=== PATIENT | female | born 1965 | race Caucasian/White ===

== ENCOUNTER → 2016-06-02 | Outpatient (CLI) | payer BC ==
--- NOTE | 2016-06-02 19:40 | DIAGNOSTIC IMAGING REPORT ---
CHEST 2 VIEWS ROUTINE CLINICAL HISTORY: COUGH, WHEEZING, OTHER SPECIFIED SYMPTOMS AND SIGNS INVOLVING COMPARISON STUDY: No previous studies for comparison. FINDINGS: The bones soft tissues and hemidiaphragms are normal. The cardiomediastinal silhouette is normal. The lungs are clear. The pulmonary vasculature is normal. IMPRESSION: Negative chest. Electronically signed by: Mukund Sousa M.D. 06/02/2016 7:38 PM
== END | disposition home or self-care (01) ==
LOC: C.RAD 19:18
PROVIDERS: ATTEND Family Medicine
DX: R05 Cough (principal); R09.89 Other specified symptoms and signs involving the circulatory and respiratory systems; R06.2 Wheezing

== ENCOUNTER 2019-04-18 23:09 | Inpatient (IN) ==
[2019-04-18] MEDS ORDERED: SODIUM CHLORIDE 0.9% 1000ML 1,000 ML IV SCH (23:45)
[2019-04-18 23:59] LABS: Basophils # (auto) 0.07 K/uL (0-0.2); Basophils % (auto) 0.3 %; Eosinophils # (auto) 0.01 K/uL (0-0.5); Hematocrit (blood only) 54.3 % (37-47); Hemoglobin 18.9 g/dL (12.0-16.0); Immature Granulocytes # (auto) 0.69 K/uL (0.00-0.02); Immature Granulocytes % (auto) 3.1 %; Lymphocytes # (auto) 1.32 K/uL (1.2-3.4); Mean Corpuscular Hemoglobin 37.1 pg (25-34); Mean Corpuscular Hgb Conc 34.8 g/dL (32-36); Mean Corpuscular Volume 106.5 fL (80-100); Mean Platelet Volume 11.5 fL (7.4-10.4); Monocytes # (auto) 1.53 K/uL (0.11-0.59); Neutrophils # (auto) 18.33 K/uL (1.4-6.5); Neutrophils % (auto) 83.6 %; Platelet Count 246 K/uL (130-400); RDW Standard Deviation 55.3 fL (36.4-46.3); White Blood Count 21.95 K/uL (4.8-10.8)
[2019-04-19 00:05] LABS: Partial Thromboplastin Ratio 0.9; Partial Thromboplastin Time 23.7 Seconds (21.0-31.0); Prothrombin Time 10.1 Seconds (9.0-12.0)
[2019-04-19 00:28] LABS: Albumin Globulin Ratio 0.7 (0.9-2); Albumin Level 3.4 gm/dl (3.4-5.0); BUN Creatinine Ratio 12.8 (10-20); Bilirubin,Total 0.7 mg/dl (0.2-1); Calcium 10.1 mg/dl (8.5-10.1); Creatinine Clr Calc Pharmacy 44.5 ml/min; Est GFR (African American) 37.1; Globulin 5.2 gm/dl (2.5-4.0); Total Protein 8.6 gm/dl (6.4-8.2)
[2019-04-19] MEDS ORDERED: SODIUM CHLORIDE 0.9% 1000ML 1,000 ML IV ONE (00:47)
[2019-04-19 00:48] LABS: Allen Test Pos (Pos); HCO3 ABG 6 mmol/L (19-24); Oxygen Saturation ABG 93.5 % (90-95); PCO2 ABG 16 mmHg (35-46); PO2 ABG 71 mm/Hg (80-95); pH ABG 7.21 (7.35-7.45)
[2019-04-19] MEDS ORDERED: OPTIRAY 320 125ml IV PRN (01:09)
[2019-04-19] MEDS ORDERED: PIPERACILLIN/TAZOBACTAM 4.5 GM/120 ML BAG IV ONE (01:31)
[2019-04-19] MEDS ORDERED: LEVOFLOXACIN/D5W 750 MG/150 ML BAG IV STA (01:31)
[2019-04-19] MEDS ORDERED: PIPERACILL/TAZOBAC CONSULT ACTIVE PRN (01:31)
[2019-04-19] MEDS ORDERED: ED DKA INSULIN DRIP ONE ×2 (01:41→01:52)
[2019-04-19 01:49] LABS: Appearance Urine Slightly Cloudy (Clear); Blood Urine 1+ (Negative); Color Urine Yellow; Glucose Urine UA 2+ (Negative); Leukocyte Esterase Urine Negative (Negative); Nitrite Urine Negative (Negative); Protein Urine 1+ (Negative); Urobilinogen Urine Negative (Negative); pH Urine 5.5 (4.5-7.5)
[2019-04-19] MEDS ORDERED: GLUCAGON FOR INJ 1 MG VIAL SQ PRN (01:52)
[2019-04-19] MEDS ORDERED: DKA GOAL RANGE 150-250 mg/dl ONE ×2 (01:52→03:53)
[2019-04-19] MEDS ORDERED: GLUCOSE 40% GEL 15 GM TUBE PO PRN ×2 (01:52→04:45)
[2019-04-19] MEDS ORDERED: CARBOHYDRATES FOR HYPOGLYCEMIA PO PRN ×2 (01:52→04:45)
[2019-04-19] MEDS ORDERED: GLUCOSE 10 TABS/TUBE PO PRN ×2 (01:52→04:45)
[2019-04-19] MEDS ORDERED: DEXTROSE 50% 50 ML SYRINGE IV PRN ×2 (01:52→04:45)
[2019-04-19 01:58] LABS: Bilirubin Urine Negative (Negative); Ictotest Urine Negative (Negative); Ketones Urine 3+ (Negative)
[2019-04-19] MEDS ORDERED: SODIUM CHLORIDE 0.9% 1000ML 1,000 ML IV SCH (02:00)
[2019-04-19] MEDS ORDERED: NovoLIN-R BOLUS FROM BAG IV ONE ×2 (02:00→04:45)
[2019-04-19] MEDS ORDERED: INSULIN REGULAR 250 UNITS in SODIUM CHLORIDE 0.9% 247.5 ML IV SCH (02:00)
[2019-04-19 02:10] LABS: Epithelial Cell Urine 0-5 /lpf (0-5); Hyaline Casts Urine 0-5 /lpf (0-5); RBC Urine 0-4 /hpf (0-4)
[2019-04-19 02:11] LABS: Bacteria Urine 1+ (Negative); WBC Urine 0-5 /hpf (0-5)
[2019-04-19] MEDS ORDERED: LACTATED RINGER'S 1,000 ML IV ONE (02:41)
[2019-04-19 02:43] LABS: Magnesium 2.2 mg/dl (1.8-2.4); Phosphorus 2.2 mg/dl (2.5-4.9)
--- NOTE | 2019-04-19 03:09 | History & Physical Report ---
Date of Service April 19, 2019 Assessment & Plan (1) Bilateral pneumonia: (2) DKA (diabetic ketoacidoses): 54-year-old female with history of adrenal insufficiency, DM 2, hyperlipidemia, trigeminal neuralgia, anxiety presents with altered mental status and shortness of breath x3 days. Found to have DKA and concern for bilateral pneumonia Altered mental status Likely in the setting of DKA, dehydration and infection as below CT head: Negative Alert and oriented x4 on exam Monitor clinically DKA BSG 383 initially, beta hydroxybutyrate 74.6 Bicarb 11 anion gap 20, potassium 5 ABG: pH 7.2, CO2 16, O2 71 HCO3 6 UA: 2+ glucose and 3+ ketones Received 8.8 units of regular insulin Received 3 L of IV fluid bolus Started on on insulin drip and DKA protocol, a glycemic-consult placed Fluids at 200 cc/h Patient is on metformin and Januvia at homehold Sliding scale insulin when ready to be transitioned to subcu clinical informatics educator consulted Follow BMP Concern for bilateral pneumonia Possibly in the setting of aspiration given altered mental status WBC 21.9, afebrile CTA chest: No PE bilateral ground glass opacities concerning for possible pneumonia versus edema Lactate normal Pro-Kalin 0.4 Received Zosyn and Levaquin in the ED Started on azithromycin and Rocephin PAMELLA likely in the setting of DKA and dehydration BUN/creatinine 23/1.7 -known baseline creatinine On IV fluids Hold home spironolactone Continue to monitor BMP Adrenal insufficiency Patient on hydrocortisone 40 mg daily -can increase it to 50 mg daily starting Thursday, 3 days ago as she noted she was feeling ill Started on hydrocortisone 80 mg daily - stress dose Hypertension? Hold home's prolactin setting of PAMELLA Hypothyroidism TSH ordered Continue home levothyroxine Trigeminal neuralgia Continue home oxycodone as needed, gabapentin and amitriptyline Anxiety Continue BuSpar FEN/GI: IVF fluids, n.p.o. Code: Full DVT prophylaxis: SCDs, encourage ambulation Disposition: PCU telemetry (3) Adrenal insufficiency: (4) Trigeminal neuralgia: History of Present Illness Chief Complaint: Shortness of breath and altered mental status Primary Care Provider: Elissa Davis PA-C 54-year-old female with history of adrenal insufficiency, DM 2, hyperlipidemia, trigeminal neuralgia, anxiety presents with altered mental status and shortness of breath x3 days. Per her children she was unable to make dinner on Thursday as she was not feeling well. She was complaining of having heartburn and nausea at the time in addition to being short of breath. Thursday she slept most of the day and today as well. She was noted to be tripping and uncoordinated. Her daughter says she slipped over pillow but did not hit her head. She reports being cold, having a headache and dry cough. She is not sure she has had a fever. Denies any lightheadedness, chest pain, abdominal pain, vomiting, diarrhea, constipation, hematochezia, melena, hematuria, dysuria. Patient reports taking her diabetic medications and all other medications. She also reports increasing her hydrocortisone dose from 40 mg to 50 mg on Thursday as she relates she was not feeling well. However she did not have much to eat or drink on Thursday and today. Allergies Allergy/AdvReac Type Severity Reaction Status Date / Time No Known Allergies Allergy Unverified 04/19/19 00:22 Home Medications Home Medications Medication Instructions Recorded Confirmed Type alprazolam 0.5 mg PO DIRECTED PRN 04/19/19 04/19/19 History amitriptyline 25 mg PO HS 04/19/19 04/19/19 History amitriptyline 100 mg PO HS 04/19/19 04/19/19 History buspirone 15 mg PO BID 04/19/19 04/19/19 History empagliflozin [Jardiance] 10 mg PO DAILY 04/19/19 04/19/19 History escitalopram oxalate 10 mg PO DAILY 04/19/19 04/19/19 History gabapentin 800 mg PO QID 04/19/19 04/19/19 History hydrocortisone 10 mg PO DIRECTED 04/19/19 04/19/19 History levothyroxine [Synthroid] 100 mcg PO DAILY 04/19/19 04/19/19 History metformin 500 mg PO BID 04/19/19 04/19/19 History oxycodone 10 mg PO DIRECTED PRN 04/19/19 04/19/19 History spironolactone 100 mg PO DAILY 04/19/19 04/19/19 History zolpidem [Ambien] 10 mg PO HS PRN 04/19/19 04/19/19 History Past Med/Surg History Medical History Adrenal insufficiency Diabetes Trigeminal neuralgia Family History Other No significant family history Social History Current Living Situation: Family current occupational status: employed Feels Safe at Home: Yes Smoking Status: Never smoker Review of Systems Review of Systems: As per HPI Physical Exam Physical Exam: General: In mild distress Neuro: A&O x 4 HEENT: dry oral mucosa Pulm: CTAB equal breath sounds bilaterally, tachypneic to 30s, ketotic breath CV: mildly tachycardic, regular rhythm no m/r/g Abdomen:+BS, no TTP in all quadrants, non-distended LE: no LE edema, no calf TTP Results & Data Vital Signs (Past 12 Hours) Vital Signs Temp Pulse Pulse Resp BP BP Pulse Ox 04/19/19 02:37 105 H 34 H 134/84 94 04/19/19 01:20 104 H 35 H 95 04/19/19 01:11 36.7 C 108 H 42 H 95 04/19/19 01:10 107 H 40 H 96 04/19/19 01:09 108 H 36 H 153/105 H 95 04/19/19 01:08 107 H 37 H 95 04/19/19 01:07 108 H 38 H 153/105 H 95 04/19/19 00:51 98 H 36 H 146/100 H 96 04/19/19 00:42 110 H 30 H 149/89 H 94 04/19/19 00:40 111 H 34 H 94 04/19/19 00:34 111 H 32 H 93 04/19/19 00:28 105/68 04/19/19 00:20 108 H 25 H 04/19/19 00:10 106 H 35 H 04/19/19 00:00 107 H 34 H 04/18/19 23:50 109 H 40 H 94 04/18/19 23:47 109 H 43 H 144/109 H 95 04/18/19 23:40 111 H 36 H 95 04/18/19 23:35 113 H 43 H 127/100 95 04/18/19 23:30 117 H 40 H 04/18/19 23:24 119 H 34 H 04/18/19 23:23 118 H 90/80 L 04/18/19 23:12 79 32 H 90/80 L 99 Laboratory Results Abnormal lab results 04/18/19 04/18/19 04/19/19 Range/Units 23:35 23:35 00:34 WBC 21.95 H (4.8-10.8) K/uL Hgb 18.9 H (12.0-16.0) g/dL Hct 54.3 H (37-47) % MCV 106.5 H (80-100) fL MCH 37.1 H (25-34) pg RDW Std Deviation 55.3 H (36.4-46.3) fL MPV 11.5 H (7.4-10.4) fL Immature Gran # (Auto) 0.69 H (0.00-0.02) K/uL Neut # (Auto) 18.33 H (1.4-6.5) K/uL Mckean # (Auto) 1.53 H (0.11-0.59) K/uL ABG pH 7.21 L (7.35-7.45) ABG pCO2 16 L (35-46) mmHg ABG pO2 71 L (80-95) mm/Hg ABG HCO3 6 L (19-24) mmol/L ABG Base Excess -19.0 L (-9-1.8) mEq/L Sodium 132 L (136-145) mmol/L Carbon Dioxide 11 L (21-32) mmol/L Anion Gap 20.0 H (3-11) BUN 23 H (7-18) mg/dl Creatinine 1.77 H (0.6-1.2) mg/dl Glucose 383 H* (70-99) mg/dl Phosphorus (2.5-4.9) mg/dl AST 40 H (15-37) U/L Alkaline Phosphatase 153 H (45-117) U/L Total Protein 8.6 H (6.4-8.2) gm/dl Globulin 5.2 H (2.5-4.0) gm/dl Albumin/Globulin Ratio 0.7 L (0.9-2) Beta-Hydroxybutyric Acd (0.2-2.81) mg/dl Urine Protein (Negative) Urine Glucose (UA) (Negative) Urine Ketones (Negative) Urine Blood (Negative) Urine Bacteria (Negative) Granular Casts (0) /lpf 04/19/19 04/19/19 04/19/19 Range/Units 00:34 01:40 02:02 WBC (4.8-10.8) K/uL Hgb (12.0-16.0) g/dL Hct (37-47) % MCV (80-100) fL MCH (25-34) pg RDW Std Deviation (36.4-46.3) fL MPV (7.4-10.4) fL Immature Gran # (Auto) (0.00-0.02) K/uL Neut # (Auto) (1.4-6.5) K/uL Mckean # (Auto) (0.11-0.59) K/uL ABG pH (7.35-7.45) ABG pCO2 (35-46) mmHg ABG pO2 (80-95) mm/Hg ABG HCO3 (19-24) mmol/L ABG Base Excess (-9-1.8) mEq/L Sodium (136-145) mmol/L Carbon Dioxide (21-32) mmol/L Anion Gap (3-11) BUN (7-18) mg/dl Creatinine (0.6-1.2) mg/dl Glucose (70-99) mg/dl Phosphorus 2.2 L (2.5-4.9) mg/dl AST (15-37) U/L Alkaline Phosphatase (45-117) U/L Total Protein (6.4-8.2) gm/dl Globulin (2.5-4.0) gm/dl Albumin/Globulin Ratio (0.9-2) Beta-Hydroxybutyric Acd 74.66 H 70.39 H (0.2-2.81) mg/dl Urine Protein 1+ H (Negative) Urine Glucose (UA) 2+ H (Negative) Urine Ketones 3+ H (Negative) Urine Blood 1+ H (Negative) Urine Bacteria 1+ H (Negative) Granular Casts 5-10 H (0) /lpf Code Status & VTE Plan Code Status Full code VTE Prophylaxis Plan VTE Prophylaxis will be ordered: Yes Supervising Physician Co-Signing Physician Notes Patient seen and examined, chart reviewed, case discussed with Dr. Whitfield and I agree with her assessment and plan as documented above. Briefly patient is a 54-year-old female presenting what appears to be DKA. Elevated blood sugar, anion gap metabolic acidosis with pH equal 7.21. On exam she is afebrile, tachycardic, tachypneic with Kussmaul respirations, ketotic odor Dry mucous membranes S1-S2 present, tachycardic Lungs CTA Abdomen bowel sounds present soft, nontender, nondistended Extremities without edema Labs and images reviewed Assessment/plan Continue aggressive IV fluids, insulin drip per DKA protocol Will double home steroid dosage and watch closely for evidence of adrenal insufficiency -Ceftriaxone and azithromycin for possible pneumonia -Remainder of plan as above Resident Activity Tracking Resident Involvement: Resident Care Provided Care Provided: Adult Hospital Medicine (1) DKA (diabetic ketoacidoses) Diabetes mellitus complication detail: without coma Diabetes mellitus type: other specified (including VICKY) Qualified Code(s): E13.10 - Other specified diabetes mellitus with ketoacidosis without coma (2) Bilateral pneumonia Lung location: unspecified part of lung Pneumonia type: due to unspecified organism Qualified Code(s): J18.9 - Pneumonia, unspecified organism
[2019-04-19 03:10] LABS: Beta-Hydroxybutyrate 70.39 mg/dl (0.2-2.81)
[2019-04-19] MEDS ORDERED: ALPRAZolam 0.5 MG TABLET PO PRN ×2 (03:53)
[2019-04-19] MEDS ORDERED: ONDANSETRON INJ 2 MG/ML 2 ML VIAL IV PRN (03:53)
[2019-04-19] MEDS ORDERED: ZOLPIDEM TARTRATE 10 MG TAB PO PRN (03:53)
[2019-04-19] MEDS ORDERED: OXYCODONE HCL IR 5 MG TAB (IMMEDIATE RELEASE) PO PRN (03:53)
[2019-04-19] MEDS ORDERED: LACTATED RINGER'S 1,000 ML IV SCH (03:53)
--- NOTE | 2019-04-19 04:18 | Billing Data ---
Coding Level of Care Code 33114 Initial Inpt Care Lvl 3
[2019-04-19] MEDS ORDERED: PHARMACY GLYCEMIC MGMT CONSULT PRN (04:30)
--- NOTE | 2019-04-19 04:33 | Emergency Department Note ---
Entered by Daryl Storey acting as a scribe for Lo Snell DO History of Present Illness General Chief complaint: Shortness of Breath/Dyspnea Stated complaint: NAUSEA, EXHAUSTION, OUT OF BREATH Time Seen by Provider: 04/18/19 23:18 Source: patient History of Present Illness Onset (ago): day(s) (yesterday) Location: chest Pain Consistency: + constant Quality: + other (SOB) Associated symptoms: + other (Positive for issues with coordination, a cough, vomiting, sleeping more than usual, and not eating a lot.) The patient is a 54 year old female who presents to the emergency department with complaints of constant SOB beginning yesterday. The patient states that she developed issues with coordination a few days ago. She notes that she keeps running into things. She reports that she developed SOB and a cough yesterday. She also complains of vomiting and she states that she has been sleeping more over the last few days because she has been so tired. She notes that she has not been eating a lot over the last few days. She reports that she has a history of trigeminal neuralgia, adrenal insufficiency, and diabetes, but she denies any history of breathing problems and hypotension. The patient states that her last sugar was 171. She notes that she drank an entire bottle of owen beer this morning because she thought that her blood sugar was low. She reports that she takes 6-7 oxycodone pills a day, but she believes that she has never withdrawn from her oxycodone before. Home Medications Home Medications Medication Instructions Recorded Confirmed Type alprazolam 0.5 mg PO DIRECTED PRN 04/19/19 04/19/19 History amitriptyline 25 mg PO HS 04/19/19 04/19/19 History amitriptyline 100 mg PO HS 04/19/19 04/19/19 History buspirone 15 mg PO BID 04/19/19 04/19/19 History empagliflozin [Jardiance] 10 mg PO DAILY 04/19/19 04/19/19 History escitalopram oxalate 10 mg PO DAILY 04/19/19 04/19/19 History gabapentin 800 mg PO QID 04/19/19 04/19/19 History hydrocortisone 10 mg PO DIRECTED 04/19/19 04/19/19 History levothyroxine [Synthroid] 100 mcg PO DAILY 04/19/19 04/19/19 History metformin 500 mg PO BID 04/19/19 04/19/19 History oxycodone 10 mg PO DIRECTED PRN 04/19/19 04/19/19 History spironolactone 100 mg PO DAILY 04/19/19 04/19/19 History zolpidem [Ambien] 10 mg PO HS PRN 04/19/19 04/19/19 History Allergies Allergy/AdvReac Type Severity Reaction Status Date / Time No Known Allergies Allergy Unverified 04/19/19 00:22 Past Med/Surg History Medical History Adrenal insufficiency Diabetes Trigeminal neuralgia Family History Other No significant family history Social History Current Living Situation: Family current occupational status: employed Feels Safe at Home: Yes Smoking Status: Never smoker Review of Systems See HPI for pertinent positives & negatives. and A total of 10 systems reviewed and were otherwise negative Physical Exam Vital Signs Vital Signs - 24 hr 04/18/19 23:12 04/18/19 23:23 04/18/19 23:24 Temperature Temperature Source Pulse Rate 79 118 H 119 H Pulse Rate [Right Finger] Pulse Rate from SpO2 Sensor Pulse Rhythm Regular Pulse Rhythm [Right Finger] Pulse Strength Normal Pulse Strength [Right Finger] Respiratory Rate 32 H 34 H Respiratory Effort / Characteristics Non-Labored Respiratory Depth Normal Respiratory Pattern Regular Blood Pressure 90/80 L 90/80 L Blood Pressure [Right Arm] Blood Pressure Mean 83 82 Blood Pressure Mean [Right Arm] Blood Pressure Position Sitting Blood Pressure Position [Right Arm] Pulse Oximetry 99 Oxygen Delivery Method Room Air Sepsis Recent Fever Within 48 Hours No Sepsis Action Taken by Nursing No Action Required 04/18/19 23:30 04/18/19 23:35 04/18/19 23:40 Temperature Temperature Source Pulse Rate 117 H 113 H 111 H Pulse Rate [Right Finger] Pulse Rate from SpO2 Sensor 114 H 111 H Pulse Rhythm Pulse Rhythm [Right Finger] Pulse Strength Pulse Strength [Right Finger] Respiratory Rate 40 H 43 H 36 H Respiratory Effort / Characteristics Respiratory Depth Respiratory Pattern Blood Pressure 127/100 Blood Pressure [Right Arm] Blood Pressure Mean 116 Blood Pressure Mean [Right Arm] Blood Pressure Position Blood Pressure Position [Right Arm] Pulse Oximetry 95 95 Oxygen Delivery Method Sepsis Recent Fever Within 48 Hours Sepsis Action Taken by Nursing 04/18/19 23:47 04/18/19 23:50 04/19/19 00:00 Temperature Temperature Source Pulse Rate 109 H 109 H 107 H Pulse Rate [Right Finger] Pulse Rate from SpO2 Sensor 109 H 110 H Pulse Rhythm Pulse Rhythm [Right Finger] Pulse Strength Pulse Strength [Right Finger] Respiratory Rate 43 H 40 H 34 H Respiratory Effort / Characteristics Respiratory Depth Respiratory Pattern Blood Pressure 144/109 H Blood Pressure [Right Arm] Blood Pressure Mean 130 Blood Pressure Mean [Right Arm] Blood Pressure Position Blood Pressure Position [Right Arm] Pulse Oximetry 95 94 Oxygen Delivery Method Sepsis Recent Fever Within 48 Hours Sepsis Action Taken by Nursing 04/19/19 00:10 04/19/19 00:20 04/19/19 00:28 Temperature Temperature Source Pulse Rate 106 H 108 H Pulse Rate [Right Finger] Pulse Rate from SpO2 Sensor Pulse Rhythm Pulse Rhythm [Right Finger] Pulse Strength Pulse Strength [Right Finger] Respiratory Rate 35 H 25 H Respiratory Effort / Characteristics Respiratory Depth Respiratory Pattern Blood Pressure 105/68 Blood Pressure [Right Arm] Blood Pressure Mean 72 Blood Pressure Mean [Right Arm] Blood Pressure Position Blood Pressure Position [Right Arm] Pulse Oximetry Oxygen Delivery Method Sepsis Recent Fever Within 48 Hours Sepsis Action Taken by Nursing 04/19/19 00:34 04/19/19 00:40 04/19/19 00:42 Temperature Temperature Source Pulse Rate 111 H 111 H 110 H Pulse Rate [Right Finger] Pulse Rate from SpO2 Sensor 111 H 111 H 111 H Pulse Rhythm Pulse Rhythm [Right Finger] Pulse Strength Pulse Strength [Right Finger] Respiratory Rate 32 H 34 H 30 H Respiratory Effort / Characteristics Respiratory Depth Respiratory Pattern Blood Pressure 149/89 H Blood Pressure [Right Arm] Blood Pressure Mean 125 Blood Pressure Mean [Right Arm] Blood Pressure Position Blood Pressure Position [Right Arm] Pulse Oximetry 93 94 94 Oxygen Delivery Method Sepsis Recent Fever Within 48 Hours Sepsis Action Taken by Nursing 04/19/19 00:51 04/19/19 01:07 04/19/19 01:08 Temperature Temperature Source Pulse Rate 108 H 107 H Pulse Rate [Right Finger] 98 H Pulse Rate from SpO2 Sensor 156 H 108 H Pulse Rhythm Pulse Rhythm [Right Finger] Regular Pulse Strength Pulse Strength [Right Finger] Respiratory Rate 36 H 38 H 37 H Respiratory Effort / Characteristics Respiratory Depth Respiratory Pattern Blood Pressure 153/105 H Blood Pressure [Right Arm] 146/100 H Blood Pressure Mean 120 Blood Pressure Mean [Right Arm] 115 Blood Pressure Position Blood Pressure Position [Right Arm] Pulse Oximetry 96 95 95 Oxygen Delivery Method Room Air Sepsis Recent Fever Within 48 Hours Sepsis Action Taken by Nursing 04/19/19 01:09 04/19/19 01:10 04/19/19 01:11 Temperature 36.7 C Temperature Source Oral Pulse Rate 107 H Pulse Rate [Right Finger] 108 H 108 H Pulse Rate from SpO2 Sensor 108 H Pulse Rhythm Pulse Rhythm [Right Finger] Regular Pulse Strength Pulse Strength [Right Finger] Normal Respiratory Rate 36 H 40 H 42 H Respiratory Effort / Characteristics Non-Labored Respiratory Depth Normal Respiratory Pattern Blood Pressure Blood Pressure [Right Arm] 153/105 H Blood Pressure Mean Blood Pressure Mean [Right Arm] 121 Blood Pressure Position Blood Pressure Position [Right Arm] Lying Pulse Oximetry 95 96 95 Oxygen Delivery Method Room Air Room Air Sepsis Recent Fever Within 48 Hours Sepsis Action Taken by Nursing 04/19/19 01:20 04/19/19 02:37 Temperature Temperature Source Pulse Rate 104 H Pulse Rate [Right Finger] 105 H Pulse Rate from SpO2 Sensor 103 H Pulse Rhythm Pulse Rhythm [Right Finger] Regular Pulse Strength Pulse Strength [Right Finger] Normal Respiratory Rate 35 H 34 H Respiratory Effort / Characteristics Respiratory Depth Normal Respiratory Pattern Regular Blood Pressure Blood Pressure [Right Arm] 134/84 Blood Pressure Mean Blood Pressure Mean [Right Arm] 100 Blood Pressure Position Blood Pressure Position [Right Arm] Lying Pulse Oximetry 95 94 Oxygen Delivery Method Room Air Sepsis Recent Fever Within 48 Hours Sepsis Action Taken by Nursing General: Appears very SOB with a respiratory rate greater than 60. HEENT: Head - normocephalic and atraumatic. Pupils are equal, round, and reactive to light. Extraocular eye muscles are intact and sclera are anicteric. Ears - bilaterally patent canals with noninjected tympanic membranes and no evidence of hemotympanum. Nose - moist nasal mucosa without discharge. Mouth - extremely dry buccal mucosa. Oropharynx is nonerythematous and there is no tonsillar exudate or edema noted. Neck: Supple; no cervical lymphadenopathy. Heart: Regular rhythm and tachycardic. There is a normal S1 and S2 with no murmurs, clicks, or gallops appreciated. Lungs: Clear to auscultation bilaterally with no wheezes, rales, or rhonchi. Abdomen: Soft, completely nontender, nondistended, with good bowel sounds. There are no palpable pulsatile masses or hepatosplenomegaly. There is no guarding, rigidity, or rebound noted. Extremities: No evidence of cyanosis, clubbing, or edema. There are easily palpable peripheral pulses. Skin: Extremely dry with poor turgor, no rashes. Neuro:The patient is awake and alert, oriented to day, time, and place. Muscle strength is 5/5 in all 4 extremities. The patient has equal bottom turning lathe turner strength and equal pedal push and pull. There are no cerebellar signs. Course Course 2323: The patient was evaluated in room B5. A complete history and physical examination were performed. Nursing notes and previous electronic medical records were reviewed. IV lock was established and labs were drawn as above. 0000: I rechecked the patient. Her blood pressure is improved and her heart rate is down slightly. Her blood sugar is almost 500. 0031: I reevaluated and updated the patient. She is already on a high dose of hydrocortisone at 50mg. Over the past week she has been trying to decrease her dose. She notes that when her illness started, she upped it back to 50mg. She reports that her normal blood sugar is in the 300s, so she thought that her blood sugar of 171 earlier was low, which prompted her to drink a bottle of soda. I performed a neurologic exam on the patient which was normal. She states that her symptoms started around 1700 on Thursday. She is going to CT and her blood pressure remains stable. She will get additional fluids. Her pH is 7.2. 0044: Sodium Chloride 1000 mls @ 999 mls/hr IV 0114: Sodium Chloride 1000 mls @ 999 mls/hr IV 0133: Upon reevaluation, the patient is stable. I discussed the findings and the treatment plan with the patient. She expresses agreement and understanding. I spoke with Dr. Owusu of the [facility] Hospitalist Service. The patient will be evaluated for further management. 0201: I rechecked the patient. I answered questions of the patient and her daughters. Consultations Consultation #1: I reviewed the patient's case with Dr. Owusu - [facility]. She will evaluate the patient for further management. Time: 01:33 Administered Medications Discontinued Medications Sodium Chloride (Nss 1000ml) 1,000 mls @ 999 mls/hr IV .Q1H1M MIGUEL ANGEL Stop: 04/19/19 00:45 Last Infusion: 04/19/19 01:14 Dose: 0 mls/hr Documented by: [id number] Admin: 04/19/19 00:44 Dose: 999 mls/hr Documented by: [id number] Sodium Chloride (Nss 1000ml) 1,000 mls @ 999 mls/hr IV .Q1H1M ONE Stop: 04/19/19 01:47 Last Infusion: 04/19/19 02:27 Dose: 0 mls/hr Documented by: [id number] Admin: 04/19/19 01:14 Dose: 999 mls/hr Documented by: [id number] Piperacillin Sod/Tazobactam Sod (Zosyn) 4.5 gm in 120 mls @ 240 mls/hr IV NOW ONE Stop: 04/19/19 02:00 Last Infusion: 04/19/19 03:21 Dose: 0 mls/hr Documented by: [id number] Admin: 04/19/19 02:27 Dose: 240 mls/hr Documented by: [id number] Levofloxacin/Dextrose (Levaquin/D5w) 750 mg in 150 mls @ 100 mls/hr IV NOW STA Stop: 04/19/19 03:00 Last Admin: 04/19/19 02:46 Dose: 100 mls/hr Documented by: [id number] Sodium Chloride (Nss 1000ml) 1,000 mls @ 200 mls/hr IV .Q5H MIGUEL ANGEL Stop: 05/19/19 01:59 Last Admin: 04/19/19 03:20 Dose: 200 mls/hr Documented by: [id number] Lactated Ringer's (Lr) 1,000 mls @ 999 mls/hr IV .Q1H1M ONE Stop: 04/19/19 03:41 Last Admin: 04/19/19 03:20 Dose: 999 mls/hr Documented by: [id number] Insulin Human Regular (Novolin R Bolus From Bag) 8.8 units IV ONE ONE Stop: 04/19/19 02:01 Last Admin: 04/19/19 02:46 Dose: Not Given Documented by: [id number] Ioversol (Optiray 320 125ml) 125 ml IV ONCE PRN PRN Reason: Interaction Checking Stop: 04/23/19 01:08 Last Admin: 04/19/19 01:10 Dose: 84 ml Documented by: [id number] Critical Care Time Critical Care Time: Yes Total Critical Care Time: 65 I have personally spent 65 minutes of critical care time in the direct management of this patient. This includes bedside care, interpretation of diagnostic studies, and testing, discussion with consultants, patient, and family members, and other required patient management activities. This 65 minutes is in excess of all separately billable procedures. Medical Decision Making Differential Diagnosis Differential diagnoses include: PE, DKA, opioid withdrawal, acute renal failure, and pneumonia. Medical Records Attestation: I reviewed the patient's medical records. Home Medications Current Medication List: was personally reviewed by me Laboratory Data Attestation: I reviewed the patient's lab results. Result diagrams: 04/18/19 23:35 04/18/19 23:35 Lab Results 04/18/19 04/18/19 04/18/19 Range/Units 23:35 23:35 23:35 WBC 21.95 H (4.8-10.8) K/uL RBC 5.10 (4.2-5.4) M/uL Hgb 18.9 H (12.0-16.0) g/dL Hct 54.3 H (37-47) % MCV 106.5 H (80-100) fL MCH 37.1 H (25-34) pg MCHC 34.8 (32-36) g/dL RDW Std Deviation 55.3 H (36.4-46.3) fL RDW Coeff of Juan 14.0 (11.5-14.5) % Plt Count 246 (130-400) K/uL MPV 11.5 H (7.4-10.4) fL Immature Gran % (Auto) 3.1 % Neut % (Auto) 83.6 % Lymph % (Auto) 6.0 % Campbell % (Auto) 7.0 % Eos % (Auto) 0.0 % Baso % (Auto) 0.3 % Immature Gran # (Auto) 0.69 H (0.00-0.02) K/uL Neut # (Auto) 18.33 H (1.4-6.5) K/uL Lymph # (Auto) 1.32 (1.2-3.4) K/uL Campbell # (Auto) 1.53 H (0.11-0.59) K/uL Eos # (Auto) 0.01 (0-0.5) K/uL Baso # (Auto) 0.07 (0-0.2) K/uL PT 10.1 (9.0-12.0) Seconds INR 1.0 (0.9-1.1) APTT 23.7 (21.0-31.0) Seconds PTT Ratio 0.9 ABG pH (7.35-7.45) ABG pCO2 (35-46) mmHg ABG pO2 (80-95) mm/Hg ABG HCO3 (19-24) mmol/L ABG O2 Saturation (90-95) % ABG Base Excess (-9-1.8) mEq/L Mil Test (Pos) Oxygen Given Sodium 132 L (136-145) mmol/L Potassium 5.0 (3.5-5.1) mmol/L Chloride 101 (98-107) mmol/L Carbon Dioxide 11 L (21-32) mmol/L Anion Gap 20.0 H (3-11) BUN 23 H (7-18) mg/dl Creatinine 1.77 H (0.6-1.2) mg/dl Est Cr Clr Drug Dosing 44.5 ml/min Est GFR ( Amer) 37.1 Est GFR (Non-Af Amer) 32.0 BUN/Creatinine Ratio 12.8 (10-20) Glucose 383 H* (70-99) mg/dl Lactate (0.4-2.0) mmol/L Calcium 10.1 (8.5-10.1) mg/dl Phosphorus (2.5-4.9) mg/dl Magnesium (1.8-2.4) mg/dl Total Bilirubin 0.7 (0.2-1) mg/dl AST 40 H (15-37) U/L ALT 73 (12-78) U/L Alkaline Phosphatase 153 H (45-117) U/L Total Protein 8.6 H (6.4-8.2) gm/dl Albumin 3.4 (3.4-5.0) gm/dl Globulin 5.2 H (2.5-4.0) gm/dl Albumin/Globulin Ratio 0.7 L (0.9-2) Beta-Hydroxybutyric Acd (0.2-2.81) mg/dl Procalcitonin (0-0.5) ng/ml Urine Color Urine Appearance (Clear) Urine pH (4.5-7.5) Ur Specific [place] (1.000-1.030) Urine Protein (Negative) Urine Glucose (UA) (Negative) Urine Ketones (Negative) Urine Blood (Negative) Urine Nitrite (Negative) Urine Bilirubin (Negative) Urine Urobilinogen (Negative) Ur Leukocyte Esterase (Negative) Urine RBC (0-4) /hpf Urine WBC (0-5) /hpf Ur Epithelial Cells (0-5) /lpf Urine Bacteria (Negative) Hyaline Casts (0-5) /lpf Granular Casts (0) /lpf 04/18/19 04/19/19 04/19/19 Range/Units 23:35 00:34 00:34 WBC (4.8-10.8) K/uL RBC (4.2-5.4) M/uL Hgb (12.0-16.0) g/dL Hct (37-47) % MCV (80-100) fL MCH (25-34) pg MCHC (32-36) g/dL RDW Std Deviation (36.4-46.3) fL RDW Coeff of Juan (11.5-14.5) % Plt Count (130-400) K/uL MPV (7.4-10.4) fL Immature Gran % (Auto) % Neut % (Auto) % Lymph % (Auto) % Campbell % (Auto) % Eos % (Auto) % Baso % (Auto) % Immature Gran # (Auto) (0.00-0.02) K/uL Neut # (Auto) (1.4-6.5) K/uL Lymph # (Auto) (1.2-3.4) K/uL Campbell # (Auto) (0.11-0.59) K/uL Eos # (Auto) (0-0.5) K/uL Baso # (Auto) (0-0.2) K/uL PT (9.0-12.0) Seconds INR (0.9-1.1) APTT (21.0-31.0) Seconds PTT Ratio ABG pH 7.21 L (7.35-7.45) ABG pCO2 16 L (35-46) mmHg ABG pO2 71 L (80-95) mm/Hg ABG HCO3 6 L (19-24) mmol/L ABG O2 Saturation 93.5 (90-95) % ABG Base Excess -19.0 L (-9-1.8) mEq/L Mil Test Pos (Pos) Oxygen Given RA Sodium (136-145) mmol/L Potassium (3.5-5.1) mmol/L Chloride (98-107) mmol/L Carbon Dioxide (21-32) mmol/L Anion Gap (3-11) BUN (7-18) mg/dl Creatinine (0.6-1.2) mg/dl Est Cr Clr Drug Dosing ml/min Est GFR ( Amer) Est GFR (Non-Af Amer) BUN/Creatinine Ratio (10-20) Glucose (70-99) mg/dl Lactate 1.6 (0.4-2.0) mmol/L Calcium (8.5-10.1) mg/dl Phosphorus (2.5-4.9) mg/dl Magnesium (1.8-2.4) mg/dl Total Bilirubin (0.2-1) mg/dl AST (15-37) U/L ALT (12-78) U/L Alkaline Phosphatase (45-117) U/L Total Protein (6.4-8.2) gm/dl Albumin (3.4-5.0) gm/dl Globulin (2.5-4.0) gm/dl Albumin/Globulin Ratio (0.9-2) Beta-Hydroxybutyric Acd (0.2-2.81) mg/dl Procalcitonin 0.40 (0-0.5) ng/ml Urine Color Urine Appearance (Clear) Urine pH (4.5-7.5) Ur Specific [place] (1.000-1.030) Urine Protein (Negative) Urine Glucose (UA) (Negative) Urine Ketones (Negative) Urine Blood (Negative) Urine Nitrite (Negative) Urine Bilirubin (Negative) Urine Urobilinogen (Negative) Ur Leukocyte Esterase (Negative) Urine RBC (0-4) /hpf Urine WBC (0-5) /hpf Ur Epithelial Cells (0-5) /lpf Urine Bacteria (Negative) Hyaline Casts (0-5) /lpf Granular Casts (0) /lpf 04/19/19 04/19/19 04/19/19 Range/Units 00:34 01:40 02:02 WBC (4.8-10.8) K/uL RBC (4.2-5.4) M/uL Hgb (12.0-16.0) g/dL Hct (37-47) % MCV (80-100) fL MCH (25-34) pg MCHC (32-36) g/dL RDW Std Deviation (36.4-46.3) fL RDW Coeff of Juan (11.5-14.5) % Plt Count (130-400) K/uL MPV (7.4-10.4) fL Immature Gran % (Auto) % Neut % (Auto) % Lymph % (Auto) % Campbell % (Auto) % Eos % (Auto) % Baso % (Auto) % Immature Gran # (Auto) (0.00-0.02) K/uL Neut # (Auto) (1.4-6.5) K/uL Lymph # (Auto) (1.2-3.4) K/uL Campbell # (Auto) (0.11-0.59) K/uL Eos # (Auto) (0-0.5) K/uL Baso # (Auto) (0-0.2) K/uL PT (9.0-12.0) Seconds INR (0.9-1.1) APTT (21.0-31.0) Seconds PTT Ratio ABG pH (7.35-7.45) ABG pCO2 (35-46) mmHg ABG pO2 (80-95) mm/Hg ABG HCO3 (19-24) mmol/L ABG O2 Saturation (90-95) % ABG Base Excess (-9-1.8) mEq/L Mil Test (Pos) Oxygen Given Sodium (136-145) mmol/L Potassium (3.5-5.1) mmol/L Chloride (98-107) mmol/L Carbon Dioxide (21-32) mmol/L Anion Gap (3-11) BUN (7-18) mg/dl Creatinine (0.6-1.2) mg/dl Est Cr Clr Drug Dosing ml/min Est GFR ( Amer) Est GFR (Non-Af Amer) BUN/Creatinine Ratio (10-20) Glucose (70-99) mg/dl Lactate (0.4-2.0) mmol/L Calcium (8.5-10.1) mg/dl Phosphorus 2.2 L (2.5-4.9) mg/dl Magnesium 2.2 (1.8-2.4) mg/dl Total Bilirubin (0.2-1) mg/dl AST (15-37) U/L ALT (12-78) U/L Alkaline Phosphatase (45-117) U/L Total Protein (6.4-8.2) gm/dl Albumin (3.4-5.0) gm/dl Globulin (2.5-4.0) gm/dl Albumin/Globulin Ratio (0.9-2) Beta-Hydroxybutyric Acd 74.66 H 70.39 H (0.2-2.81) mg/dl Procalcitonin (0-0.5) ng/ml Urine Color Yellow Urine Appearance Slightly Cloudy (Clear) Urine pH 5.5 (4.5-7.5) Ur Specific [place] 1.020 (1.000-1.030) Urine Protein 1+ H (Negative) Urine Glucose (UA) 2+ H (Negative) Urine Ketones 3+ H (Negative) Urine Blood 1+ H (Negative) Urine Nitrite Negative (Negative) Urine Bilirubin Negative (Negative) Urine Urobilinogen Negative (Negative) Ur Leukocyte Esterase Negative (Negative) Urine RBC 0-4 (0-4) /hpf Urine WBC 0-5 (0-5) /hpf Ur Epithelial Cells 0-5 (0-5) /lpf Urine Bacteria 1+ H (Negative) Hyaline Casts 0-5 (0-5) /lpf Granular Casts 5-10 H (0) /lpf Imaging Data Attestation: I personally reviewed and interpreted this imaging study as follows: My Impression: CHEST X-RAY: Bilateral infiltrates vs. interstitial edema. No cardiomegaly. Radiologist's Impression: Radiology results as stated below per my review and the radiologist's interpretation: CTA CHEST: Limited by motion. No obvious large central pulmonary embolus. Bilateral groundglass opacities coul d be from edema, pneumonia, allergic response, or hemorrhage. There is a broader differential. No effusion. Fatty liver. Small hiatal hernia. Radiologist: Luis Lima MD. CT HEAD: No acute intracranial process. Radiologist: Lusi Lima MD. ECG Data Attestation: I personally reviewed and interpreted this ECG as follows: Indication: + SOB/dyspnea Rate (beats per minute): 112 Rhythm: + sinus tachycardia ECG ST segments: no ST depression and no ST elevation ECG Findings: no PACs and no PVCs Blood Pressure Blood Pressure Findings: Elevated blood pressure Blood Pressure Disposition: further management by hospitalist AVNI Wood The patient is a 54 year old female who presents to the emergency department with complaints of constant SOB beginning yesterday. The patient has been somewhat confused and off balance for the past couple days as well. The patient has a history of adrenal insufficiency and increased her dose of hydrocortisone over the past couple days since she has been sick. The patient has a history of diabetes for which she takes oral meds. Her sugars have been running high. The patient states that she slept for approximately 20 hours in the past 24 hours and has not been getting up to drink fluids. Laboratory studies reveal evidence of DKA. ABG revealed a pH of 7.2 with an elevated PCO2 and a low PO2. The patient is clearly acidotic. The patient was hypotensive on presentation. She was bolused with IV crystalloid. Her blood pressure did seem to respond to this. I am concerned about her shortness of breath, hypotension, and low PO2. She went for CT scan of the chest to rule out PE. This was negative. However, there were groundglass opacities in both lungs concerning for pneumonia. Given the sudden onset of the patient's symptoms and significant leukocytosis, I think this is infectious. A septic protocol was performed. the patient was started on antibiotics and requires admission to the hospital. CT scan of the brain was negative. She was treated with IV fluids and an insulin drip was ordered. I discussed the case with the [facility] Hospitalist and they will evaluate for further management. Impression & Plan Bilateral pneumonia, Hypotension, DKA (diabetic ketoacidoses), Adrenal insufficiency Discharge Plan Visit Data *Final* Discharge Date/Time: 04/19/19 03:30 Chief Complaint: Shortness of Breath/Dyspnea Stated Complaint: NAUSEA, EXHAUSTION, OUT OF BREATH ED Provider: Lo Snell Discharge Problem: Bilateral pneumonia, Hypotension, DKA (diabetic ketoacidoses), Adrenal insufficiency Patient Disposition: Admitted As Inpatient Discharge Instructions Interventions: ED Discharge Assessment Last Done: 04/19/19 03:30 Discharge Problem: Bilateral pneumonia Qualifiers: Pneumonia type: due to unspecified organism Lung location: unspecified part of lung Qualified Code(s): J18.9 - Pneumonia, unspecified organism Hypotension Qualifiers: Hypotension type: unspecified hypotension type Qualified Code(s): I95.9 - Hypotension, unspecified DKA (diabetic ketoacidoses) Qualifiers: Diabetes mellitus type: other specified (including VICKY) Diabetes mellitus complication detail: without coma Qualified Code(s): E13.10 - Other specified diabetes mellitus with ketoacidosis without coma The scribe's documentation has been prepared under my direction and personally reviewed by me in its entirety. I confirm that the note above accurately reflects all work, treatment, procedures, and medical decision making performed by me.
[2019-04-19] MEDS ORDERED: GLUCAGON FOR INJ 1 MG VIAL IM PRN (04:45)
[2019-04-19] MEDS: INSULIN REGULAR 250 UNITS in SODIUM CHLORIDE 0.9% 247.5 ML IV SCH (04:55)
[2019-04-19] MEDS: HYDROCORTISONE 10 MG TAB PO SCH (04:56)
[2019-04-19] MEDS: cefTRIAXone SODIUM 1,000 MG in DEXTROSE 5% 50 ML IV SCH (04:56)
[2019-04-19 05:28] LABS: Base Excess ABG -20.1 mEq/L (-9-1.8); HCO3 ABG 5 mmol/L (19-24); Oxygen Saturation ABG 91.2 % (90-95); PCO2 ABG 12 mmHg (35-46); PO2 ABG 61 mm/Hg (80-95)
[2019-04-19 05:30] LABS: Allen Test Pos (Pos)
[2019-04-19] MEDS: AZITHROMYCIN 500 MG in DEXTROSE 5% 250 ML IV SCH (05:51)
[2019-04-19 05:59] LABS: Estimated Average Glucose 263 mg/dl; Hemoglobin A1C 10.8 % (4.5-5.6)
[2019-04-19] MEDS ORDERED: PENDING 1/2NSS+20mEq KCL IVF SCH (06:00)
[2019-04-19] MEDS ORDERED: PENDING D5 1/2NS+20mEq KCL IVF SCH (06:00)
[2019-04-19] MEDS: D5W AND 1/2NSS + 20MEQ KCL 20 MEQ/1,000 ML BAG IV SCH ×4 (06:25→22:25)
--- NOTE | 2019-04-19 06:30 | XRay Report ---
XR chest 1V portable HISTORY: 54 years-old Female Dyspnea acute shortness of breath COMPARISON: Chest radiographs 06/02/2016, CTA chest 04/19/2019 TECHNIQUE: Portable AP view of the chest FINDINGS: Cardiac silhouette is normal in size. There are patchy ill-defined bilateral opacities which are bett er appreciated on CTA chest of same day. No pneumothorax, pleural effusion or overt pulmonary edema. Mild degenerative changes of the shoulders and spine. IMPRESSION: Ill-defined patchy bilateral opacities, better appreciated on CTA chest of same day are s uggestive of a nonspecific infectious or inflammatory pneumonitis The above report was generated using voice recognition software. It may contain grammatical, syntax o r spelling errors. Electronically signed by: Oleksandr Pinon M.D. 04/19/2019 6:28 AM
--- NOTE | 2019-04-19 06:30 | CT Scan Report ---
CT angio chest PE protocol CT DOSE: HISTORY: Dyspnea. Cardiac arrhythmia. PE TECHNIQUE: Multiaxial CT images of the chest were performed following the intravenous administration of contrast to evaluate the pulmonary arteries. Maximal intensity projection images were also obtaine d. A dose lowering technique was utilized adhering to the principles of ALARA. COMPARISON STUDY: None. FINDINGS: This examination is negative for pulmonary embolus. Compromise evaluation of the tertiary l evel pulmonary vasculature due to patient body habitus and respiratory motion. Findings of a lateral parenchymal infiltrative change versus pulmonary edema. Hepatomegaly with diffuse fatty infiltration. Findings of nondisplaced fracture of the sternal manubr ium versus motion artifact. IMPRESSION: 1. Study is negative for pulmonary emboli. 2. Pulmonary edema versus diffuse bilateral parenchymal infiltrative change. 3. Hepatomegaly with components of fatty infiltration. 4. Motion artifact versus sternal manubrial fracture. The above report was generated using voice recognition software. It may contain grammatical, syntax or spelling errors. Electronically signed by: Mukund Sousa M.D. 04/19/2019 6:28 AM
--- NOTE | 2019-04-19 06:39 | CT Scan Report ---
CT head/brain wo con CLINICAL HISTORY: 54 years-old Female with altered ms. Acutely altered mental status TECHNIQUE: Multiple axial CT images of the head were obtained without contrast. A dose lowering tech nique was utilized adhering to the principles of ALARA. CT DOSE: 1417.39 mGy.cm COMPARISON: Head CT 05/26/2011. FINDINGS: Streak artifact from the patient's left-sided ear ring limits the exam. No acute intracranial hemorrh age, midline shift, intracranial mass, hydrocephalus, territorial ischemia or abnormal extra-axial co llection. The calvarium is intact. The paranasal sinuses, mastoid air cells, and middle ear cavities are clear . IMPRESSION: No acute intracranial abnormality. The above report was generated using voice recognition software. It may contain grammatical, syntax o r spelling errors. Electronically signed by: Oleksandr Pinon M.D. 04/19/2019 6:38 AM
[2019-04-19 07:01] LABS: Base Excess ABG -18.6 mEq/L (-9-1.8); HCO3 ABG 6 mmol/L (19-24); Oxygen Saturation ABG 99.5 % (90-95); PCO2 ABG 16 mmHg (35-46); PO2 ABG 212 mm/Hg (80-95); pH ABG 7.22 (7.35-7.45)
[2019-04-19 07:03] LABS: Allen Test Pos (Pos)
[2019-04-19] MEDS: LEVOTHYROXINE SODIUM 100 MCG TABLET PO SCH (07:03)
[2019-04-19 07:16] LABS: BUN Creatinine Ratio 16.4 (10-20); Calcium 8.8 mg/dl (8.5-10.1); Creatinine Clr Calc Pharmacy 79.1 ml/min; Est GFR (African American) 73.1; Est GFR (Non-African American) 63.1; Thyroid Stimulating Hormone 0.273 uIu/ml (0.300-4.500)
[2019-04-19 07:22] LABS: Potassium 4.3 mmol/L (3.5-5.1)
[2019-04-19] MEDS ORDERED: INSULIN ASPART 100 UNITS/ML 3 ML PEN SC SCH (07:30)
[2019-04-19 08:49] LABS: BUN Creatinine Ratio 15.2 (10-20); Calcium 8.8 mg/dl (8.5-10.1); Creatinine Clr Calc Pharmacy 79.8 ml/min; Est GFR (Non-African American) 63.8; Potassium 4.3 mmol/L (3.5-5.1)
[2019-04-19] MEDS ORDERED: ESCITALOPRAM OXALATE 10 MG TAB PO SCH ×2 (09:00)
[2019-04-19] MEDS: INSULIN ASPART 100 UNITS/ML 3 ML PEN SC SCH ×4 (09:04→21:03)
[2019-04-19] MEDS: BusPIRone 15 MG TAB PO SCH (09:04)
[2019-04-19] MEDS: GABAPENTIN 800 MG TAB PO SCH (09:04)
[2019-04-19 09:18] LABS: Appearance Urine Clear (Clear); Blood Urine 2+ (Negative); Color Urine Yellow; Glucose Urine UA 2+ (Negative); Leukocyte Esterase Urine Negative (Negative); Nitrite Urine Negative (Negative); Protein Urine 1+ (Negative); Specific Gravity Urine >= 1.030 (1.000-1.030); Urobilinogen Urine Negative (Negative); pH Urine 5.5 (4.5-7.5)
[2019-04-19 09:21] LABS: Bilirubin Urine Negative (Negative); Ictotest Urine Negative (Negative)
[2019-04-19 09:23] LABS: Ketones Urine 3+ (Negative)
--- NOTE | 2019-04-19 09:37 | Hospitalist Progress Note ---
Date of Service April 19, 2019 Results & Data Vital Signs (Past 12 Hours) Vital Signs Temp Pulse Pulse Resp BP BP Pulse Ox 04/19/19 07:30 112 H 38 H 100 04/19/19 07:01 113 H 39 H 100 04/19/19 07:00 113 H 40 H 159/93 H 100 04/19/19 06:16 111 H 43 H 100 04/19/19 06:00 109 H 29 H 144/88 H 90 04/19/19 05:31 115 H 38 H 131/86 04/19/19 05:00 108 H 45 H 04/19/19 04:54 36.5 C 111 H 28 H 135/82 92 04/19/19 04:01 110 H 36 H 04/19/19 04:00 110 H 40 H 132/81 04/19/19 03:30 111 H 30 H 146/86 H 93 04/19/19 03:12 111 H 30 H 147/86 H 93 04/19/19 02:37 105 H 34 H 134/84 94 04/19/19 01:20 104 H 35 H 95 04/19/19 01:11 36.7 C 108 H 42 H 95 04/19/19 01:10 107 H 40 H 96 04/19/19 01:09 108 H 36 H 153/105 H 95 04/19/19 01:08 107 H 37 H 95 04/19/19 01:07 108 H 38 H 153/105 H 95 04/19/19 00:51 98 H 36 H 146/100 H 96 04/19/19 00:42 110 H 30 H 149/89 H 94 04/19/19 00:40 111 H 34 H 94 04/19/19 00:34 111 H 32 H 93 04/19/19 00:28 105/68 04/19/19 00:20 108 H 25 H 04/19/19 00:10 106 H 35 H 04/19/19 00:00 107 H 34 H 04/18/19 23:50 109 H 40 H 94 04/18/19 23:47 109 H 43 H 144/109 H 95 04/18/19 23:40 111 H 36 H 95 04/18/19 23:35 113 H 43 H 127/100 95 04/18/19 23:30 117 H 40 H 04/18/19 23:24 119 H 34 H 04/18/19 23:23 118 H 90/80 L 04/18/19 23:12 79 32 H 90/80 L 99
[2019-04-19 10:01] LABS: Bacteria Urine Negative (Negative); Epithelial Cell Urine 0-5 /lpf (0-5); Mucus Urine Present (None Prsent); RBC Urine 0-4 /hpf (0-4); WBC Urine 0-5 /hpf (0-5)
[2019-04-19] MEDS ORDERED: SODIUM BICARB 8.4% INJ 50 MEQ/50 ML SYR IV STA (10:14)
[2019-04-19 10:16] LABS: Amphetamines+Metham, Urine Neg (Neg); Barbiturates, Urine Neg (Neg); Benzodiazepine, Urine Neg (Neg); Cocaine, Urine Neg (Neg); MDMA (Ecstacy), Urine Neg (Neg); Methadone, Urine Neg (Neg); Opiate, Urine Pos (Neg); Phencyclidine, Urine Neg (Neg)
--- NOTE | 2019-04-19 11:13 | Critical Care Consultation ---
Date of Consultation April 19, 2019 Assessment & Plan (1) DKA (diabetic ketoacidoses): 54-year-old female was admitted on April 19, 2019 for SOB, coordination issues, and elevated glucose. 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 Increased fatigue in past [address] head non-acute. PMH trigeminal neuralgia and anxiety. Holding home (scheduled) amitriptyline, BuSpar, gabapentin and (prn) Xanax, oxycodone (reportedly 15 mg per day), Ambien. For now, ordered dilaudid 0.4 mg q4h prn. UDS pending. Pulm: No known underlying issues. Tachypneic here. CT chest concerning for edema vs bilateral infiltrate (though not convinced this is CAP). See ID below. On minimal NC oxygen. CVS: PMH HTN. Admit EKG sinus tach and LAFB. - Will give single round bicarb in case she actually has prolonged QTc. Recheck EKG. ID: Afebrile (though will check core temp). WBC 22, lactate 1.6, procalcitonin 0.4. BCx and UCx pending. Concern for pneumonia on imaging. 19Nov began ceftriaxone and azithromycin. - Will check expectorated sputum (though s/p abx start) and influenza swab. Endo: - PMH diabetes (admit HbA1c 10.8). At home is on empagliflozin and metformin. On arrival, glucose 383 and AG 20. B-HB 70s. In ED, given NS IVF boluses and started on insulin drip. Unclear cause of this DKA, looking for sources, though empagliflozin can do this (so will list as an allergy). --- Continue insulin drip this AM. Goal glucose 150-250 range. Monitoring anion gap. - PMH adrenal insufficiency (unclear cause). Patient recently increased hydrocortisone to 50 mg (from baseline 40 mg). In hospital, on 80 mg q am initially. - PMH hypothyroid, at home on levothyroxine. Admit TSH 0.27. Checking Free T4. Renal/Lytes: Initial Cr 1.7, quickly resolved to 1.01 after IVF. Held home spironolactone. GI: Presently NPO. No known underlying issues. Admit LFTs mildly elevated. Hepatomegaly seen on CT chest. - Ordered RUQ u/s, Tylenol level, hepatitis panel. Heme: Admit Hb 18.9 (suggests concentrated) and MCV 106. Vit B12 level normal. DVT prophy: Lovenox 40 q day and SCDs. Skin: No acute issues. Lines: PIV. Code status: Full code. PT/OT: Deferred on admit. Disposition: Admitted to ICU. Critically ill. (2) Anxiety: (3) Hypertension: (4) LAFB (left anterior fascicular block): (5) CAP (community acquired pneumonia): (6) Diabetes: (7) Adrenal insufficiency: (8) Trigeminal neuralgia: (9) Hypothyroidism: (10) Elevated LFTs: Supervising Physician Co-Signing Physician Notes Dr. Al was resident physician during care of patient. I separately evaluated patient for franklin portions of the history and the exam. I was present during the critical portion of medical decision making, and I discussed the case with the resident. I generally agree with the findings and plan. Continued ICU infusion, 1 ampoule 50 M EQ's bicarb, encephalopathy likely secondary to metabolic derangements. Patient was also discussed on multidisciplinary rounds. I have personally spent 40 minutes of critical care time in the direct management of this patient. This is a life/limb threatening event. This includes time spent evaluating patient, direct bedside care, chart review, placing orders, interpretation of diagnostic studies, discussion with consultants, patient, and/or family members regarding treatment decisions, as well as other required patient management activities. This time is exclusive of all separately billable procedures, and teaching time and separate from and in addition to any other critical care service time. History of Present Illness Reason for Consultation: DKA, hypoxic RF Attending Physician: Carolyn Barraza MD History of Present Illness 54-year-old female says that for the past two or so days she has had increased shortness of breath as well as some feeling of poor coordination. Multiple concurrent symptoms to include chills, headache, dry cough and dry mouth, and mild nausea (? concurrent vomiting). No known fevers. She was diagnosed with adrenal insufficiency back in the summertime. During this past couple days she increased her hydrocortisone dose from standard 40 mill grams per day up to 50 mg/day. She says she recently started Jardiance due to blood sugars in the 300s. At the time of this consult on Apr 19 in AM, patient denies any focal pains but does feel short of breath. Also says her mouth is very dry. Her primary concern is being able to take her home medications to include oxycodone 15 mg/day. Allergies Allergy/AdvReac Type Severity Reaction Status Date / Time empagliflozin AdvReac Severe DKA Verified 04/20/19 00:01 Home Medications Home Medications Medication Instructions Recorded Confirmed Type alprazolam 0.5 mg PO DAILY PRN 04/19/19 04/19/19 History amitriptyline 25 mg PO HS 04/19/19 04/19/19 History amitriptyline 100 mg PO HS 04/19/19 04/19/19 History buspirone 15 mg PO BID 04/19/19 04/19/19 History empagliflozin [Jardiance] 10 mg PO DAILY 04/19/19 04/19/19 History escitalopram oxalate 10 mg PO DAILY 04/19/19 04/19/19 History gabapentin 800 mg PO QID 04/19/19 04/19/19 History hydrocortisone 10 mg PO DIRECTED 04/19/19 04/19/19 History levothyroxine [Synthroid] 100 mcg PO DAILY 04/19/19 04/19/19 History metformin 500 mg PO BID 04/19/19 04/19/19 History oxycodone See Rx Instructions .ROUTE 04/19/19 04/19/19 History .COMPLEX PRN spironolactone 100 mg PO DAILY 04/19/19 04/19/19 History zolpidem [Ambien] 10 mg PO HS PRN 04/19/19 04/19/19 History Patient History Medical History Adrenal insufficiency Diabetes Trigeminal neuralgia Family History Other No significant family history Social History Preferred Language: Maldivian Communication Ability: Effective Lamination Builder Required: No Beliefs That Will Affect Care: None Current Living Situation: Alone current occupational status: employed Other Information That Helps Us Care for You: No Feels Safe at Home: Yes Safety Concerns: Feels Safe At This Time Smoking Status: Unknown if ever smoked Hx Alcohol Use: No Hx Substance Use: No Review of Systems Review of Systems: Constitutional: Denies fevers. Questionable chills. No focal weakness. Eyes: Denies any visual loss or diplopia ENT: Denies any ear/nose/throat pain or difficulty speaking or swallowing Respiratory: Positive cough and dyspnea. Denies hemoptysis. Cardiovascular: Denies any chest pain or feeling of edema Gastrointestinal: Denies any abdominal pain. Positive nausea, questionable vomiting, denies diarrhea. Musculoskeletal: Denies any acute extremity pains, myalgias, or focal weakness Skin: Denies any known acute rashes or lesions Neuro: Positive for mild headache. Denies focal weakness or numbness or difficulties with speech/swallow. Endocrine: Positive underlying adrenal insufficiency. Hematologic: Denies any easy bleeding or bruising Physical Exam Physical Exam: General Appearance: Awake, alert & oriented, tachypneic but does not appear in physical distress. Mouth: Dry oral mucous membranes. Poor dentition. CV: +S1S2 regular tachycardia, no murmur. Pulm: Tachypnea in 30s. Clear to auscultation throughout. Abdomen: +BS, soft, non-tender, non-distended. Extremities: No pedal edema or calf tenderness. Moving all extremities naturally and easily. Neuro: No gross neuro deficits. No extremity resting or intention tremor. Lines: PIV. Results & Data Vital Signs (Past 12 Hours) Vital Signs Temp Pulse Pulse Resp BP BP Pulse Ox 04/19/19 10:10 113 H 38 H 92 04/19/19 10:01 118 H 21 91 04/19/19 10:00 117 H 39 H 153/76 H 91 04/19/19 09:50 114 H 38 H 93 04/19/19 09:40 112 H 30 H 93 04/19/19 09:30 109 H 18 94 04/19/19 09:20 110 H 43 H 94 04/19/19 09:10 111 H 42 H 93 04/19/19 09:02 111 H 47 H 94 04/19/19 09:00 112 H 49 H 94 04/19/19 08:00 37.0 C 111 H 39 H 154/95 H 98 04/19/19 07:30 112 H 38 H 100 04/19/19 07:01 113 H 39 H 100 04/19/19 07:00 113 H 40 H 159/93 H 100 04/19/19 06:16 111 H 43 H 100 04/19/19 06:00 109 H 29 H 144/88 H 90 04/19/19 05:31 115 H 38 H 131/86 04/19/19 05:00 108 H 45 H 04/19/19 04:54 36.5 C 111 H 28 H 135/82 92 04/19/19 04:01 110 H 36 H 04/19/19 04:00 110 H 40 H 132/81 04/19/19 03:30 111 H 30 H 146/86 H 93 04/19/19 03:12 111 H 30 H 147/86 H 93 04/19/19 02:37 105 H 34 H 134/84 94 04/19/19 01:20 104 H 35 H 95 04/19/19 01:11 36.7 C 108 H 42 H 95 04/19/19 01:10 107 H 40 H 96 04/19/19 01:09 108 H 36 H 153/105 H 95 04/19/19 01:08 107 H 37 H 95 04/19/19 01:07 108 H 38 H 153/105 H 95 04/19/19 00:51 98 H 36 H 146/100 H 96 04/19/19 00:42 110 H 30 H 149/89 H 94 04/19/19 00:40 111 H 34 H 94 04/19/19 00:34 111 H 32 H 93 04/19/19 00:28 105/68 04/19/19 00:20 108 H 25 H 04/19/19 00:10 106 H 35 H 04/19/19 00:00 107 H 34 H 04/18/19 23:50 109 H 40 H 94 04/18/19 23:47 109 H 43 H 144/109 H 95 04/18/19 23:40 111 H 36 H 95 04/18/19 23:35 113 H 43 H 127/100 95 04/18/19 23:30 117 H 40 H 04/18/19 23:24 119 H 34 H 04/18/19 23:23 118 H 90/80 L 04/18/19 23:12 79 32 H 90/80 L 99 Laboratory Results 04/19/19 04/19/19 04/19/19 Range/Units Unknown 10:48 09:34 WBC (4.8-10.8) K/uL RBC (4.2-5.4) M/uL Hgb (12.0-16.0) g/dL Hct (37-47) % MCV (80-100) fL MCH (25-34) pg MCHC (32-36) g/dL RDW Std Deviation (36.4-46.3) fL RDW Coeff of Juan (11.5-14.5) % Plt Count (130-400) K/uL MPV (7.4-10.4) fL Immature Gran % (Auto) % Neut % (Auto) % Lymph % (Auto) % Gray % (Auto) % Eos % (Auto) % Baso % (Auto) % Immature Gran # (Auto) (0.00-0.02) K/uL Neut # (Auto) (1.4-6.5) K/uL Lymph # (Auto) (1.2-3.4) K/uL Gray # (Auto) (0.11-0.59) K/uL Eos # (Auto) (0-0.5) K/uL Baso # (Auto) (0-0.2) K/uL PT (9.0-12.0) Seconds INR (0.9-1.1) APTT (21.0-31.0) Seconds PTT Ratio ABG pH (7.35-7.45) ABG pCO2 (35-46) mmHg ABG pO2 (80-95) mm/Hg ABG HCO3 (19-24) mmol/L ABG O2 Saturation (90-95) % ABG Base Excess (-9-1.8) mEq/L Mil Test (Pos) Barometric Pressure mm/Hg Oxygen Given Sodium (136-145) mmol/L Potassium (3.5-5.1) mmol/L Chloride (98-107) mmol/L Carbon Dioxide (21-32) mmol/L Anion Gap (3-11) BUN (7-18) mg/dl Creatinine (0.6-1.2) mg/dl Est Cr Clr Drug Dosing ml/min Est GFR ( Amer) Est GFR (Non-Af Amer) BUN/Creatinine Ratio (10-20) Glucose (70-99) mg/dl POC Glucose 245 H 217 H (70-99) Estimat Average Glucose mg/dl Hemoglobin A1c (4.5-5.6) % Osmolality (280-300) mOsm/kg Lactate (0.4-2.0) mmol/L Calcium (8.5-10.1) mg/dl Phosphorus (2.5-4.9) mg/dl Magnesium (1.8-2.4) mg/dl Total Bilirubin (0.2-1) mg/dl AST (15-37) U/L ALT (12-78) U/L Alkaline Phosphatase (45-117) U/L Total Protein (6.4-8.2) gm/dl Albumin (3.4-5.0) gm/dl Globulin (2.5-4.0) gm/dl Albumin/Globulin Ratio (0.9-2) Vitamin B12 Beta-Hydroxybutyric Acd (0.2-2.81) mg/dl Procalcitonin (0-0.5) ng/ml TSH Urine Color Urine Appearance (Clear) Urine pH (4.5-7.5) Ur Specific [place] (1.000-1.030) Urine Protein (Negative) Urine Glucose (UA) (Negative) Urine Ketones (Negative) Urine Blood (Negative) Urine Nitrite (Negative) Urine Bilirubin (Negative) Urine Urobilinogen (Negative) Ur Leukocyte Esterase (Negative) Urine RBC (0-4) /hpf Urine WBC (0-5) /hpf Ur Epithelial Cells (0-5) /lpf Urine Bacteria (Negative) Hyaline Casts (0-5) /lpf Granular Casts (0) /lpf Urine Mucus (None Prsent) Urine Osmolality (500-800) mOsm/kg Nasal Screen MRSA (PCR) Negative (Negative) Salicylates (2.8-20) mg/dl Urine Opiates Screen (Neg) U Codeine Confrm GC/MS Ur Morphine (GC/MS) Ur Hydrocodone (GC/MS) Ur Norhydrocodone Ur Noroxycodone Urine Oxycodone (GC/MS) U Oxymorphone GC/MS Ur Methadone, Qual (Neg) Ur Hydromorphone (GC/MS) Urine Barbiturates (Neg) Ur Phencyclidine (PCP) (Neg) U Amphetamin/Meth Scrn (Neg) MDMA (Ecstasy) Screen (Neg) U Benzodiazepines Scrn (Neg) Ur Cocaine Metabolite (Neg) U Marijuana (THC) Screen (Neg) 04/19/19 04/19/19 04/19/19 Range/Units 08:50 08:50 08:50 WBC (4.8-10.8) K/uL RBC (4.2-5.4) M/uL Hgb (12.0-16.0) g/dL Hct (37-47) % MCV (80-100) fL MCH (25-34) pg MCHC (32-36) g/dL RDW Std Deviation (36.4-46.3) fL RDW Coeff of Juan (11.5-14.5) % Plt Count (130-400) K/uL MPV (7.4-10.4) fL Immature Gran % (Auto) % Neut % (Auto) % Lymph % (Auto) % Gray % (Auto) % Eos % (Auto) % Baso % (Auto) % Immature Gran # (Auto) (0.00-0.02) K/uL Neut # (Auto) (1.4-6.5) K/uL Lymph # (Auto) (1.2-3.4) K/uL Gray # (Auto) (0.11-0.59) K/uL Eos # (Auto) (0-0.5) K/uL Baso # (Auto) (0-0.2) K/uL PT (9.0-12.0) Seconds INR (0.9-1.1) APTT (21.0-31.0) Seconds PTT Ratio ABG pH (7.35-7.45) ABG pCO2 (35-46) mmHg ABG pO2 (80-95) mm/Hg ABG HCO3 (19-24) mmol/L ABG O2 Saturation (90-95) % ABG Base Excess (-9-1.8) mEq/L Mil Test (Pos) Barometric Pressure mm/Hg Oxygen Given Sodium (136-145) mmol/L Potassium (3.5-5.1) mmol/L Chloride (98-107) mmol/L Carbon Dioxide (21-32) mmol/L Anion Gap (3-11) BUN (7-18) mg/dl Creatinine (0.6-1.2) mg/dl Est Cr Clr Drug Dosing ml/min Est GFR ( Amer) Est GFR (Non-Af Amer) BUN/Creatinine Ratio (10-20) Glucose (70-99) mg/dl POC Glucose (70-99) Estimat Average Glucose mg/dl Hemoglobin A1c (4.5-5.6) % Osmolality (280-300) mOsm/kg Lactate (0.4-2.0) mmol/L Calcium (8.5-10.1) mg/dl Phosphorus (2.5-4.9) mg/dl Magnesium (1.8-2.4) mg/dl Total Bilirubin (0.2-1) mg/dl AST (15-37) U/L ALT (12-78) U/L Alkaline Phosphatase (45-117) U/L Total Protein (6.4-8.2) gm/dl Albumin (3.4-5.0) gm/dl Globulin (2.5-4.0) gm/dl Albumin/Globulin Ratio (0.9-2) Vitamin B12 Beta-Hydroxybutyric Acd (0.2-2.81) mg/dl Procalcitonin (0-0.5) ng/ml TSH Urine Color Urine Appearance (Clear) Urine pH (4.5-7.5) Ur Specific [place] (1.000-1.030) Urine Protein (Negative) Urine Glucose (UA) (Negative) Urine Ketones (Negative) Urine Blood (Negative) Urine Nitrite (Negative) Urine Bilirubin (Negative) Urine Urobilinogen (Negative) Ur Leukocyte Esterase (Negative) Urine RBC (0-4) /hpf Urine WBC (0-5) /hpf Ur Epithelial Cells (0-5) /lpf Urine Bacteria (Negative) Hyaline Casts (0-5) /lpf Granular Casts (0) /lpf Urine Mucus (None Prsent) Urine Osmolality 718 (500-800) mOsm/kg Nasal Screen MRSA (PCR) (Negative) Salicylates (2.8-20) mg/dl Urine Opiates Screen Pos H (Neg) U Codeine Confrm GC/MS Pending Ur Morphine (GC/MS) Pending Ur Hydrocodone (GC/MS) Pending Ur Norhydrocodone Pending Ur Noroxycodone Pending Urine Oxycodone (GC/MS) Pending U Oxymorphone GC/MS Pending Ur Methadone, Qual Neg (Neg) Ur Hydromorphone (GC/MS) Pending Urine Barbiturates Neg (Neg) Ur Phencyclidine (PCP) Neg (Neg) U Amphetamin/Meth Scrn Neg (Neg) MDMA (Ecstasy) Screen Neg (Neg) U Benzodiazepines Scrn Neg (Neg) Ur Cocaine Metabolite Neg (Neg) U Marijuana (THC) Screen Neg (Neg) 04/19/19 04/19/19 04/19/19 Range/Units 08:50 08:29 07:59 WBC (4.8-10.8) K/uL RBC (4.2-5.4) M/uL Hgb (12.0-16.0) g/dL Hct (37-47) % MCV (80-100) fL MCH (25-34) pg MCHC (32-36) g/dL RDW Std Deviation (36.4-46.3) fL RDW Coeff of Juan (11.5-14.5) % Plt Count (130-400) K/uL MPV (7.4-10.4) fL Immature Gran % (Auto) % Neut % (Auto) % Lymph % (Auto) % Gray % (Auto) % Eos % (Auto) % Baso % (Auto) % Immature Gran # (Auto) (0.00-0.02) K/uL Neut # (Auto) (1.4-6.5) K/uL Lymph # (Auto) (1.2-3.4) K/uL Gray # (Auto) (0.11-0.59) K/uL Eos # (Auto) (0-0.5) K/uL Baso # (Auto) (0-0.2) K/uL PT (9.0-12.0) Seconds INR (0.9-1.1) APTT (21.0-31.0) Seconds PTT Ratio ABG pH (7.35-7.45) ABG pCO2 (35-46) mmHg ABG pO2 (80-95) mm/Hg ABG HCO3 (19-24) mmol/L ABG O2 Saturation (90-95) % ABG Base Excess (-9-1.8) mEq/L Mil Test (Pos) Barometric Pressure mm/Hg Oxygen Given Sodium (136-145) mmol/L Potassium (3.5-5.1) mmol/L Chloride (98-107) mmol/L Carbon Dioxide (21-32) mmol/L Anion Gap (3-11) BUN (7-18) mg/dl Creatinine (0.6-1.2) mg/dl Est Cr Clr Drug Dosing ml/min Est GFR ( Amer) Est GFR (Non-Af Amer) BUN/Creatinine Ratio (10-20) Glucose (70-99) mg/dl POC Glucose 232 H (70-99) Estimat Average Glucose mg/dl Hemoglobin A1c (4.5-5.6) % Osmolality (280-300) mOsm/kg Lactate (0.4-2.0) mmol/L Calcium (8.5-10.1) mg/dl Phosphorus (2.5-4.9) mg/dl Magnesium (1.8-2.4) mg/dl Total Bilirubin (0.2-1) mg/dl AST (15-37) U/L ALT (12-78) U/L Alkaline Phosphatase (45-117) U/L Total Protein (6.4-8.2) gm/dl Albumin (3.4-5.0) gm/dl Globulin (2.5-4.0) gm/dl Albumin/Globulin Ratio (0.9-2) Vitamin B12 > 2000 H Beta-Hydroxybutyric Acd (0.2-2.81) mg/dl Procalcitonin (0-0.5) ng/ml TSH Urine Color Yellow Urine Appearance Clear (Clear) Urine pH 5.5 (4.5-7.5) Ur Specific [place] >= 1.030 (1.000-1.030) Urine Protein 1+ H (Negative) Urine Glucose (UA) 2+ H (Negative) Urine Ketones 3+ H (Negative) Urine Blood 2+ H (Negative) Urine Nitrite Negative (Negative) Urine Bilirubin Negative (Negative) Urine Urobilinogen Negative (Negative) Ur Leukocyte Esterase Negative (Negative) Urine RBC 0-4 (0-4) /hpf Urine WBC 0-5 (0-5) /hpf Ur Epithelial Cells 0-5 (0-5) /lpf Urine Bacteria Negative (Negative) Hyaline Casts (0-5) /lpf Granular Casts 5-10 H (0) /lpf Urine Mucus Present A (None Prsent) Urine Osmolality (500-800) mOsm/kg Nasal Screen MRSA (PCR) (Negative) Salicylates (2.8-20) mg/dl Urine Opiates Screen (Neg) U Codeine Confrm GC/MS Ur Morphine (GC/MS) Ur Hydrocodone (GC/MS) Ur Norhydrocodone Ur Noroxycodone Urine Oxycodone (GC/MS) U Oxymorphone GC/MS Ur Methadone, Qual (Neg) Ur Hydromorphone (GC/MS) Urine Barbiturates (Neg) Ur Phencyclidine (PCP) (Neg) U Amphetamin/Meth Scrn (Neg) MDMA (Ecstasy) Screen (Neg) U Benzodiazepines Scrn (Neg) Ur Cocaine Metabolite (Neg) U Marijuana (THC) Screen (Neg) 04/19/19 04/19/19 04/19/19 Range/Units 07:59 07:23 06:43 WBC (4.8-10.8) K/uL RBC (4.2-5.4) M/uL Hgb (12.0-16.0) g/dL Hct (37-47) % MCV (80-100) fL MCH (25-34) pg MCHC (32-36) g/dL RDW Std Deviation (36.4-46.3) fL RDW Coeff of Juan (11.5-14.5) % Plt Count (130-400) K/uL MPV (7.4-10.4) fL Immature Gran % (Auto) % Neut % (Auto) % Lymph % (Auto) % Gray % (Auto) % Eos % (Auto) % Baso % (Auto) % Immature Gran # (Auto) (0.00-0.02) K/uL Neut # (Auto) (1.4-6.5) K/uL Lymph # (Auto) (1.2-3.4) K/uL Gray # (Auto) (0.11-0.59) K/uL Eos # (Auto) (0-0.5) K/uL Baso # (Auto) (0-0.2) K/uL PT (9.0-12.0) Seconds INR (0.9-1.1) APTT (21.0-31.0) Seconds PTT Ratio ABG pH 7.22 L (7.35-7.45) ABG pCO2 16 L (35-46) mmHg ABG pO2 212 H (80-95) mm/Hg ABG HCO3 6 L (19-24) mmol/L ABG O2 Saturation 99.5 H (90-95) % ABG Base Excess -18.6 L (-9-1.8) mEq/L Mil Test Pos (Pos) Barometric Pressure 725.7 mm/Hg Oxygen Given 50% FIO2 Sodium 134 L (136-145) mmol/L Potassium 4.3 (3.5-5.1) mmol/L Chloride 108 H (98-107) mmol/L Carbon Dioxide 8 L* (21-32) mmol/L Anion Gap 18.0 H (3-11) BUN 15 (7-18) mg/dl Creatinine 1.00 (0.6-1.2) mg/dl Est Cr Clr Drug Dosing 79.8 ml/min Est GFR ( Amer) 74.0 Est GFR (Non-Af Amer) 63.8 BUN/Creatinine Ratio 15.2 (10-20) Glucose 241 H (70-99) mg/dl POC Glucose 270 H (70-99) Estimat Average Glucose mg/dl Hemoglobin A1c (4.5-5.6) % Osmolality (280-300) mOsm/kg Lactate (0.4-2.0) mmol/L Calcium 8.8 (8.5-10.1) mg/dl Phosphorus (2.5-4.9) mg/dl Magnesium (1.8-2.4) mg/dl Total Bilirubin (0.2-1) mg/dl AST (15-37) U/L ALT (12-78) U/L Alkaline Phosphatase (45-117) U/L Total Protein (6.4-8.2) gm/dl Albumin (3.4-5.0) gm/dl Globulin (2.5-4.0) gm/dl Albumin/Globulin Ratio (0.9-2) Vitamin B12 Beta-Hydroxybutyric Acd (0.2-2.81) mg/dl Procalcitonin (0-0.5) ng/ml TSH Urine Color Urine Appearance (Clear) Urine pH (4.5-7.5) Ur Specific [place] (1.000-1.030) Urine Protein (Negative) Urine Glucose (UA) (Negative) Urine Ketones (Negative) Urine Blood (Negative) Urine Nitrite (Negative) Urine Bilirubin (Negative) Urine Urobilinogen (Negative) Ur Leukocyte Esterase (Negative) Urine RBC (0-4) /hpf Urine WBC (0-5) /hpf Ur Epithelial Cells (0-5) /lpf Urine Bacteria (Negative) Hyaline Casts (0-5) /lpf Granular Casts (0) /lpf Urine Mucus (None Prsent) Urine Osmolality (500-800) mOsm/kg Nasal Screen MRSA (PCR) (Negative) Salicylates (2.8-20) mg/dl Urine Opiates Screen (Neg) U Codeine Confrm GC/MS Ur Morphine (GC/MS) Ur Hydrocodone (GC/MS) Ur Norhydrocodone Ur Noroxycodone Urine Oxycodone (GC/MS) U Oxymorphone GC/MS Ur Methadone, Qual (Neg) Ur Hydromorphone (GC/MS) Urine Barbiturates (Neg) Ur Phencyclidine (PCP) (Neg) U Amphetamin/Meth Scrn (Neg) MDMA (Ecstasy) Screen (Neg) U Benzodiazepines Scrn (Neg) Ur Cocaine Metabolite (Neg) U Marijuana (THC) Screen (Neg) 04/19/19 04/19/19 04/19/19 Range/Units 06:29 06:29 06:06 WBC (4.8-10.8) K/uL RBC (4.2-5.4) M/uL Hgb (12.0-16.0) g/dL Hct (37-47) % MCV (80-100) fL MCH (25-34) pg MCHC (32-36) g/dL RDW Std Deviation (36.4-46.3) fL RDW Coeff of Juan (11.5-14.5) % Plt Count (130-400) K/uL MPV (7.4-10.4) fL Immature Gran % (Auto) % Neut % (Auto) % Lymph % (Auto) % Gray % (Auto) % Eos % (Auto) % Baso % (Auto) % Immature Gran # (Auto) (0.00-0.02) K/uL Neut # (Auto) (1.4-6.5) K/uL Lymph # (Auto) (1.2-3.4) K/uL Gray # (Auto) (0.11-0.59) K/uL Eos # (Auto) (0-0.5) K/uL Baso # (Auto) (0-0.2) K/uL PT (9.0-12.0) Seconds INR (0.9-1.1) APTT (21.0-31.0) Seconds PTT Ratio ABG pH (7.35-7.45) ABG pCO2 (35-46) mmHg ABG pO2 (80-95) mm/Hg ABG HCO3 (19-24) mmol/L ABG O2 Saturation (90-95) % ABG Base Excess (-9-1.8) mEq/L Mil Test (Pos) Barometric Pressure mm/Hg Oxygen Given Sodium (136-145) mmol/L Potassium (3.5-5.1) mmol/L Chloride (98-107) mmol/L Carbon Dioxide (21-32) mmol/L Anion Gap (3-11) BUN (7-18) mg/dl Creatinine (0.6-1.2) mg/dl Est Cr Clr Drug Dosing ml/min Est GFR ( Amer) Est GFR (Non-Af Amer) BUN/Creatinine Ratio (10-20) Glucose (70-99) mg/dl POC Glucose (70-99) Estimat Average Glucose mg/dl Hemoglobin A1c (4.5-5.6) % Osmolality 294 (280-300) mOsm/kg Lactate (0.4-2.0) mmol/L Calcium (8.5-10.1) mg/dl Phosphorus (2.5-4.9) mg/dl Magnesium (1.8-2.4) mg/dl Total Bilirubin (0.2-1) mg/dl AST (15-37) U/L ALT (12-78) U/L Alkaline Phosphatase (45-117) U/L Total Protein (6.4-8.2) gm/dl Albumin (3.4-5.0) gm/dl Globulin (2.5-4.0) gm/dl Albumin/Globulin Ratio (0.9-2) Vitamin B12 Cancelled Beta-Hydroxybutyric Acd (0.2-2.81) mg/dl Procalcitonin (0-0.5) ng/ml TSH Urine Color Urine Appearance (Clear) Urine pH (4.5-7.5) Ur Specific [place] (1.000-1.030) Urine Protein (Negative) Urine Glucose (UA) (Negative) Urine Ketones (Negative) Urine Blood (Negative) Urine Nitrite (Negative) Urine Bilirubin (Negative) Urine Urobilinogen (Negative) Ur Leukocyte Esterase (Negative) Urine RBC (0-4) /hpf Urine WBC (0-5) /hpf Ur Epithelial Cells (0-5) /lpf Urine Bacteria (Negative) Hyaline Casts (0-5) /lpf Granular Casts (0) /lpf Urine Mucus (None Prsent) Urine Osmolality (500-800) mOsm/kg Nasal Screen MRSA (PCR) (Negative) Salicylates 8.4 (2.8-20) mg/dl Urine Opiates Screen (Neg) U Codeine Confrm GC/MS Ur Morphine (GC/MS) Ur Hydrocodone (GC/MS) Ur Norhydrocodone Ur Noroxycodone Urine Oxycodone (GC/MS) U Oxymorphone GC/MS Ur Methadone, Qual (Neg) Ur Hydromorphone (GC/MS) Urine Barbiturates (Neg) Ur Phencyclidine (PCP) (Neg) U Amphetamin/Meth Scrn (Neg) MDMA (Ecstasy) Screen (Neg) U Benzodiazepines Scrn (Neg) Ur Cocaine Metabolite (Neg) U Marijuana (THC) Screen (Neg) 04/19/19 04/19/19 04/19/19 Range/Units 06:06 05:52 05:01 WBC (4.8-10.8) K/uL RBC (4.2-5.4) M/uL Hgb (12.0-16.0) g/dL Hct (37-47) % MCV (80-100) fL MCH (25-34) pg MCHC (32-36) g/dL RDW Std Deviation (36.4-46.3) fL RDW Coeff of Juan (11.5-14.5) % Plt Count (130-400) K/uL MPV (7.4-10.4) fL Immature Gran % (Auto) % Neut % (Auto) % Lymph % (Auto) % Gray % (Auto) % Eos % (Auto) % Baso % (Auto) % Immature Gran # (Auto) (0.00-0.02) K/uL Neut # (Auto) (1.4-6.5) K/uL Lymph # (Auto) (1.2-3.4) K/uL Gray # (Auto) (0.11-0.59) K/uL Eos # (Auto) (0-0.5) K/uL Baso # (Auto) (0-0.2) K/uL PT (9.0-12.0) Seconds INR (0.9-1.1) APTT (21.0-31.0) Seconds PTT Ratio ABG pH 7.20 L (7.35-7.45) ABG pCO2 12 L (35-46) mmHg ABG pO2 61 L (80-95) mm/Hg ABG HCO3 5 L (19-24) mmol/L ABG O2 Saturation 91.2 (90-95) % ABG Base Excess -20.1 L (-9-1.8) mEq/L Mil Test Pos (Pos) Barometric Pressure 725.6 mm/Hg Oxygen Given Room Air Sodium 136 (136-145) mmol/L Potassium 4.3 (3.5-5.1) mmol/L Chloride 110 H (98-107) mmol/L Carbon Dioxide 5 L* (21-32) mmol/L Anion Gap 21.0 H (3-11) BUN 17 (7-18) mg/dl Creatinine 1.01 (0.6-1.2) mg/dl Est Cr Clr Drug Dosing 79.1 ml/min Est GFR ( Amer) 73.1 Est GFR (Non-Af Amer) 63.1 BUN/Creatinine Ratio 16.4 (10-20) Glucose 181 H (70-99) mg/dl POC Glucose 198 H (70-99) Estimat Average Glucose mg/dl Hemoglobin A1c (4.5-5.6) % Osmolality (280-300) mOsm/kg Lactate (0.4-2.0) mmol/L Calcium 8.8 (8.5-10.1) mg/dl Phosphorus (2.5-4.9) mg/dl Magnesium (1.8-2.4) mg/dl Total Bilirubin (0.2-1) mg/dl AST (15-37) U/L ALT (12-78) U/L Alkaline Phosphatase (45-117) U/L Total Protein (6.4-8.2) gm/dl Albumin (3.4-5.0) gm/dl Globulin (2.5-4.0) gm/dl Albumin/Globulin Ratio (0.9-2) Vitamin B12 Beta-Hydroxybutyric Acd (0.2-2.81) mg/dl Procalcitonin (0-0.5) ng/ml TSH 0.273 L Urine Color Urine Appearance (Clear) Urine pH (4.5-7.5) Ur Specific [place] (1.000-1.030) Urine Protein (Negative) Urine Glucose (UA) (Negative) Urine Ketones (Negative) Urine Blood (Negative) Urine Nitrite (Negative) Urine Bilirubin (Negative) Urine Urobilinogen (Negative) Ur Leukocyte Esterase (Negative) Urine RBC (0-4) /hpf Urine WBC (0-5) /hpf Ur Epithelial Cells (0-5) /lpf Urine Bacteria (Negative) Hyaline Casts (0-5) /lpf Granular Casts (0) /lpf Urine Mucus (None Prsent) Urine Osmolality (500-800) mOsm/kg Nasal Screen MRSA (PCR) (Negative) Salicylates (2.8-20) mg/dl Urine Opiates Screen (Neg) U Codeine Confrm GC/MS Ur Morphine (GC/MS) Ur Hydrocodone (GC/MS) Ur Norhydrocodone Ur Noroxycodone Urine Oxycodone (GC/MS) U Oxymorphone GC/MS Ur Methadone, Qual (Neg) Ur Hydromorphone (GC/MS) Urine Barbiturates (Neg) Ur Phencyclidine (PCP) (Neg) U Amphetamin/Meth Scrn (Neg) MDMA (Ecstasy) Screen (Neg) U Benzodiazepines Scrn (Neg) Ur Cocaine Metabolite (Neg) U Marijuana (THC) Screen (Neg) 04/19/19 04/19/19 04/19/19 Range/Units 05:01 05:01 04:09 WBC (4.8-10.8) K/uL RBC (4.2-5.4) M/uL Hgb (12.0-16.0) g/dL Hct (37-47) % MCV (80-100) fL MCH (25-34) pg MCHC (32-36) g/dL RDW Std Deviation (36.4-46.3) fL RDW Coeff of Juan (11.5-14.5) % Plt Count (130-400) K/uL MPV (7.4-10.4) fL Immature Gran % (Auto) % Neut % (Auto) % Lymph % (Auto) % Gray % (Auto) % Eos % (Auto) % Baso % (Auto) % Immature Gran # (Auto) (0.00-0.02) K/uL Neut # (Auto) (1.4-6.5) K/uL Lymph # (Auto) (1.2-3.4) K/uL Gray # (Auto) (0.11-0.59) K/uL Eos # (Auto) (0-0.5) K/uL Baso # (Auto) (0-0.2) K/uL PT (9.0-12.0) Seconds INR (0.9-1.1) APTT (21.0-31.0) Seconds PTT Ratio ABG pH (7.35-7.45) ABG pCO2 (35-46) mmHg ABG pO2 (80-95) mm/Hg ABG HCO3 (19-24) mmol/L ABG O2 Saturation (90-95) % ABG Base Excess (-9-1.8) mEq/L Mil Test (Pos) Barometric Pressure mm/Hg Oxygen Given Sodium Cancelled (136-145) mmol/L Potassium Cancelled (3.5-5.1) mmol/L Chloride Cancelled (98-107) mmol/L Carbon Dioxide Cancelled (21-32) mmol/L Anion Gap Cancelled (3-11) BUN Cancelled (7-18) mg/dl Creatinine Cancelled (0.6-1.2) mg/dl Est Cr Clr Drug Dosing Cancelled ml/min Est GFR ( Amer) Cancelled Est GFR (Non-Af Amer) Cancelled BUN/Creatinine Ratio Cancelled (10-20) Glucose Cancelled (70-99) mg/dl POC Glucose 317 H* (70-99) Estimat Average Glucose mg/dl Hemoglobin A1c (4.5-5.6) % Osmolality (280-300) mOsm/kg Lactate (0.4-2.0) mmol/L Calcium Cancelled (8.5-10.1) mg/dl Phosphorus (2.5-4.9) mg/dl Magnesium (1.8-2.4) mg/dl Total Bilirubin (0.2-1) mg/dl AST (15-37) U/L ALT (12-78) U/L Alkaline Phosphatase (45-117) U/L Total Protein (6.4-8.2) gm/dl Albumin (3.4-5.0) gm/dl Globulin (2.5-4.0) gm/dl Albumin/Globulin Ratio (0.9-2) Vitamin B12 Cancelled Beta-Hydroxybutyric Acd (0.2-2.81) mg/dl Procalcitonin (0-0.5) ng/ml TSH Cancelled Urine Color Urine Appearance (Clear) Urine pH (4.5-7.5) Ur Specific [place] (1.000-1.030) Urine Protein (Negative) Urine Glucose (UA) (Negative) Urine Ketones (Negative) Urine Blood (Negative) Urine Nitrite (Negative) Urine Bilirubin (Negative) Urine Urobilinogen (Negative) Ur Leukocyte Esterase (Negative) Urine RBC (0-4) /hpf Urine WBC (0-5) /hpf Ur Epithelial Cells (0-5) /lpf Urine Bacteria (Negative) Hyaline Casts (0-5) /lpf Granular Casts (0) /lpf Urine Mucus (None Prsent) Urine Osmolality (500-800) mOsm/kg Nasal Screen MRSA (PCR) (Negative) Salicylates (2.8-20) mg/dl Urine Opiates Screen (Neg) U Codeine Confrm GC/MS Ur Morphine (GC/MS) Ur Hydrocodone (GC/MS) Ur Norhydrocodone Ur Noroxycodone Urine Oxycodone (GC/MS) U Oxymorphone GC/MS Ur Methadone, Qual (Neg) Ur Hydromorphone (GC/MS) Urine Barbiturates (Neg) Ur Phencyclidine (PCP) (Neg) U Amphetamin/Meth Scrn (Neg) MDMA (Ecstasy) Screen (Neg) U Benzodiazepines Scrn (Neg) Ur Cocaine Metabolite (Neg) U Marijuana (THC) Screen (Neg) 04/19/19 04/19/19 04/19/19 Range/Units 02:10 02:02 01:40 WBC (4.8-10.8) K/uL RBC (4.2-5.4) M/uL Hgb (12.0-16.0) g/dL Hct (37-47) % MCV (80-100) fL MCH (25-34) pg MCHC (32-36) g/dL RDW Std Deviation (36.4-46.3) fL RDW Coeff of Juan (11.5-14.5) % Plt Count (130-400) K/uL MPV (7.4-10.4) fL Immature Gran % (Auto) % Neut % (Auto) % Lymph % (Auto) % Gray % (Auto) % Eos % (Auto) % Baso % (Auto) % Immature Gran # (Auto) (0.00-0.02) K/uL Neut # (Auto) (1.4-6.5) K/uL Lymph # (Auto) (1.2-3.4) K/uL Gray # (Auto) (0.11-0.59) K/uL Eos # (Auto) (0-0.5) K/uL Baso # (Auto) (0-0.2) K/uL PT (9.0-12.0) Seconds INR (0.9-1.1) APTT (21.0-31.0) Seconds PTT Ratio ABG pH (7.35-7.45) ABG pCO2 (35-46) mmHg ABG pO2 (80-95) mm/Hg ABG HCO3 (19-24) mmol/L ABG O2 Saturation (90-95) % ABG Base Excess (-9-1.8) mEq/L Mil Test (Pos) Barometric Pressure mm/Hg Oxygen Given Sodium (136-145) mmol/L Potassium (3.5-5.1) mmol/L Chloride (98-107) mmol/L Carbon Dioxide (21-32) mmol/L Anion Gap (3-11) BUN (7-18) mg/dl Creatinine (0.6-1.2) mg/dl Est Cr Clr Drug Dosing ml/min Est GFR ( Amer) Est GFR (Non-Af Amer) BUN/Creatinine Ratio (10-20) Glucose (70-99) mg/dl POC Glucose 253 H (70-99) Estimat Average Glucose mg/dl Hemoglobin A1c (4.5-5.6) % Osmolality (280-300) mOsm/kg Lactate (0.4-2.0) mmol/L Calcium (8.5-10.1) mg/dl Phosphorus 2.2 L (2.5-4.9) mg/dl Magnesium 2.2 (1.8-2.4) mg/dl Total Bilirubin (0.2-1) mg/dl AST (15-37) U/L ALT (12-78) U/L Alkaline Phosphatase (45-117) U/L Total Protein (6.4-8.2) gm/dl Albumin (3.4-5.0) gm/dl Globulin (2.5-4.0) gm/dl Albumin/Globulin Ratio (0.9-2) Vitamin B12 Beta-Hydroxybutyric Acd 70.39 H (0.2-2.81) mg/dl Procalcitonin (0-0.5) ng/ml TSH Urine Color Yellow Urine Appearance Slightly Cloudy (Clear) Urine pH 5.5 (4.5-7.5) Ur Specific [place] 1.020 (1.000-1.030) Urine Protein 1+ H (Negative) Urine Glucose (UA) 2+ H (Negative) Urine Ketones 3+ H (Negative) Urine Blood 1+ H (Negative) Urine Nitrite Negative (Negative) Urine Bilirubin Negative (Negative) Urine Urobilinogen Negative (Negative) Ur Leukocyte Esterase Negative (Negative) Urine RBC 0-4 (0-4) /hpf Urine WBC 0-5 (0-5) /hpf Ur Epithelial Cells 0-5 (0-5) /lpf Urine Bacteria 1+ H (Negative) Hyaline Casts 0-5 (0-5) /lpf Granular Casts 5-10 H (0) /lpf Urine Mucus (None Prsent) Urine Osmolality (500-800) mOsm/kg Nasal Screen MRSA (PCR) (Negative) Salicylates (2.8-20) mg/dl Urine Opiates Screen (Neg) U Codeine Confrm GC/MS Ur Morphine (GC/MS) Ur Hydrocodone (GC/MS) Ur Norhydrocodone Ur Noroxycodone Urine Oxycodone (GC/MS) U Oxymorphone GC/MS Ur Methadone, Qual (Neg) Ur Hydromorphone (GC/MS) Urine Barbiturates (Neg) Ur Phencyclidine (PCP) (Neg) U Amphetamin/Meth Scrn (Neg) MDMA (Ecstasy) Screen (Neg) U Benzodiazepines Scrn (Neg) Ur Cocaine Metabolite (Neg) U Marijuana (THC) Screen (Neg) 04/19/19 04/19/19 04/19/19 Range/Units 00:34 00:34 00:34 WBC (4.8-10.8) K/uL RBC (4.2-5.4) M/uL Hgb (12.0-16.0) g/dL Hct (37-47) % MCV (80-100) fL MCH (25-34) pg MCHC (32-36) g/dL RDW Std Deviation (36.4-46.3) fL RDW Coeff of Juan (11.5-14.5) % Plt Count (130-400) K/uL MPV (7.4-10.4) fL Immature Gran % (Auto) % Neut % (Auto) % Lymph % (Auto) % Gray % (Auto) % Eos % (Auto) % Baso % (Auto) % Immature Gran # (Auto) (0.00-0.02) K/uL Neut # (Auto) (1.4-6.5) K/uL Lymph # (Auto) (1.2-3.4) K/uL Gray # (Auto) (0.11-0.59) K/uL Eos # (Auto) (0-0.5) K/uL Baso # (Auto) (0-0.2) K/uL PT (9.0-12.0) Seconds INR (0.9-1.1) APTT (21.0-31.0) Seconds PTT Ratio ABG pH 7.21 L (7.35-7.45) ABG pCO2 16 L (35-46) mmHg ABG pO2 71 L (80-95) mm/Hg ABG HCO3 6 L (19-24) mmol/L ABG O2 Saturation 93.5 (90-95) % ABG Base Excess -19.0 L (-9-1.8) mEq/L Mil Test Pos (Pos) Barometric Pressure mm/Hg Oxygen Given RA Sodium (136-145) mmol/L Potassium (3.5-5.1) mmol/L Chloride (98-107) mmol/L Carbon Dioxide (21-32) mmol/L Anion Gap (3-11) BUN (7-18) mg/dl Creatinine (0.6-1.2) mg/dl Est Cr Clr Drug Dosing ml/min Est GFR ( Amer) Est GFR (Non-Af Amer) BUN/Creatinine Ratio (10-20) Glucose (70-99) mg/dl POC Glucose (70-99) Estimat Average Glucose mg/dl Hemoglobin A1c (4.5-5.6) % Osmolality (280-300) mOsm/kg Lactate 1.6 (0.4-2.0) mmol/L Calcium (8.5-10.1) mg/dl Phosphorus (2.5-4.9) mg/dl Magnesium (1.8-2.4) mg/dl Total Bilirubin (0.2-1) mg/dl AST (15-37) U/L ALT (12-78) U/L Alkaline Phosphatase (45-117) U/L Total Protein (6.4-8.2) gm/dl Albumin (3.4-5.0) gm/dl Globulin (2.5-4.0) gm/dl Albumin/Globulin Ratio (0.9-2) Vitamin B12 Beta-Hydroxybutyric Acd 74.66 H (0.2-2.81) mg/dl Procalcitonin (0-0.5) ng/ml TSH Urine Color Urine Appearance (Clear) Urine pH (4.5-7.5) Ur Specific [place] (1.000-1.030) Urine Protein (Negative) Urine Glucose (UA) (Negative) Urine Ketones (Negative) Urine Blood (Negative) Urine Nitrite (Negative) Urine Bilirubin (Negative) Urine Urobilinogen (Negative) Ur Leukocyte Esterase (Negative) Urine RBC (0-4) /hpf Urine WBC (0-5) /hpf Ur Epithelial Cells (0-5) /lpf Urine Bacteria (Negative) Hyaline Casts (0-5) /lpf Granular Casts (0) /lpf Urine Mucus (None Prsent) Urine Osmolality (500-800) mOsm/kg Nasal Screen MRSA (PCR) (Negative) Salicylates (2.8-20) mg/dl Urine Opiates Screen (Neg) U Codeine Confrm GC/MS Ur Morphine (GC/MS) Ur Hydrocodone (GC/MS) Ur Norhydrocodone Ur Noroxycodone Urine Oxycodone (GC/MS) U Oxymorphone GC/MS Ur Methadone, Qual (Neg) Ur Hydromorphone (GC/MS) Urine Barbiturates (Neg) Ur Phencyclidine (PCP) (Neg) U Amphetamin/Meth Scrn (Neg) MDMA (Ecstasy) Screen (Neg) U Benzodiazepines Scrn (Neg) Ur Cocaine Metabolite (Neg) U Marijuana (THC) Screen (Neg) 04/18/19 04/18/19 04/18/19 Range/Units 23:58 23:35 23:35 WBC (4.8-10.8) K/uL RBC (4.2-5.4) M/uL Hgb (12.0-16.0) g/dL Hct (37-47) % MCV (80-100) fL MCH (25-34) pg MCHC (32-36) g/dL RDW Std Deviation (36.4-46.3) fL RDW Coeff of Juan (11.5-14.5) % Plt Count (130-400) K/uL MPV (7.4-10.4) fL Immature Gran % (Auto) % Neut % (Auto) % Lymph % (Auto) % Gray % (Auto) % Eos % (Auto) % Baso % (Auto) % Immature Gran # (Auto) (0.00-0.02) K/uL Neut # (Auto) (1.4-6.5) K/uL Lymph # (Auto) (1.2-3.4) K/uL Gray # (Auto) (0.11-0.59) K/uL Eos # (Auto) (0-0.5) K/uL Baso # (Auto) (0-0.2) K/uL PT (9.0-12.0) Seconds INR (0.9-1.1) APTT (21.0-31.0) Seconds PTT Ratio ABG pH (7.35-7.45) ABG pCO2 (35-46) mmHg ABG pO2 (80-95) mm/Hg ABG HCO3 (19-24) mmol/L ABG O2 Saturation (90-95) % ABG Base Excess (-9-1.8) mEq/L Mil Test (Pos) Barometric Pressure mm/Hg Oxygen Given Sodium (136-145) mmol/L Potassium (3.5-5.1) mmol/L Chloride (98-107) mmol/L Carbon Dioxide (21-32) mmol/L Anion Gap (3-11) BUN (7-18) mg/dl Creatinine (0.6-1.2) mg/dl Est Cr Clr Drug Dosing ml/min Est GFR ( Amer) Est GFR (Non-Af Amer) BUN/Creatinine Ratio (10-20) Glucose (70-99) mg/dl POC Glucose 443 H* (70-99) Estimat Average Glucose 263 mg/dl Hemoglobin A1c 10.8 H (4.5-5.6) % Osmolality (280-300) mOsm/kg Lactate (0.4-2.0) mmol/L Calcium (8.5-10.1) mg/dl Phosphorus (2.5-4.9) mg/dl Magnesium (1.8-2.4) mg/dl Total Bilirubin (0.2-1) mg/dl AST (15-37) U/L ALT (12-78) U/L Alkaline Phosphatase (45-117) U/L Total Protein (6.4-8.2) gm/dl Albumin (3.4-5.0) gm/dl Globulin (2.5-4.0) gm/dl Albumin/Globulin Ratio (0.9-2) Vitamin B12 Beta-Hydroxybutyric Acd (0.2-2.81) mg/dl Procalcitonin 0.40 (0-0.5) ng/ml TSH Urine Color Urine Appearance (Clear) Urine pH (4.5-7.5) Ur Specific [place] (1.000-1.030) Urine Protein (Negative) Urine Glucose (UA) (Negative) Urine Ketones (Negative) Urine Blood (Negative) Urine Nitrite (Negative) Urine Bilirubin (Negative) Urine Urobilinogen (Negative) Ur Leukocyte Esterase (Negative) Urine RBC (0-4) /hpf Urine WBC (0-5) /hpf Ur Epithelial Cells (0-5) /lpf Urine Bacteria (Negative) Hyaline Casts (0-5) /lpf Granular Casts (0) /lpf Urine Mucus (None Prsent) Urine Osmolality (500-800) mOsm/kg Nasal Screen MRSA (PCR) (Negative) Salicylates (2.8-20) mg/dl Urine Opiates Screen (Neg) U Codeine Confrm GC/MS Ur Morphine (GC/MS) Ur Hydrocodone (GC/MS) Ur Norhydrocodone Ur Noroxycodone Urine Oxycodone (GC/MS) U Oxymorphone GC/MS Ur Methadone, Qual (Neg) Ur Hydromorphone (GC/MS) Urine Barbiturates (Neg) Ur Phencyclidine (PCP) (Neg) U Amphetamin/Meth Scrn (Neg) MDMA (Ecstasy) Screen (Neg) U Benzodiazepines Scrn (Neg) Ur Cocaine Metabolite (Neg) U Marijuana (THC) Screen (Neg) 04/18/19 04/18/19 04/18/19 Range/Units 23:35 23:35 23:35 WBC 21.95 H (4.8-10.8) K/uL RBC 5.10 (4.2-5.4) M/uL Hgb 18.9 H (12.0-16.0) g/dL Hct 54.3 H (37-47) % MCV 106.5 H (80-100) fL MCH 37.1 H (25-34) pg MCHC 34.8 (32-36) g/dL RDW Std Deviation 55.3 H (36.4-46.3) fL RDW Coeff of Juan 14.0 (11.5-14.5) % Plt Count 246 (130-400) K/uL MPV 11.5 H (7.4-10.4) fL Immature Gran % (Auto) 3.1 % Neut % (Auto) 83.6 % Lymph % (Auto) 6.0 % Gray % (Auto) 7.0 % Eos % (Auto) 0.0 % Baso % (Auto) 0.3 % Immature Gran # (Auto) 0.69 H (0.00-0.02) K/uL Neut # (Auto) 18.33 H (1.4-6.5) K/uL Lymph # (Auto) 1.32 (1.2-3.4) K/uL Gray # (Auto) 1.53 H (0.11-0.59) K/uL Eos # (Auto) 0.01 (0-0.5) K/uL Baso # (Auto) 0.07 (0-0.2) K/uL PT 10.1 (9.0-12.0) Seconds INR 1.0 (0.9-1.1) APTT 23.7 (21.0-31.0) Seconds PTT Ratio 0.9 ABG pH (7.35-7.45) ABG pCO2 (35-46) mmHg ABG pO2 (80-95) mm/Hg ABG HCO3 (19-24) mmol/L ABG O2 Saturation (90-95) % ABG Base Excess (-9-1.8) mEq/L Mil Test (Pos) Barometric Pressure mm/Hg Oxygen Given Sodium 132 L (136-145) mmol/L Potassium 5.0 (3.5-5.1) mmol/L Chloride 101 (98-107) mmol/L Carbon Dioxide 11 L (21-32) mmol/L Anion Gap 20.0 H (3-11) BUN 23 H (7-18) mg/dl Creatinine 1.77 H (0.6-1.2) mg/dl Est Cr Clr Drug Dosing 44.5 ml/min Est GFR ( Amer) 37.1 Est GFR (Non-Af Amer) 32.0 BUN/Creatinine Ratio 12.8 (10-20) Glucose 383 H* (70-99) mg/dl POC Glucose (70-99) Estimat Average Glucose mg/dl Hemoglobin A1c (4.5-5.6) % Osmolality (280-300) mOsm/kg Lactate (0.4-2.0) mmol/L Calcium 10.1 (8.5-10.1) mg/dl Phosphorus (2.5-4.9) mg/dl Magnesium (1.8-2.4) mg/dl Total Bilirubin 0.7 (0.2-1) mg/dl AST 40 H (15-37) U/L ALT 73 (12-78) U/L Alkaline Phosphatase 153 H (45-117) U/L Total Protein 8.6 H (6.4-8.2) gm/dl Albumin 3.4 (3.4-5.0) gm/dl Globulin 5.2 H (2.5-4.0) gm/dl Albumin/Globulin Ratio 0.7 L (0.9-2) Vitamin B12 Beta-Hydroxybutyric Acd (0.2-2.81) mg/dl Procalcitonin (0-0.5) ng/ml TSH Urine Color Urine Appearance (Clear) Urine pH (4.5-7.5) Ur Specific [place] (1.000-1.030) Urine Protein (Negative) Urine Glucose (UA) (Negative) Urine Ketones (Negative) Urine Blood (Negative) Urine Nitrite (Negative) Urine Bilirubin (Negative) Urine Urobilinogen (Negative) Ur Leukocyte Esterase (Negative) Urine RBC (0-4) /hpf Urine WBC (0-5) /hpf Ur Epithelial Cells (0-5) /lpf Urine Bacteria (Negative) Hyaline Casts (0-5) /lpf Granular Casts (0) /lpf Urine Mucus (None Prsent) Urine Osmolality (500-800) mOsm/kg Nasal Screen MRSA (PCR) (Negative) Salicylates (2.8-20) mg/dl Urine Opiates Screen (Neg) U Codeine Confrm GC/MS Ur Morphine (GC/MS) Ur Hydrocodone (GC/MS) Ur Norhydrocodone Ur Noroxycodone Urine Oxycodone (GC/MS) U Oxymorphone GC/MS Ur Methadone, Qual (Neg) Ur Hydromorphone (GC/MS) Urine Barbiturates (Neg) Ur Phencyclidine (PCP) (Neg) U Amphetamin/Meth Scrn (Neg) MDMA (Ecstasy) Screen (Neg) U Benzodiazepines Scrn (Neg) Ur Cocaine Metabolite (Neg) U Marijuana (THC) Screen (Neg) Medications Administered Current Inpatient Medications Amitriptyline HCl (Elavil) 25 mg PO HS [facility]IGUEL ANGEL Stop: 05/19/19 20:59 Amitriptyline HCl (Elavil) 100 mg PO HS [facility] ANGEL Stop: 05/19/19 20:59 Buspirone HCl (Buspar) 15 mg PO BID [facility]IGU[facility] ANGEL Stop: 05/19/19 08:59 Last Admin: 04/19/19 09:04 Dose: Not Given Documented by: Dextrose (Dextrose 50%) 25 - 50 ml IV UD PRN; Protocol PRN Reason: Hypoglycemia Protocol Stop: 05/19/19 04:44 Enoxaparin Sodium (Lovenox) 40 mg SQ QAM [facility] Stop: 05/19/19 10:59 Gabapentin (Neurontin) 800 mg PO QID [facility] ANGEL Stop: 05/19/19 08:59 Last Admin: 04/19/19 09:04 Dose: Not Given Documented by: Glucagon (Glucagen) 1 mg IM UD PRN; Protocol PRN Reason: Hypoglycemia Protocol Stop: 05/19/19 04:44 Glucose (Glucose 40%) 15 - 30 gm PO UD PRN; Protocol PRN Reason: Hypoglycemia Protocol Stop: 05/19/19 04:44 Glucose (Dex4 Glucose) 4 - 8 tabs PO UD PRN; Protocol PRN Reason: Hypoglycemia Protocol Stop: 05/19/19 04:44 Hydrocortisone (Cortef) 80 mg PO QAM [facility] Stop: 05/19/19 04:59 Last Admin: 04/19/19 04:56 Dose: 80 mg Documented by: Hydromorphone HCl (Dilaudid) 0.4 mg IV Q4H PRN PRN Reason: Pain Stop: 05/03/19 10:49 Ceftriaxone Sodium 1,000 mg/ (Dextrose) 50 mls @ 100 mls/hr IV Q24H [facility]; Protocol Stop: 04/26/19 04:59 Last Infusion: 04/19/19 05:30 Dose: Infused Documented by: Azithromycin 500 mg/ Dextrose 255 mls @ 125 mls/hr IV Q24H [facility] Stop: 04/26/19 05:59 Last Infusion: 04/19/19 09:07 Dose: Infused Documented by: Insulin Human Regular 250 (units/ Sodium Chloride) 250 mls @ 3.6 mls/hr IV .Q24H [facility]; Protocol Stop: 05/19/19 04:44 Last Titration: 04/19/19 07:25 Dose: 3.6 units/hr, 3.6 mls/hr Documented by: Potassium Chloride/Dextrose/Sod Cl (D5w And 1/2nss + 20meq Kcl) 20 meq in 1,000 mls @ 200 mls/hr IV .Q5H [facility] Stop: 05/19/19 06:29 Last Admin: 04/19/19 06:25 Dose: 200 mls/hr Documented by: Insulin Aspart (Novolog Flexpen) 0 units SC ACHS [facility] ANGEL Stop: 05/19/19 07:29 Last Admin: 04/19/19 09:04 Dose: Not Given Documented by: Levothyroxine Sodium (Synthroid) 100 mcg PO DAILYBB [facility] ANGEL Stop: 05/19/19 06:29 Last Admin: 04/19/19 07:03 Dose: Not Given Documented by: Miscellaneous (Carbohydrates For Hypoglycemia) 15 - 30 gm PO UD PRN PRN Reason: Hypoglycemia Treatment Stop: 05/19/19 04:44 Miscellaneous Information (Consult Glycemic Management Pharmacy) 1 ea N/A UD PRN PRN Reason: Consult Stop: 05/19/19 04:29 Ondansetron HCl (Zofran) 4 mg IV Q6H PRN PRN Reason: Nausea Stop: 05/19/19 03:52 Oxycodone HCl (Roxicodone Immediate Rel) 10 mg PO [id number] PRN PRN Reason: Pain Stop: 05/03/19 03:52 Zolpidem Tartrate (Ambien) 10 mg PO HS PRN PRN Reason: Sleep Stop: 05/19/19 03:52 Resident Activity Tracking Resident Involvement: Resident Care Provided Care Provided: Adult Hospital Medicine (ICU) (1) DKA (diabetic ketoacidoses) Diabetes mellitus complication detail: without coma Diabetes mellitus type: other specified (including VICKY) Qualified Code(s): E13.10 - Other specified diabetes mellitus with ketoacidosis without coma
--- NOTE | 2019-04-19 11:16 | Billing Data ---
Coding Level of Care Code Critical Care 1st 30-74 mins
[2019-04-19] MEDS: ENOXAPARIN INJ 40 MG/0.4 ML SYR SQ SCH (11:35)
[2019-04-19] MEDS: HYDROmorphone INJ 0.5 MG/0.5 ML SYR IV PRN ×3 (11:36→21:04)
--- NOTE | 2019-04-19 11:45 | Pharmacy Report ---
Pharmacy Glycemic Short Note 2 - Date of Service April 19, 2019 - Glycemic Short BSG Results (Last 24 hours): 04/18/19 04/18/19 04/19/19 23:35 23:58 02:10 Glucose 383 H* POC Glucose 443 H* 253 H 04/19/19 04/19/19 04/19/19 04:09 05:01 05:52 Glucose Cancelled POC Glucose 317 H* 198 H 04/19/19 04/19/19 04/19/19 06:06 07:23 07:59 Glucose 181 H 241 H POC Glucose 270 H 04/19/19 04/19/19 04/19/19 08:29 09:34 10:48 Glucose POC Glucose 232 H 217 H 245 H OUTPATIENT ANTIDIABETIC REGIMEN: * Jardiance 10mg QD * Metformin 500mg BID * A1c:10.8% ASSESSMENT: * Patient presenting in DKA, continues to be acidotic. Discussed possible association of ketoacidosis with SGLT-2 with provider. IV fluids of D5W1/2NSS +20 kcl continue to run at 200mL/hr. Goal range remains 150-250, with insulin infusion currently stable at 3.6 units/hr. Patient ordered hydrocortisone 80mg QD (home medication at increased dose). Discussed with provider team and will plan to continue dextrose containing fluids and insulin drip at this time pending resolution of acidosis. PLAN FOR INPATIENT GLYCEMIC CONTROL: * Hold outpatient oral diabetes medications * Basal insulin * Continue insulin infusion * Goal Range 150 - 250 mg/dl * In the critical care setting, continuous IV insulin infusion has been shown to be the best method for achieving glycemic targets. * Bolus insulin * NovoLog per scale ACHS per insulin infusion adjustment calculator Thank you. PLAN FOR DISCHARGE: * pending
[2019-04-19 12:04] LABS: Hepatitis B Surface Antigen Neg (Neg)
[2019-04-19 12:04] LABS: Influenza A virus by PCR Neg for Influ A (Neg); Influenza B virus by PCR Neg for Influ B (Neg)
--- NOTE | 2019-04-19 12:15 | Ultrasound Report ---
US abdomen limited HISTORY: RUQ u/s for elevated LFTs. COMPARISON: None. FINDINGS: Pancreas: The pancreas demonstrates a normal echotexture. Liver: Fatty infiltration Gallbladder: No gallbladder wall thickening. No gallstones. CBD: 4 mm Right kidney: No hydronephrosis. IMPRESSION: 1. Fatty infiltration of the liver. 2. Otherwise negative study. The above report was generated using voice recognition software. It may contain grammatical, syntax or spelling errors. Electronically signed by: Mukund Sousa M.D. 04/19/2019 12:13 PM
[2019-04-19 12:32] LABS: Hepatitis C IgG 13Yrs+Old_Rflx Neg (Neg)
--- NOTE | 2019-04-19 14:42 | Medical Student Progress Note ---
Date of Service April 19, 2019 Assessment & Plan (1) DKA (diabetic ketoacidoses): Mai Briceño is a 54 y/o F w/ a PMHx of adrenal insufficiency, type 2 diabetes, hyperlipidemia, trigeminal neuralgia, and anxiety who was admitted due to AMS, coordination issues, SOB, and hyperglycemia. CT head unremarkable. CXR showed bilateral infiltrates. Trigger of DKA currently unknown. Could be a combination of home steroids, poorly controlled diabetes, recent change to Empagliflozin, and potential pneumonia. DKA (diabetic ketoacidoses) likley secondary to the exogenous steroid for ?adrenal insufficiency Most recently, patient BSG 232, AG 18, Na 134, K 4.3, Cl 108, CO2 8. -worsening acidosis - transferred to ICU status. -Continue IV insulin drip until AG reaches normal level and then start SQ insulin -Aggressive hydration w/ potassium chloride/dextrose/NaCl -On discharge - will need to start insulin Tachypneia -No hypoxia noted but possibly compensating hypoxia via increased RR. -?CAP/fluid overload - follow -compensatory for significant metabolic acidosis. -follow. ? Community Acquired Pneumonia In ED, CXR showed bilateral infiltrates concerning for CAP pneumonia. WBC 22. Patient also had 3 day Hx of SOB. Patient continues to be tachypneic. Chest CT concerning for edema vs bilateral infiltrate. Per critical care team, not convinced this is CAP but continuing Abx. On 3 L oxygen NC, sat 95% -Continue IV Ceftriaxone 1,000 mg (how long) -Continue IV Azithromycin 500 mg -CPAP/BPAP tried but not tolerated by patient -BCx and UCx pending -Sputum culture pending -Neg for Influ A & B ? Adrenal Insufficiency -Reviewing patient's record -Unclear whether this diagnosis has been established -was put on dexamethasone for sometime to treat atypical facial pain and then for concern of adrenal insufficiency has been on hydrocortisone. No official evaluation has been done. -Patient home hydrocortisone dose 40 mg. Patient increased to 50 mg three days prior. Patient now receiving 80 mg stress dose. Hypertension -Holding spironolactone 100 mg PO daily LAFB (left anterior fasciular block) PMHx of HTN, EKG on admit showed sinus tachy and LAFB -Monitor for prolonged QTc Diabetes Mellitus Patient treated at home with metformin and recently empagliflozin for blood sugars in the 300s. Empagliflozin can cause DKA so was listed as allergy. Atypical facial pain/?Trigeminal Neuralgia -Holding oxycodone (reportedly 15 mg daily) -Holding amitriptyline 125 mg daily -Holding gabapentin 800 mg PO QID -Given dilaudid .4 mg q4h prn Hypothyroidism On admission, TSH .273. Free T4 1.18 -Continue home Synthroid Elevated LFTs -Hepatitis panel pending - Abdominal ultrasound showed fatty infiltration of the liver, otherwise negative Anxiety -Holding buspirone 15 mg PO daily, prn alprazolam .5 mg, and escitalopram 10 mg daily Code status: Full code. PT/OT: Deferred on admit. DVT Prophylaxis: Lovenox 40 mg daily and SCDs Disposition: Admitted to ICU. Critically ill. Diabetes mellitus complication detail: without coma Diabetes mellitus type: other specified (including VICKY) Qualified Code(s): E13.10 - Other specified diabetes mellitus with ketoacidosis without coma Supervising Attestation Medical Student Supervision Note: I independently interviewed and examined the patient and verified the franklin history and physical, reviewed labs and image studies, discussed the case with the Rachel Ramos and agree with the findings and care plan. Patient restless and tachypneic in bed. heart - rrr, no m/g/r lungs - tachypneic, cta b/l on insulin drip. had bipap placed last night but couldn't tolerate. due to worsening acidosis - transferred to ICU status follow. Subjective Mai Briceño is a 54 y/o F with a PMHx of adrenal insufficiency, type 2 diabetes, hyperlipidemia, trigeminal neuralgia, and anxiety. She presented to the ED on 04/18 night with SOB and AMS x3 days. She was admitted to the ICU. Her labs on admission were significant for hyperglycemia (BSG 383) and elevated beta hydroxybutyrate (74.6). AG was 21.0 and pH was 7.22. This morning, patient is still acutely ill. She is diaphoretic, uncomfortable lying in bed, with Kussmaul respirations. Patient reports concern of dry mouth. History and physical limited due to patient discomfort. Results & Data Vital Signs (Past 12 Hours) Vital Signs Temp Pulse Pulse Resp BP BP Pulse Ox 04/19/19 14:30 108 H 43 H 95 04/19/19 14:20 107 H 27 H 94 04/19/19 14:10 109 H 26 H 93 11/19/19 14:01 109 H 49 H 94 04/19/19 14:00 109 H 44 H 136/88 93 04/19/19 13:50 112 H 37 H 93 04/19/19 13:40 111 H 22 92 04/19/19 13:30 110 H 44 H 93 04/19/19 13:20 116 H 41 H 94 04/19/19 13:10 111 H 31 H 93 04/19/19 13:01 111 H 41 H 94 04/19/19 13:00 111 H 39 H 153/86 H 94 04/19/19 12:50 112 H 37 H 95 04/19/19 12:40 109 H 42 H 94 04/19/19 12:30 110 H 23 93 04/19/19 12:20 111 H 44 H 94 04/19/19 12:14 109 H 42 H 93 04/19/19 12:13 106 H 29 H 128/82 92 04/19/19 10:10 113 H 38 H 92 04/19/19 10:01 118 H 21 91 04/19/19 10:00 117 H 39 H 153/76 H 91 04/19/19 09:50 114 H 38 H 93 04/19/19 09:40 112 H 30 H 93 04/19/19 09:30 109 H 18 94 04/19/19 09:20 110 H 43 H 94 04/19/19 09:10 111 H 42 H 93 04/19/19 09:02 111 H 47 H 94 04/19/19 09:00 112 H 49 H 94 04/19/19 08:00 37.0 C 111 H 39 H 154/95 H 98 04/19/19 07:30 112 H 38 H 100 04/19/19 07:01 113 H 39 H 100 04/19/19 07:00 113 H 40 H 159/93 H 100 04/19/19 06:16 111 H 43 H 100 04/19/19 06:00 109 H 29 H 144/88 H 90 04/19/19 05:31 115 H 38 H 131/86 04/19/19 05:00 108 H 45 H 04/19/19 04:54 36.5 C 111 H 28 H 135/82 92 04/19/19 04:01 110 H 36 H 04/19/19 04:00 110 H 40 H 132/81 04/19/19 03:30 111 H 30 H 146/86 H 93 04/19/19 03:12 111 H 30 H 147/86 H 93
[2019-04-19 16:47] LABS: Creatinine Clr Calc Pharmacy 90.7 ml/min; Est GFR (African American) 86.3; Est GFR (Non-African American) 74.5; Potassium 3.9 mmol/L (3.5-5.1)
[2019-04-20 00:53] LABS: BUN Creatinine Ratio 14.4 (10-20); Calcium 9.1 mg/dl (8.5-10.1); Creatinine Clr Calc Pharmacy 102.4 ml/min; Est GFR (African American) 99.9; Est GFR (Non-African American) 86.2; Potassium 3.4 mmol/L (3.5-5.1)
[2019-04-20] MEDS: HYDROmorphone INJ 0.5 MG/0.5 ML SYR IV PRN ×2 (01:04→05:08)
[2019-04-20] MEDS: POTASSIUM CHLORIDE / WTR 10 MEQ/100 ML PLCT IV SCH ×4 (01:53→04:57)
[2019-04-20] MEDS: INSULIN REGULAR 250 UNITS in SODIUM CHLORIDE 0.9% 247.5 ML IV SCH (02:40)
[2019-04-20] MEDS: D5W AND 1/2NSS + 20MEQ KCL 20 MEQ/1,000 ML BAG IV SCH ×2 (03:41→08:48)
[2019-04-20 04:59] LABS: pH VBG 7.31 (7.36-7.41)
[2019-04-20] MEDS: cefTRIAXone SODIUM 1,000 MG in DEXTROSE 5% 50 ML IV SCH (05:05)
[2019-04-20 05:15] LABS: Basophils # (auto) 0.02 K/uL (0-0.2); Basophils % (auto) 0.2 %; Eosinophils # (auto) 0.04 K/uL (0-0.5); Eosinophils % (auto) 0.3 %; Hematocrit (blood only) 44.4 % (37-47); Hemoglobin 15.7 g/dL (12.0-16.0); Immature Granulocytes # (auto) 0.25 K/uL (0.00-0.02); Immature Granulocytes % (auto) 1.9 %; Lymphocytes # (auto) 1.19 K/uL (1.2-3.4); Lymphocytes % (auto) 9.1 %; Mean Corpuscular Hemoglobin 36.9 pg (25-34); Mean Corpuscular Hgb Conc 35.4 g/dL (32-36); Mean Corpuscular Volume 104.5 fL (80-100); Mean Platelet Volume 10.8 fL (7.4-10.4); Monocytes # (auto) 0.97 K/uL (0.11-0.59); Monocytes % (auto) 7.4 %; Neutrophils # (auto) 10.64 K/uL (1.4-6.5); Neutrophils % (auto) 81.1 %; Platelet Count 169 K/uL (130-400); RDW Coefficient of Variation 14.5 % (11.5-14.5); Red Blood Count 4.25 M/uL (4.2-5.4); White Blood Count 13.11 K/uL (4.8-10.8)
[2019-04-20 05:23] LABS: Magnesium 2.2 mg/dl (1.8-2.4); Phosphorus 0.7 mg/dl (2.5-4.9)
[2019-04-20 05:48] LABS: BUN Creatinine Ratio 14.7 (10-20); Calcium 9.1 mg/dl (8.5-10.1); Creatinine Clr Calc Pharmacy 102.4 ml/min; Est GFR (African American) 99.9; Est GFR (Non-African American) 86.2; Potassium 4.1 mmol/L (3.5-5.1)
[2019-04-20 06:03] LABS: Hepatitis A Antibody IgM NON-REACTIVE (NON-REACTIVE); Hepatitis B Core Antibody IgM NON-REACTIVE (NON-REACTIVE)
[2019-04-20] MEDS: LEVOTHYROXINE SODIUM 100 MCG TABLET PO SCH (06:09)
[2019-04-20] MEDS: AZITHROMYCIN 500 MG in DEXTROSE 5% 250 ML IV SCH (06:09)
[2019-04-20] MEDS ORDERED: POTASSIUM PHOS 3 MMOL/1 ML INFUSION IV STA (06:31)
--- NOTE | 2019-04-20 06:55 | XRay Report ---
XR chest 1V portable HISTORY: 54 years-old Female serial eval for infiltrate acute shortness of breath COMPARISON: Chest radiograph 04/18/2019, CTA chest 04/19/2019 TECHNIQUE: Portable AP view of the chest FINDINGS: Cardiac silhouette is mildly enlarged. Mild right hemidiaphragmatic elevation. No pneumothorax. There are patchy progressively worsened ill-defined bilateral opacities, right greater than left. Degenera tive changes of the shoulders and spine. IMPRESSION: Progressively worsened right greater than left bilateral patchy ill-defined opacities. Di fferential considerations would again include a nonspecific infectious or inflammatory pneumonitis, p ulmonary edema or drug reaction among other etiologies. The above report was generated using voice recognition software. It may contain grammatical, syntax o r spelling errors. Electronically signed by: Oleksandr Pinon M.D. 04/20/2019 6:54 AM
[2019-04-20] MEDS ORDERED: POTASSIUM PHOSPHATE 21 MMOL in SODIUM CHLORIDE 0.9% 500 ML IV ONE (07:00)
[2019-04-20] MEDS: ENOXAPARIN INJ 40 MG/0.4 ML SYR SQ SCH (07:31)
[2019-04-20] MEDS: HYDROCORTISONE 10 MG TAB PO SCH (07:31)
[2019-04-20] MEDS: INSULIN ASPART 100 UNITS/ML 3 ML PEN SC SCH ×5 (07:33→20:28)
[2019-04-20] MEDS ORDERED: DC IV INSULIN INFUSION 1 EA DEVI SCH ×2 (10:30→16:30)
[2019-04-20] MEDS ORDERED: INSULIN GLARGINE SOLOSTAR 100 UNITS/ML 3 ML PEN SC SCH ×2 (10:30→21:00)
[2019-04-20] MEDS: SODIUM BICARB 8.4% INJ 50 MEQ/50 ML SYR IV SCH ×2 (10:33→10:34)
[2019-04-20] MEDS ORDERED: ALPRAZolam 0.5 MG TABLET PO PRN (11:00)
--- NOTE | 2019-04-20 11:01 | Critical Care Progress Note ---
Date of Service April 20, 2019 Assessment & Plan (1) DKA (diabetic ketoacidoses): 54-year-old female was admitted on April 19, 2019 for SOB, coordination issues, and elevated glucose. 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 Pre-admit concerns with coordination and fatigue. CT head non-acute. PMH trigeminal neuralgia and anxiety. UDS positive for opiates. Subjectively continues to be impulsive and has issues with communication. - Tried to order MRI brain but patient has multiple ear rings. Patient says only her textile artist can remove them. Thus will cancel and clinically monitor with CIWA scales q4h. - Will restart her home medications with some modifications of her oxycodone prn and Xanax prn. - After reviewing PDMP, concerns about high doses of Ambien + Xanax + oxycodone. Would benefit from direct indication for these medications and review of outpatient dosing. Pulm: No known underlying issues. Tachypnea improving. CT chest concerning for edema vs bilateral infiltrate. Serial pCXR concerning for worse R>L patchy opacities. See ID below. On minimal NC oxygen. CVS: No known acute issues. PMH HTN. Admit EKG sinus tach and LAFB. QTc 427. ID: [id number]. WBC down to 13. Lactate and procalcitonin okay. BCx NGTD. UCx pending. Influenza negative. Concern for pneumonia on imaging. 19Nov began ceftriaxone and azithromycin. Ordered expectorated sputum (though s/p abx start). - 20Nov stopping ceftriaxone, keep azithromycin. Endo: - PMH diabetes (admit HbA1c 10.8). At home was on empagliflozin and metformin. On arrival, in DKA with unclear cause, though empagliflozin can do this (so listed as an allergy). Presently AG has closed. Transitioning off D5 IVF and insulin drip to injection insulin. Will give additional dose of bicarb. - PMH adrenal insufficiency (unclear cause). Patient recently increased hydrocortisone to 50 mg (from baseline 40 mg). In hospital, briefly on 80 mg stress dose. Will decrease back to home 40 mg. - PMH hypothyroid, at home on levothyroxine. Admit TSH 0.27, T4 normal. Renal/Lytes: Initial Cr 1.7, quickly resolved to 1.01 after IVF. Held home spironolactone. - Hypophosphatemia: Phos as low as 0.7. Replaced, monitoring. GI: No known underlying issues. Admit LFTs mildly elevated. Tylenol and hepatitis panel negative. Hepatomegaly seen on CT chest. RUQ u/s noted fatty liver. Will start on an ADA diet. Heme: Admit Hb 18.9 (suggests concentrated) and MCV 106. Vit B12 level normal. Repeat Hb 15. DVT prophy: Lovenox 40 q day and SCDs. Skin: No acute issues. Lines: PIV. Code status: Full code. PT/OT: Deferred on admit. Disposition: Admitted to ICU. Critically ill. (2) Anxiety: (3) Hypertension: (4) LAFB (left anterior fascicular block): (5) CAP (community acquired pneumonia): (6) Diabetes: (7) Adrenal insufficiency: (8) Trigeminal neuralgia: (9) Hypothyroidism: (10) Elevated LFTs: Supervising Physician Co-Signing Physician Notes Dr. Al was resident physician during care of patient. I separately evaluated patient for franklin portions of the history and the exam. I was present during the critical portion of medical decision making, and I discussed the case with the resident. I generally agree with the findings and plan. Patient was discussed in multidisciplinary rounds. Patient has abnormal EKG, left anterior fascicular block, I doubt this represents overdose due to amitriptyline and Lexapro, continued encephalopathy or impulsive but nature may be related to gabapentin dosing 800 mg 4 times daily and recent PAMELLA however this is improved. I presume continued metabolic improvement will continue to improve her mental status. Considerations were given to obtaining an MRI however she has numerous earrings for which she states she requires her tattoo professional to remove otherwise declines MRI, at this point I think it is reasonable to continue to observe for improvement in her metabolic to conditions as well as mental status. I am concerned that this ketoacidosis could be related to empagliflozin (Jardiance) utilization as there is no obvious infectious source at this time nor reported noncompliance with medication regimens. I also reviewed the patient's PDMP and I am concerned for significant polypharmacy with rather high dose narcotics greater than 90 daily morphine equivalents which would buy most sources classified the patient as opiate prescriptions have been continued for over 1 year in duration as well as benzodiazepines, additional sleep aids. At this time the patient states she was only recently diagnosed as diabetic and reports that her medication regimen has only been in place for approximately 1 to 2 months. I am also concerned as the patient is on QT prolonging medications, at this time we will de-escalate antibiotics to just a macrolide in treating a presumptive community-acquired pneumonia since the patient still maintains a very small oxygen requirement. Of note I believe this oxygen requirement is most likely attributable to volume resuscitation as opposed to a multifocal pneumonia which would usually blossom after profound volume depletion and aggressive fluid resuscitation and in fact the patient's oxygen requirements have been decreasing. Patient reported she unilaterally increased her hydrocortisone dose that she was feeling ill, we are returning her hydrocortisone dose to its routine dosage as she has received higher doses for the added physiological stress. Ultimately I feel the patient is stable for downgrade out of the ICU would advocate for telemetry in some fashion for at least an additional 24 hours given the abnormal EKG and QT prolonging medication use. Subjective Spoke with patient earlier this morning. Overall she did not complain of any new pain. Says she is not breathing as fast. She wonders what is the status of her medications. When asked about her history of diabetes and adrenal issues, she says she was diagnosed with diabetes a month ago and adrenal issues in the summertime. Unclear what the cause of either of these issues was. She also says that she was recently on antifungal medication for thrush related to steroids. However, she says she started steroids in December. On multiple occasions she would start a sentence but would be unable to finish it as if she lost her train of thought. Nursing reports overnight that the patient would not answer basic orientation questions like name and location well. However, she would also ask where her "publications" were and will get frustrated when people did not understand her request. This morning, patient states that she is presently in the hospital due to pneumonia but does not make mention of her hyperglycemia. Nursing further notes that she is impulsive at times. Review of Systems Review of Systems: Per HPI as above. Physical Exam Physical Exam: General Appearance: Awake, alert & oriented, tachypneic but does not appear in physical distress. Mouth: Dry oral mucous membranes. Poor dentition. CV: +S1S2 regular tachycardia, no murmur. Pulm: Tachypnea in 20s. Diminished breath sounds throughout. Abdomen: +BS, soft, non-tender, mildly distended. Extremities: No pedal edema or calf tenderness. Moving all extremities naturally and easily. Neuro: No gross neuro deficits. No extremity resting or intention tremor. Lines: PIV. Results & Data Vital Signs (Past 12 Hours) Vital Signs Temp Pulse Resp BP Pulse Ox 04/20/19 08:01 106 H 48 H 95 04/20/19 08:00 36.4 C L 105 H 44 H 133/89 95 04/20/19 07:01 107 H 23 93 04/20/19 07:00 108 H 34 H 131/84 91 04/20/19 04:01 37.1 C 114 H 24 137/82 90 04/20/19 03:00 109 H 48 H 155/98 H 90 04/20/19 02:00 111 H 22 140/81 90 04/20/19 01:00 110 H 18 135/92 92 04/20/19 00:00 36.5 C 112 H 37 H 152/91 H 93 04/19/19 23:00 110 H 22 135/87 94 Laboratory Results 04/20/19 04/20/19 04/20/19 Range/Units 10:17 08:25 06:12 WBC (4.8-10.8) K/uL RBC (4.2-5.4) M/uL Hgb (12.0-16.0) g/dL Hct (37-47) % MCV (80-100) fL MCH (25-34) pg MCHC (32-36) g/dL RDW Std Deviation (36.4-46.3) fL RDW Coeff of Juan (11.5-14.5) % Plt Count (130-400) K/uL MPV (7.4-10.4) fL Immature Gran % (Auto) % Neut % (Auto) % Lymph % (Auto) % [place] % (Auto) % Eos % (Auto) % Baso % (Auto) % Immature Gran # (Auto) (0.00-0.02) K/uL Neut # (Auto) (1.4-6.5) K/uL Lymph # (Auto) (1.2-3.4) K/uL [place] # (Auto) (0.11-0.59) K/uL Eos # (Auto) (0-0.5) K/uL Baso # (Auto) (0-0.2) K/uL VBG pH (7.36-7.41) VBG pCO2 (38-50) mmHg VBG pO2 mmHg VBG HCO3 mmol/L VBG O2 Saturation % VBG Base Excess mEq/L Barometric Pressure mm/Hg Sodium (136-145) mmol/L Potassium (3.5-5.1) mmol/L Chloride (98-107) mmol/L Carbon Dioxide (21-32) mmol/L Anion Gap (3-11) BUN (7-18) mg/dl Creatinine (0.6-1.2) mg/dl Est Cr Clr Drug Dosing ml/min Est GFR ( Amer) Est GFR (Non-Af Amer) BUN/Creatinine Ratio (10-20) Glucose (70-99) mg/dl POC Glucose 241 H 225 H 235 H (70-99) Calcium (8.5-10.1) mg/dl Phosphorus (2.5-4.9) mg/dl Magnesium (1.8-2.4) mg/dl Free T4 (0.8-1.6) ng/dl Acetaminophen (10-30) ug/ml Hepatitis A IgM Ab (NON-REACTIVE) Hep Bs Antigen (Neg) Hep B Core IgM Ab (NON-REACTIVE) Hepatitis C Antibody (Neg) Influenza Type A (PCR) (Neg) Influenza Type B (PCR) (Neg) 04/20/19 04/20/19 04/20/19 Range/Units 04:40 04:40 04:40 WBC 13.11 H (4.8-10.8) K/uL RBC 4.25 (4.2-5.4) M/uL Hgb 15.7 D (12.0-16.0) g/dL Hct 44.4 (37-47) % MCV 104.5 H (80-100) fL MCH 36.9 H (25-34) pg MCHC 35.4 (32-36) g/dL RDW Std Deviation 55.0 H (36.4-46.3) fL RDW Coeff of Juan 14.5 (11.5-14.5) % Plt Count 169 (130-400) K/uL MPV 10.8 H (7.4-10.4) fL Immature Gran % (Auto) 1.9 % Neut % (Auto) 81.1 % Lymph % (Auto) 9.1 % [place] % (Auto) 7.4 % Eos % (Auto) 0.3 % Baso % (Auto) 0.2 % Immature Gran # (Auto) 0.25 H (0.00-0.02) K/uL Neut # (Auto) 10.64 H (1.4-6.5) K/uL Lymph # (Auto) 1.19 L (1.2-3.4) K/uL [place] # (Auto) 0.97 H (0.11-0.59) K/uL Eos # (Auto) 0.04 (0-0.5) K/uL Baso # (Auto) 0.02 (0-0.2) K/uL VBG pH 7.31 L (7.36-7.41) VBG pCO2 27 L (38-50) mmHg VBG pO2 28 mmHg VBG HCO3 13 mmol/L VBG O2 Saturation 62.0 % VBG Base Excess -11.0 mEq/L Barometric Pressure 730.5 mm/Hg Sodium 135 L (136-145) mmol/L Potassium 4.1 D (3.5-5.1) mmol/L Chloride 111 H (98-107) mmol/L Carbon Dioxide 13 L (21-32) mmol/L Anion Gap 11.0 (3-11) BUN 11 (7-18) mg/dl Creatinine 0.78 (0.6-1.2) mg/dl Est Cr Clr Drug Dosing 102.4 ml/min Est GFR ( Amer) 99.9 Est GFR (Non-Af Amer) 86.2 BUN/Creatinine Ratio 14.7 (10-20) Glucose 192 H (70-99) mg/dl POC Glucose (70-99) Calcium 9.1 (8.5-10.1) mg/dl Phosphorus 0.7 L* D (2.5-4.9) mg/dl Magnesium 2.2 (1.8-2.4) mg/dl Free T4 (0.8-1.6) ng/dl Acetaminophen (10-30) ug/ml Hepatitis A IgM Ab (NON-REACTIVE) Hep Bs Antigen (Neg) Hep B Core IgM Ab (NON-REACTIVE) Hepatitis C Antibody (Neg) Influenza Type A (PCR) (Neg) Influenza Type B (PCR) (Neg) 04/20/19 04/20/19 04/20/19 Range/Units 04:28 03:35 02:34 WBC (4.8-10.8) K/uL RBC (4.2-5.4) M/uL Hgb (12.0-16.0) g/dL Hct (37-47) % MCV (80-100) fL MCH (25-34) pg MCHC (32-36) g/dL RDW Std Deviation (36.4-46.3) fL RDW Coeff of Juan (11.5-14.5) % Plt Count (130-400) K/uL MPV (7.4-10.4) fL Immature Gran % (Auto) % Neut % (Auto) % Lymph % (Auto) % [place] % (Auto) % Eos % (Auto) % Baso % (Auto) % Immature Gran # (Auto) (0.00-0.02) K/uL Neut # (Auto) (1.4-6.5) K/uL Lymph # (Auto) (1.2-3.4) K/uL [place] # (Auto) (0.11-0.59) K/uL Eos # (Auto) (0-0.5) K/uL Baso # (Auto) (0-0.2) K/uL VBG pH (7.36-7.41) VBG pCO2 (38-50) mmHg VBG pO2 mmHg VBG HCO3 mmol/L VBG O2 Saturation % VBG Base Excess mEq/L Barometric Pressure mm/Hg Sodium (136-145) mmol/L Potassium (3.5-5.1) mmol/L Chloride (98-107) mmol/L Carbon Dioxide (21-32) mmol/L Anion Gap (3-11) BUN (7-18) mg/dl Creatinine (0.6-1.2) mg/dl Est Cr Clr Drug Dosing ml/min Est GFR ( Amer) Est GFR (Non-Af Amer) BUN/Creatinine Ratio (10-20) Glucose (70-99) mg/dl POC Glucose 198 H 190 H 191 H (70-99) Calcium (8.5-10.1) mg/dl Phosphorus (2.5-4.9) mg/dl Magnesium (1.8-2.4) mg/dl Free T4 (0.8-1.6) ng/dl Acetaminophen (10-30) ug/ml Hepatitis A IgM Ab (NON-REACTIVE) Hep Bs Antigen (Neg) Hep B Core IgM Ab (NON-REACTIVE) Hepatitis C Antibody (Neg) Influenza Type A (PCR) (Neg) Influenza Type B (PCR) (Neg) 04/20/19 04/20/19 04/20/19 Range/Units 01:40 00:16 00:11 WBC (4.8-10.8) K/uL RBC (4.2-5.4) M/uL Hgb (12.0-16.0) g/dL Hct (37-47) % MCV (80-100) fL MCH (25-34) pg MCHC (32-36) g/dL RDW Std Deviation (36.4-46.3) fL RDW Coeff of Juan (11.5-14.5) % Plt Count (130-400) K/uL MPV (7.4-10.4) fL Immature Gran % (Auto) % Neut % (Auto) % Lymph % (Auto) % [place] % (Auto) % Eos % (Auto) % Baso % (Auto) % Immature Gran # (Auto) (0.00-0.02) K/uL Neut # (Auto) (1.4-6.5) K/uL Lymph # (Auto) (1.2-3.4) K/uL [place] # (Auto) (0.11-0.59) K/uL Eos # (Auto) (0-0.5) K/uL Baso # (Auto) (0-0.2) K/uL VBG pH (7.36-7.41) VBG pCO2 (38-50) mmHg VBG pO2 mmHg VBG HCO3 mmol/L VBG O2 Saturation % VBG Base Excess mEq/L Barometric Pressure mm/Hg Sodium 138 (136-145) mmol/L Potassium 3.4 L (3.5-5.1) mmol/L Chloride 112 H (98-107) mmol/L Carbon Dioxide 13 L (21-32) mmol/L Anion Gap 13.0 H (3-11) BUN 11 (7-18) mg/dl Creatinine 0.78 (0.6-1.2) mg/dl Est Cr Clr Drug Dosing 102.4 ml/min Est GFR ( Amer) 99.9 Est GFR (Non-Af Amer) 86.2 BUN/Creatinine Ratio 14.4 (10-20) Glucose 162 H (70-99) mg/dl POC Glucose 182 H 156 H (70-99) Calcium 9.1 (8.5-10.1) mg/dl Phosphorus (2.5-4.9) mg/dl Magnesium (1.8-2.4) mg/dl Free T4 (0.8-1.6) ng/dl Acetaminophen (10-30) ug/ml Hepatitis A IgM Ab (NON-REACTIVE) Hep Bs Antigen (Neg) Hep B Core IgM Ab (NON-REACTIVE) Hepatitis C Antibody (Neg) Influenza Type A (PCR) (Neg) Influenza Type B (PCR) (Neg) 04/19/19 04/19/19 04/19/19 Range/Units 20:33 16:37 15:58 WBC (4.8-10.8) K/uL RBC (4.2-5.4) M/uL Hgb (12.0-16.0) g/dL Hct (37-47) % MCV (80-100) fL MCH (25-34) pg MCHC (32-36) g/dL RDW Std Deviation (36.4-46.3) fL RDW Coeff of Juan (11.5-14.5) % Plt Count (130-400) K/uL MPV (7.4-10.4) fL Immature Gran % (Auto) % Neut % (Auto) % Lymph % (Auto) % [place] % (Auto) % Eos % (Auto) % Baso % (Auto) % Immature Gran # (Auto) (0.00-0.02) K/uL Neut # (Auto) (1.4-6.5) K/uL Lymph # (Auto) (1.2-3.4) K/uL [place] # (Auto) (0.11-0.59) K/uL Eos # (Auto) (0-0.5) K/uL Baso # (Auto) (0-0.2) K/uL VBG pH (7.36-7.41) VBG pCO2 (38-50) mmHg VBG pO2 mmHg VBG HCO3 mmol/L VBG O2 Saturation % VBG Base Excess mEq/L Barometric Pressure mm/Hg Sodium 137 (136-145) mmol/L Potassium 3.9 (3.5-5.1) mmol/L Chloride 111 H (98-107) mmol/L Carbon Dioxide 12 L (21-32) mmol/L Anion Gap 14.0 H (3-11) BUN 11 (7-18) mg/dl Creatinine 0.88 (0.6-1.2) mg/dl Est Cr Clr Drug Dosing 90.7 ml/min Est GFR ( Amer) 86.3 Est GFR (Non-Af Amer) 74.5 BUN/Creatinine Ratio 13.0 (10-20) Glucose 199 H (70-99) mg/dl POC Glucose 247 H 204 H (70-99) Calcium 9.0 (8.5-10.1) mg/dl Phosphorus (2.5-4.9) mg/dl Magnesium (1.8-2.4) mg/dl Free T4 (0.8-1.6) ng/dl Acetaminophen (10-30) ug/ml Hepatitis A IgM Ab (NON-REACTIVE) Hep Bs Antigen (Neg) Hep B Core IgM Ab (NON-REACTIVE) Hepatitis C Antibody (Neg) Influenza Type A (PCR) (Neg) Influenza Type B (PCR) (Neg) 04/19/19 04/19/19 04/19/19 Range/Units 14:26 12:30 11:15 WBC (4.8-10.8) K/uL RBC (4.2-5.4) M/uL Hgb (12.0-16.0) g/dL Hct (37-47) % MCV (80-100) fL MCH (25-34) pg MCHC (32-36) g/dL RDW Std Deviation (36.4-46.3) fL RDW Coeff of Juan (11.5-14.5) % Plt Count (130-400) K/uL MPV (7.4-10.4) fL Immature Gran % (Auto) % Neut % (Auto) % Lymph % (Auto) % [place] % (Auto) % Eos % (Auto) % Baso % (Auto) % Immature Gran # (Auto) (0.00-0.02) K/uL Neut # (Auto) (1.4-6.5) K/uL Lymph # (Auto) (1.2-3.4) K/uL [place] # (Auto) (0.11-0.59) K/uL Eos # (Auto) (0-0.5) K/uL Baso # (Auto) (0-0.2) K/uL VBG pH (7.36-7.41) VBG pCO2 (38-50) mmHg VBG pO2 mmHg VBG HCO3 mmol/L VBG O2 Saturation % VBG Base Excess mEq/L Barometric Pressure mm/Hg Sodium (136-145) mmol/L Potassium (3.5-5.1) mmol/L Chloride (98-107) mmol/L Carbon Dioxide (21-32) mmol/L Anion Gap (3-11) BUN (7-18) mg/dl Creatinine (0.6-1.2) mg/dl Est Cr Clr Drug Dosing ml/min Est GFR ( Amer) Est GFR (Non-Af Amer) BUN/Creatinine Ratio (10-20) Glucose (70-99) mg/dl POC Glucose 232 H 241 H (70-99) Calcium (8.5-10.1) mg/dl Phosphorus (2.5-4.9) mg/dl Magnesium (1.8-2.4) mg/dl Free T4 (0.8-1.6) ng/dl Acetaminophen (10-30) ug/ml Hepatitis A IgM Ab (NON-REACTIVE) Hep Bs Antigen (Neg) Hep B Core IgM Ab (NON-REACTIVE) Hepatitis C Antibody (Neg) Influenza Type A (PCR) Neg for Influ A (Neg) Influenza Type B (PCR) Neg for Influ B (Neg) 04/19/19 04/19/19 04/19/19 Range/Units 10:52 10:52 10:52 WBC (4.8-10.8) K/uL RBC (4.2-5.4) M/uL Hgb (12.0-16.0) g/dL Hct (37-47) % MCV (80-100) fL MCH (25-34) pg MCHC (32-36) g/dL RDW Std Deviation (36.4-46.3) fL RDW Coeff of Juan (11.5-14.5) % Plt Count (130-400) K/uL MPV (7.4-10.4) fL Immature Gran % (Auto) % Neut % (Auto) % Lymph % (Auto) % [place] % (Auto) % Eos % (Auto) % Baso % (Auto) % Immature Gran # (Auto) (0.00-0.02) K/uL Neut # (Auto) (1.4-6.5) K/uL Lymph # (Auto) (1.2-3.4) K/uL [place] # (Auto) (0.11-0.59) K/uL Eos # (Auto) (0-0.5) K/uL Baso # (Auto) (0-0.2) K/uL VBG pH (7.36-7.41) VBG pCO2 (38-50) mmHg VBG pO2 mmHg VBG HCO3 mmol/L VBG O2 Saturation % VBG Base Excess mEq/L Barometric Pressure mm/Hg Sodium (136-145) mmol/L Potassium (3.5-5.1) mmol/L Chloride (98-107) mmol/L Carbon Dioxide (21-32) mmol/L Anion Gap (3-11) BUN (7-18) mg/dl Creatinine (0.6-1.2) mg/dl Est Cr Clr Drug Dosing ml/min Est GFR ( Amer) Est GFR (Non-Af Amer) BUN/Creatinine Ratio (10-20) Glucose (70-99) mg/dl POC Glucose (70-99) Calcium (8.5-10.1) mg/dl Phosphorus (2.5-4.9) mg/dl Magnesium (1.8-2.4) mg/dl Free T4 1.18 (0.8-1.6) ng/dl Acetaminophen (10-30) ug/ml Hepatitis A IgM Ab NON-REACTIVE (NON-REACTIVE) Hep Bs Antigen Neg (Neg) Hep B Core IgM Ab NON-REACTIVE (NON-REACTIVE) Hepatitis C Antibody Neg (Neg) Influenza Type A (PCR) (Neg) Influenza Type B (PCR) (Neg) 04/19/19 Range/Units 10:52 WBC (4.8-10.8) K/uL RBC (4.2-5.4) M/uL Hgb (12.0-16.0) g/dL Hct (37-47) % MCV (80-100) fL MCH (25-34) pg MCHC (32-36) g/dL RDW Std Deviation (36.4-46.3) fL RDW Coeff of Juan (11.5-14.5) % Plt Count (130-400) K/uL MPV (7.4-10.4) fL Immature Gran % (Auto) % Neut % (Auto) % Lymph % (Auto) % [place] % (Auto) % Eos % (Auto) % Baso % (Auto) % Immature Gran # (Auto) (0.00-0.02) K/uL Neut # (Auto) (1.4-6.5) K/uL Lymph # (Auto) (1.2-3.4) K/uL [place] # (Auto) (0.11-0.59) K/uL Eos # (Auto) (0-0.5) K/uL Baso # (Auto) (0-0.2) K/uL VBG pH (7.36-7.41) VBG pCO2 (38-50) mmHg VBG pO2 mmHg VBG HCO3 mmol/L VBG O2 Saturation % VBG Base Excess mEq/L Barometric Pressure mm/Hg Sodium (136-145) mmol/L Potassium (3.5-5.1) mmol/L Chloride (98-107) mmol/L Carbon Dioxide (21-32) mmol/L Anion Gap (3-11) BUN (7-18) mg/dl Creatinine (0.6-1.2) mg/dl Est Cr Clr Drug Dosing ml/min Est GFR ( Amer) Est GFR (Non-Af Amer) BUN/Creatinine Ratio (10-20) Glucose (70-99) mg/dl POC Glucose (70-99) Calcium (8.5-10.1) mg/dl Phosphorus (2.5-4.9) mg/dl Magnesium (1.8-2.4) mg/dl Free T4 (0.8-1.6) ng/dl Acetaminophen < 2 L (10-30) ug/ml Hepatitis A IgM Ab (NON-REACTIVE) Hep Bs Antigen (Neg) Hep B Core IgM Ab (NON-REACTIVE) Hepatitis C Antibody (Neg) Influenza Type A (PCR) (Neg) Influenza Type B (PCR) (Neg) Medications Administered Current Inpatient Medications Amitriptyline HCl (Elavil) 25 mg PO HS [facility] Stop: 05/19/19 20:59 Amitriptyline HCl (Elavil) 100 mg PO HS [facility] Stop: 05/19/19 20:59 Buspirone HCl (Buspar) 15 mg PO BID [facility] Stop: 05/19/19 08:59 Last Admin: 04/19/19 09:04 Dose: Not Given Documented by: Dextrose (Dextrose 50%) 25 - 50 ml IV UD PRN; Protocol PRN Reason: Hypoglycemia Protocol Stop: 05/19/19 04:44 Enoxaparin Sodium (Lovenox) 40 mg SQ QAM [facility] Stop: 05/19/19 10:59 Last Admin: 04/20/19 07:31 Dose: 40 mg Documented by: Gabapentin (Neurontin) 800 mg PO QID [facility] Stop: 05/19/19 08:59 Last Admin: 04/19/19 09:04 Dose: Not Given Documented by: Glucagon (Glucagen) 1 mg IM UD PRN; Protocol PRN Reason: Hypoglycemia Protocol Stop: 05/19/19 04:44 Glucose (Glucose 40%) 15 - 30 gm PO UD PRN; Protocol PRN Reason: Hypoglycemia Protocol Stop: 05/19/19 04:44 Glucose (Dex4 Glucose) 4 - 8 tabs PO UD PRN; Protocol PRN Reason: Hypoglycemia Protocol Stop: 05/19/19 04:44 Hydrocortisone (Cortef) 80 mg PO QAM [facility] Stop: 05/19/19 04:59 Last Admin: 04/20/19 07:31 Dose: 80 mg Documented by: Azithromycin 500 mg/ Dextrose 255 mls @ 125 mls/hr IV Q24H [facility] Stop: 04/26/19 05:59 Last Infusion: 04/20/19 08:27 Dose: Infused Documented by: Insulin Human Regular 250 (units/ Sodium Chloride) 250 mls @ 2.6 mls/hr IV .Q24H [facility]; Protocol Stop: 05/19/19 04:44 Last Titration: 04/20/19 07:07 Dose: 2.6 units/hr, 2.6 mls/hr Documented by: Potassium Phosphate 21 mmol/ (Sodium Chloride) 507 mls @ 88 mls/hr IV 0700 ONE Stop: 04/20/19 12:45 Last Admin: 04/20/19 07:31 Dose: 88 mls/hr Documented by: Insulin Aspart (Novolog Flexpen) 0 units SC ACHS [facility] Stop: 05/19/19 07:29 Last Admin: 04/20/19 07:33 Dose: Not Given Documented by: Insulin Aspart (Novolog Flexpen) 0 units SC ACHS [facility] Stop: 05/20/19 16:29 Insulin Glargine (Lantus Solostar Pen) 0 units SC Q12H [facility]; Protocol Stop: 05/20/19 20:59 Levothyroxine Sodium (Synthroid) 100 mcg PO DAILYBB [facility] Stop: 05/19/19 06:29 Last Admin: 04/20/19 06:09 Dose: 100 mcg Documented by: Miscellaneous (Carbohydrates For Hypoglycemia) 15 - 30 gm PO UD PRN PRN Reason: Hypoglycemia Treatment Stop: 05/19/19 04:44 Miscellaneous Information (Consult Glycemic Management Pharmacy) 1 ea N/A UD PRN PRN Reason: Consult Stop: 05/19/19 04:29 Miscellaneous Information (Dc Iv Insulin Infusion) 1 ea N/A TODAY@1030 [facility] Stop: 04/20/19 16:30 Ondansetron HCl (Zofran) 4 mg IV Q6H PRN PRN Reason: Nausea Stop: 05/19/19 03:52 Oxycodone HCl (Roxicodone Immediate Rel) 10 mg PO Q8H PRN PRN Reason: Pain Stop: 05/04/19 10:59 Zolpidem Tartrate (Ambien) 10 mg PO HS PRN PRN Reason: Sleep Stop: 05/19/19 03:52 (1) DKA (diabetic ketoacidoses) Diabetes mellitus complication detail: without coma Diabetes mellitus type: other specified (including VICKY) Qualified Code(s): E13.10 - Other specified diabetes mellitus with ketoacidosis without coma
[2019-04-20] MEDS ORDERED: POT PHOSPHATE MONOBASIC W/ SOD TAB PO ONE (11:15)
[2019-04-20] MEDS: ESCITALOPRAM OXALATE 10 MG TAB PO SCH (11:40)
--- NOTE | 2019-04-20 11:44 | Medical Student Progress Note ---
Date of Service April 20, 2019 Assessment & Plan (1) DKA (diabetic ketoacidoses): (1) DKA (diabetic ketoacidoses): Mai Briceño is a 54 y/o F w/ a PMHx of adrenal insufficiency, type 2 diabetes, hyperlipidemia, trigeminal neuralgia, and anxiety who was admitted due to AMS, coordination issues, SOB, and hyperglycemia. CT head unremarkable. CXR showed bilateral infiltrates. Trigger of DKA currently unknown. Could be a combination of home steroids, poorly controlled diabetes, recent change to Empagliflozin, and potential pneumonia. DKA (diabetic ketoacidoses) likley secondary to the exogenous steroid for ?adrenal insufficiency Most recently 04/20, patient BSG 203, AG 11, Na 135, K 4.1, Cl 111, CO2 13, Phosphorus .7. -AG closed, transition from IV insulin drip to SQ insulin -Continue hydration w/ potassium chloride/dextrose/NaCl -Phos .7, replaced and monitor -On discharge - will need to start insulin ? Community Acquired Pneumonia Acute hypoxic respiratory failure Patient undergoing Tx for CAP pneumonia. 04/20 WBC 13.11. Patient continues to be tachypneic. Chest CT concerning for edema vs bilateral infiltrate. Per critical care team, not convinced this is CAP but continuing Abx. On 3 L oxygen NC, sat 95% -IV Ceftriaxone 1,000 mg stopped -Continue IV Azithromycin 500 mg -CPAP/BPAP tried but not tolerated by patient -UCx pending -BCx negative -Sputum culture pending -Neg for Influ A & B ? Adrenal Insufficiency -Reviewing patient's record -Unclear whether this diagnosis has been established -was put on dexamethasone for sometime to treat atypical facial pain and then for concern of adrenal insufficiency has been on hydrocortisone. No official evaluation has been done. -Patient home hydrocortisone dose 40 mg. Patient increased to 50 mg three days prior. Patient now receiving 80 mg stress dose. Decreasing back to home 40 mg. Hypertension -Holding spironolactone 100 mg PO daily LAFB (left anterior fasciular block) PMHx of HTN, EKG on admit showed sinus tachy and LAFB -Monitor for prolonged QTc Diabetes Mellitus Patient treated at home with metformin and recently empagliflozin for blood sugars in the 300s. Empagliflozin can cause DKA so was listed as allergy. Patient says that she was diagnosed only one month ago. Atypical facial pain/?Trigeminal Neuralgia/Headache -Holding oxycodone (reportedly 15 mg daily) -Holding amitriptyline 125 mg daily -Holding gabapentin 800 mg PO QID -Given dilaudid .4 mg q4h prn Hypothyroidism On admission, TSH .273. Free T4 1.18 -Continue home Synthroid Elevated LFTs -Hepatitis panel negative - Abdominal ultrasound showed fatty infiltration of the liver, otherwise negative ADA diet- Anxiety -Holding buspirone 15 mg PO daily, prn alprazolam .5 mg, and escitalopram 10 mg daily Code status: Full code. PT/OT: Deferred on admit. DVT Prophylaxis: Lovenox 40 mg daily and SCDs Disposition: Admitted to ICU. Critically ill. Diabetes mellitus complication detail: without coma Diabetes mellitus type: other specified (including VICKY) Qualified Code(s): E13.10 - Other specified diabetes mellitus with ketoacidosis without coma Supervising Attestation Medical student Supervision Note: I independently interviewed and examined the patient and verified the franklin history and physical, reviewed labs and image studies, discussed the case with sven Ramos and agree with the findings and care plan. Alert today. family at bedside. o/e - no distress heart - r/r/r lungs - cta, b/l. DKA - anion gap closed - switched to SQ insulin hypoxic respiratory failure - on oxymask follow. Subjective Mai Briceño is a 54 y/o F with a PMHx significant for adrenal insufficiency, T2DM, hyperlipidemia, trigeminal neuralgia, and anxiety. She is currently in the ICU receiving treatment for DKA. This morning, AG is 11, BSG 203, This morning, patient reports that she is doing better but is very fatigued with poor sleep. Reports that she has a throbbing headache and is concerned about not receiving enough pain medication. Patient oftentimes got lost in thought and had trouble answering questions. H&P limited due to patient requesting that I leave and we do everything later. Reports KIMBALL and some nausea. Does not report vomiting, fever, chills, abdominal pain, SOB, or CP. Review of Systems Review of Systems: All systems reviewed & are unremarkable except as noted in HPI & below Physical Exam Constitutional: + ill appearing and + diaphoretic; + uncomfortable Respiratory: + tachypneic Auscultation: + diminished lung sounds Cardiovascular: Rate/Rhythm: regular rhythm and + tachycardic Heart Sounds: normal S1 and normal S2; no murmur Gastrointestinal (Abdomen): Inspection/Auscultation: normal bowel sounds Percussion/Palpation: abdomen nontender Results & Data Vital Signs (Past 12 Hours) Vital Signs Temp Pulse Resp BP Pulse Ox 04/20/19 08:01 106 H 48 H 95 04/20/19 08:00 36.4 C L 105 H 44 H 133/89 95 04/20/19 07:01 107 H 23 93 04/20/19 07:00 108 H 34 H 131/84 91 04/20/19 04:01 37.1 C 114 H 24 137/82 90 04/20/19 03:00 109 H 48 H 155/98 H 90 04/20/19 02:00 111 H 22 140/81 90 04/20/19 01:00 110 H 18 135/92 92 04/20/19 00:00 36.5 C 112 H 37 H 152/91 H 93
[2019-04-20] MEDS ORDERED: SODIUM CHLORIDE 0.65% NA SOLN 45 ML (OCEAN) ONE (11:58)
[2019-04-20] MEDS: OXYCODONE HCL IR 5 MG TAB (IMMEDIATE RELEASE) PO PRN ×2 (12:06→21:01)
[2019-04-20] MEDS: SPIRONOLACTONE 100 MG TAB PO SCH (12:06)
[2019-04-20] MEDS: GABAPENTIN 800 MG TAB PO SCH ×3 (12:07→20:26)
--- NOTE | 2019-04-20 12:34 | Billing Data ---
Coding Level of Care Code 03325 Subseq Hosp Care Lvl 3
--- NOTE | 2019-04-20 15:34 | Pharmacy Report ---
Pharmacy Glycemic Short Note 2 - Date of Service April 20, 2019 - Glycemic Short BSG Results (Last 24 hours): 04/19/19 04/19/19 04/19/19 15:58 16:37 20:33 Glucose 199 H POC Glucose 204 H 247 H 04/20/19 04/20/19 04/20/19 00:11 00:16 01:40 Glucose 162 H POC Glucose 156 H 182 H 04/20/19 04/20/19 04/20/19 02:34 03:35 04:28 Glucose POC Glucose 191 H 190 H 198 H 04/20/19 04/20/19 04/20/19 04:40 06:12 08:25 Glucose 192 H POC Glucose 235 H 225 H 04/20/19 04/20/19 04/20/19 10:17 11:20 12:34 Glucose POC Glucose 241 H 203 H 166 H 04/20/19 04/20/19 13:28 14:26 Glucose POC Glucose 158 H 148 H OUTPATIENT ANTIDIABETIC REGIMEN: * Jardiance 10mg QD * Metformin 500mg BID * A1c:10.8% ASSESSMENT: 04/20: * Patient anion gap closed this morning, CO2 improved. Discussed with provider and nurse, and we will attempt to transition off of the drip * Dextrose infusion discontinued this morning and insulin infusion goal range lowered to assist in drip transition * Patient is ordered a diet, but per nurse has not wanted to eat breakfast or lunch * Will give a little over a full weight based stress of 2 this morning and a la ntus scale this evening based on BSG * Discussed with nurse to turn insulin infusion off @ 1630 if BSG remains < 180. If BSG > 180, RN should contact pharmacy to extend insulin infusion and adjust SQ orders. 04/19 * Patient presenting in DKA, continues to be acidotic. Discussed possible association of ketoacidosis with SGLT-2 with provider. IV fluids of D5W1/2NSS +20 kcl continue to run at 200mL/hr. Goal range remains 150-250, with insulin infusion currently stable at 3.6 units/hr. Patient ordered hydrocortisone 80mg QD (home medication at increased dose). Discussed with provider team and will plan to continue dextrose containing fluids and insulin drip at this time pending resolution of acidosis. PLAN FOR INPATIENT GLYCEMIC CONTROL: * Hold outpatient oral diabetes medications * Basal insulin * Continue insulin infusion until 1630 * Goal Range 110 - 180 mg/dl * Lantus 35 units X 1 this morning * Lantus scale this evening (8 units if BSG 140 or less; 15 units if BSG > 140 ) * Correctional Insulin: Novolog Correction per scale ACHS Goal Range: Low 110 mg/dL - High 140 mg/dL Correction Factor: 25 mg/dL/unit * Prandial insulin: Per carb ratio of 1 unit per 9 grams CHO consumed Thank you. PLAN FOR DISCHARGE: * pending
[2019-04-20] MEDS: BusPIRone 15 MG TAB PO SCH (20:25)
[2019-04-20] MEDS: AMITRIPTYLINE HCL 100 MG TAB PO SCH (20:26)
[2019-04-20] MEDS: AMITRIPTYLINE HCL 25 MG TAB PO SCH (21:01)
[2019-04-21] MEDS: INSULIN ASPART 100 UNITS/ML 3 ML PEN SC SCH ×6 (00:56→20:47)
[2019-04-21 04:46] LABS: Basophils # (auto) 0.05 K/uL (0-0.2); Basophils % (auto) 0.4 %; Eosinophils # (auto) 0.15 K/uL (0-0.5); Eosinophils % (auto) 1.3 %; Hematocrit (blood only) 41.4 % (37-47); Hemoglobin 14.6 g/dL (12.0-16.0); Immature Granulocytes # (auto) 0.42 K/uL (0.00-0.02); Immature Granulocytes % (auto) 3.7 %; Lymphocytes # (auto) 1.72 K/uL (1.2-3.4); Lymphocytes % (auto) 15.2 %; Mean Corpuscular Hemoglobin 36.6 pg (25-34); Mean Corpuscular Hgb Conc 35.3 g/dL (32-36); Mean Corpuscular Volume 103.8 fL (80-100); Mean Platelet Volume 10.5 fL (7.4-10.4); Monocytes # (auto) 0.73 K/uL (0.11-0.59); Monocytes % (auto) 6.4 %; Neutrophils # (auto) 8.27 K/uL (1.4-6.5); Platelet Count 153 K/uL (130-400); RDW Coefficient of Variation 14.3 % (11.5-14.5); RDW Standard Deviation 54.7 fL (36.4-46.3); Red Blood Count 3.99 M/uL (4.2-5.4); White Blood Count 11.34 K/uL (4.8-10.8)
[2019-04-21 04:54] LABS: Base Excess VBG -8.3 mEq/L; Oxygen Saturation VBG 88.5 %; pH VBG 7.39 (7.36-7.41)
[2019-04-21 05:18] LABS: Albumin Globulin Ratio 0.5 (0.9-2); Albumin Level 2.2 gm/dl (3.4-5.0); BUN Creatinine Ratio 21.5 (10-20); Bilirubin,Total 0.5 mg/dl (0.2-1); Calcium 9.2 mg/dl (8.5-10.1); Creatinine Clr Calc Pharmacy 145.2 ml/min; Est GFR (African American) 123.2; Est GFR (Non-African American) 106.3; Globulin 4.2 gm/dl (2.5-4.0); Phosphorus 1.7 mg/dl (2.5-4.9); Total Protein 6.4 gm/dl (6.4-8.2)
[2019-04-21] MEDS: AZITHROMYCIN 500 MG in DEXTROSE 5% 250 ML IV SCH (05:39)
[2019-04-21] MEDS: LEVOTHYROXINE SODIUM 100 MCG TABLET PO SCH (05:40)
[2019-04-21] MEDS ORDERED: POTASSIUM PHOS 3 MMOL/1 ML INFUSION IV STA (06:01)
[2019-04-21] MEDS ORDERED: POTASSIUM CHLORIDE 20 MEQ TABCR PO ONE (06:05)
[2019-04-21] MEDS ORDERED: ONDANSETRON INJ 2 MG/ML 2 ML VIAL IV ONE (06:09)
[2019-04-21] MEDS ORDERED: POTASSIUM PHOSPHATE 21 MMOL in SODIUM CHLORIDE 0.9% 500 ML IV ONE (06:15)
[2019-04-21] MEDS: BusPIRone 15 MG TAB PO SCH ×2 (07:20→20:56)
[2019-04-21] MEDS: HYDROCORTISONE 10 MG TAB PO SCH (07:20)
[2019-04-21] MEDS: SPIRONOLACTONE 100 MG TAB PO SCH (07:20)
[2019-04-21] MEDS: GABAPENTIN 800 MG TAB PO SCH ×4 (07:21→20:55)
[2019-04-21] MEDS: ENOXAPARIN INJ 40 MG/0.4 ML SYR SQ SCH (07:22)
[2019-04-21] MEDS: OXYCODONE HCL IR 5 MG TAB (IMMEDIATE RELEASE) PO PRN ×2 (07:39→20:54)
[2019-04-21] MEDS ORDERED: INSULIN GLARGINE SOLOSTAR 100 UNITS/ML 3 ML PEN SC ONE (07:45)
[2019-04-21] MEDS: ESCITALOPRAM OXALATE 10 MG TAB PO SCH (07:47)
--- NOTE | 2019-04-21 08:04 | XRay Report ---
SINGLE VIEW CHEST CLINICAL HISTORY: Dyspnea. FINDINGS: An AP, portable, upright chest radiograph is compared to study dated 04/20/2019 and correla thiago with chest CT dated 04/19/2019. The examination is degraded by portable technique and patient rot ation. The heart is top normal for projection. There are multifocal bilateral hazy airspace opacities , right greater than left. There is elevation of right hemidiaphragm. No large pleural effusion or pn eumothorax is seen. The skeletal structures are osteopenic. The bony thorax is grossly intact. IMPRESSION: Hazy bilateral airspace opacities are similar in appearance to yesterday. Top different ial considerations remain a nonspecific infectious/inflammatory pneumonitis and/or pulmonary edema. C linical correlation will be required. Electronically signed by: Boni Almeida M.D. 04/21/2019 8:03 AM
[2019-04-21] MEDS ORDERED: INSULIN GLARGINE SOLOSTAR 100 UNITS/ML 3 ML PEN SC SCH (09:00)
[2019-04-21 09:05] LABS: Codeine Urine NEGATIVE NG/ML (CUTOFF=50); Hydrocodone Urine NEGATIVE NG/ML (CUTOFF=50); Hydromor Urine NEGATIVE NG/ML (CUTOFF=50); Morphine Urine NEGATIVE NG/ML (CUTOFF=50); Norhydrocodone Conf Ur NEGATIVE NG/ML (CUTOFF=50); Noroxycodone Urine 334 NG/ML (CUTOFF=50); Oxycodone Urine 407 NG/ML (CUTOFF=50); Oxymorph Urine 383 NG/ML (CUTOFF=50)
--- NOTE | 2019-04-21 09:05 | Critical Care Progress Note ---
Date of Service April 21, 2019 Assessment & Plan (1) DKA (diabetic ketoacidoses): 54-year-old female was admitted on April 19, 2019 for SOB, coordination issues, and elevated glucose. 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 Pre-admit concerns with coordination and fatigue. CT head non-acute. PMH trigeminal neuralgia and anxiety. UDS positive for opiates. Subjectively mental status seems a bit improved. Restarted her home medications with some modifications of her oxycodone prn and Xanax prn. - Concerns about outpatient high doses of Ambien + Xanax + oxycodone. Would benefit from direct indication for these medications and review of dosing. Pulm: No known underlying issues. Tachypnea improving, on minimal supplemental oxygen. CT chest concerning for edema vs bilateral infiltrate. Serial pCXR concerning for R > L patchy opacities. See ID below. CVS: No known acute issues. PMH HTN. Admit EKG sinus tach and LAFB. QTc 427- 441, but doing serial EKGs. ID: [id number]. WBC down to 11. Lactate and procalcitonin okay. BCx and UCx no growth final. Influenza negative. See CXR. 19Nov started antibiotics, presently on azithromycin (planned 5-day course), to cover for an atypical CAP. Endo: - PMH diabetes (admit HbA1c 10.8). At home was on empagliflozin and metformin. On arrival, in DKA with unclear cause, though empagliflozin can do this (so listed as an allergy). Presently still mild AG (but do not suspect RTA). Off IVF and insulin drip, on lantus and novolog. - PMH adrenal insufficiency (? patient self-diagnosed and treating). In hospital, briefly on 80 mg stress dose. Will decrease back to home 40 mg. Needs ongoing PCP and endocrinology f/u to define this. - PMH hypothyroid, at home on levothyroxine. Admit TSH 0.27, T4 normal. Renal/Lytes: Initial Cr 1.7, quickly resolved after IVF. Held home spironolactone. - Hypophosphatemia: Phos as low as 0.7. Replaced, monitoring. - Hypokalemia: K as low as 3.0, replaced, monitoring. GI: No known underlying issues. Admit LFTs mildly elevated, improving. Tylenol and hepatitis panel negative. Hepatomegaly seen on CT chest. RUQ u/s noted fatty liver. On ADA diet, though poor PO intake and appetite. Encouraging this and control valve technician assisting. If nauseous, recommend reglan prn. Heme: Admit Hb 18.9 (suggests concentrated) and MCV 106. Vit B12 level normal. Repeat Hb around 14-15. DVT prophy: Lovenox 40 q day and SCDs. Skin: No acute issues. Lines: PIV. Code status: Full code. PT/OT: Deferred on admit. Disposition: Stable for downgrade to [facility]. (2) Anxiety: (3) Hypertension: (4) LAFB (left anterior fascicular block): (5) CAP (community acquired pneumonia): (6) Diabetes: (7) Adrenal insufficiency: (8) Trigeminal neuralgia: (9) Hypothyroidism: (10) Elevated LFTs: Supervising Physician Co-Signing Physician Notes Dr. Al was resident physician during care of patient. I separately evaluated patient for franklin portions of the history and the exam. I was present during the critical portion of medical decision making, and I discussed the case with the resident. I generally agree with the findings and plan. Mental status continues to improve, overall patient continues to improve, she still has an anion gap, previous admissions do not demonstrate decreased bicarb so I doubt renal tubular acidosis, patient not eating well, will obtain calorie counts. Will obtain EKG, complete 5 days total therapy for possible Community acquired Pneumonia. Patient stable for downgrade out of ICU. Subjective Spoke with patient this morning. She says overall that she feels better. Still thinks that some use of the oxygen mask helps with her breathing. She denies any focal pains anywhere and asks about her overall clinical status. On further clarification of her medical history, patient says that she was initially started on steroids by her dentist. She says that made her feel better and she has continued on them. She reports that she had a possible addisonian crisis on previous attempts to get off of steroids. She says she has seen endocrinology in [place] and that the overall goal is to wean down her steroid use such that she can go through a dexamethasone suppression test. Yesterday afternoon, spoke with both her outpatient PCP (Dr. Mei) and her inpatient hospitalist (Dr. Barraza). Dr. Mei mentioned that the patient is primarily taken care of by Elissa Davis PA-C. He has not been prescribing her routine controlled substances. He was under the impression that she was being seen by either psychiatry or pain management for this. Per Dr. 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 Apparently the patient may have self-diagnosed herself with adrenal insufficiency and is self-adjusting her doses of hydrocortisone. Also apparently prior attempts for her to see endocrine in [place] and to be weaned off of the steroids (such that she could actually have a dexamethasone suppression test) have been unsuccessful. Review of Systems Review of Systems: Per HPI as above. Physical Exam Physical Exam: General Appearance: Awake, alert & oriented, tachypneic but does not appear in physical distress. Mouth: Moist oral mucous membranes. Poor dentition. CV: +S1S2 borderline but regular tachycardia, no murmur. Pulm: Tachypnea in 20s. Diminished breath sounds throughout (perhaps a bit imp roved from yesterday). Abdomen: +BS, soft, non-tender, mildly distended. Extremities: No pedal edema or calf tenderness. Moving all extremities naturally and easily. Neuro: No gross neuro deficits. No extremity resting or intention tremor. Results & Data Vital Signs (Past 12 Hours) Vital Signs Temp Pulse Resp BP Pulse Ox Pulse Ox 04/21/19 08:01 103 H 37 H 96 04/21/19 08:00 36.5 C 102 H 38 H 132/82 96 04/21/19 07:01 102 H 39 H 96 04/21/19 07:00 102 H 40 H 126/84 96 04/21/19 06:01 106 H 25 H 91 04/21/19 06:00 107 H 27 H 108/68 91 04/21/19 05:01 99 H 47 H 94 04/21/19 05:00 100 H 44 H 128/81 94 04/21/19 04:01 102 H 35 H 93 04/21/19 04:00 37.1 C 102 H 34 H 130/82 93 04/21/19 03:01 105 H 35 H 93 04/21/19 03:00 102 H 42 H 123/73 94 95 04/21/19 02:01 99 H 32 H 93 04/21/19 02:00 91 H 31 H 124/73 93 04/21/19 01:01 97 H 42 H 94 04/21/19 01:00 85 28 H 106/72 94 04/21/19 00:01 98 H 33 H 93 04/21/19 00:00 37.1 C 97 H 31 H 123/80 93 04/20/19 23:01 99 H 27 H 93 04/20/19 23:00 99 H 27 H 113/75 93 04/20/19 22:11 104 H 34 H 120/82 93 04/20/19 22:00 107 H 35 H 120/82 94 Laboratory Results 04/21/19 04/21/19 04/21/19 Range/Units 07:15 04:29 04:29 WBC (4.8-10.8) K/uL RBC (4.2-5.4) M/uL Hgb (12.0-16.0) g/dL Hct (37-47) % MCV (80-100) fL MCH (25-34) pg MCHC (32-36) g/dL RDW Std Deviation (36.4-46.3) fL RDW Coeff of Juan (11.5-14.5) % Plt Count (130-400) K/uL MPV (7.4-10.4) fL Immature Gran % (Auto) % Neut % (Auto) % Lymph % (Auto) % Quay % (Auto) % Eos % (Auto) % Baso % (Auto) % Immature Gran # (Auto) (0.00-0.02) K/uL Neut # (Auto) (1.4-6.5) K/uL Lymph # (Auto) (1.2-3.4) K/uL Quay # (Auto) (0.11-0.59) K/uL Eos # (Auto) (0-0.5) K/uL Baso # (Auto) (0-0.2) K/uL VBG pH 7.39 (7.36-7.41) VBG pCO2 25 L (38-50) mmHg VBG pO2 52 mmHg VBG HCO3 15 mmol/L VBG O2 Saturation 88.5 % VBG Base Excess -8.3 mEq/L Barometric Pressure 737.3 mm/Hg Sodium 138 (136-145) mmol/L Potassium 3.0 L D (3.5-5.1) mmol/L Chloride 110 H (98-107) mmol/L Carbon Dioxide 14 L (21-32) mmol/L Anion Gap 14.0 H (3-11) BUN 12 (7-18) mg/dl Creatinine 0.55 L (0.6-1.2) mg/dl Est Cr Clr Drug Dosing 145.2 ml/min Est GFR ( Amer) 123.2 Est GFR (Non-Af Amer) 106.3 BUN/Creatinine Ratio 21.5 H (10-20) Glucose 141 H (70-99) mg/dl POC Glucose 203 H (70-99) Calcium 9.2 (8.5-10.1) mg/dl Phosphorus 1.7 L D (2.5-4.9) mg/dl Magnesium 2.0 (1.8-2.4) mg/dl Total Bilirubin 0.5 (0.2-1) mg/dl AST 29 (15-37) U/L ALT 42 (12-78) U/L Alkaline Phosphatase 119 H (45-117) U/L Total Protein 6.4 (6.4-8.2) gm/dl Albumin 2.2 L (3.4-5.0) gm/dl Globulin 4.2 H (2.5-4.0) gm/dl Albumin/Globulin Ratio 0.5 L (0.9-2) U Codeine Confrm GC/MS (CUTOFF=50) NG/ML Ur Morphine (GC/MS) (CUTOFF=50) NG/ML Ur Hydrocodone (GC/MS) (CUTOFF=50) NG/ML Ur Norhydrocodone (CUTOFF=50) NG/ML Ur Noroxycodone (CUTOFF=50) NG/ML Urine Oxycodone (GC/MS) (CUTOFF=50) NG/ML U Oxymorphone GC/MS (CUTOFF=50) NG/ML Ur Hydromorphone (GC/MS) (CUTOFF=50) NG/ML 04/21/19 04/21/19 04/20/19 Range/Units 04:29 04:13 23:51 WBC 11.34 H (4.8-10.8) K/uL RBC 3.99 L (4.2-5.4) M/uL Hgb 14.6 (12.0-16.0) g/dL Hct 41.4 (37-47) % MCV 103.8 H (80-100) fL MCH 36.6 H (25-34) pg MCHC 35.3 (32-36) g/dL RDW Std Deviation 54.7 H (36.4-46.3) fL RDW Coeff of Juan 14.3 (11.5-14.5) % Plt Count 153 (130-400) K/uL MPV 10.5 H (7.4-10.4) fL Immature Gran % (Auto) 3.7 % Neut % (Auto) 73.0 % Lymph % (Auto) 15.2 % Quay % (Auto) 6.4 % Eos % (Auto) 1.3 % Baso % (Auto) 0.4 % Immature Gran # (Auto) 0.42 H (0.00-0.02) K/uL Neut # (Auto) 8.27 H (1.4-6.5) K/uL Lymph # (Auto) 1.72 (1.2-3.4) K/uL Quay # (Auto) 0.73 H (0.11-0.59) K/uL Eos # (Auto) 0.15 (0-0.5) K/uL Baso # (Auto) 0.05 (0-0.2) K/uL VBG pH (7.36-7.41) VBG pCO2 (38-50) mmHg VBG pO2 mmHg VBG HCO3 mmol/L VBG O2 Saturation % VBG Base Excess mEq/L Barometric Pressure mm/Hg Sodium (136-145) mmol/L Potassium (3.5-5.1) mmol/L Chloride (98-107) mmol/L Carbon Dioxide (21-32) mmol/L Anion Gap (3-11) BUN (7-18) mg/dl Creatinine (0.6-1.2) mg/dl Est Cr Clr Drug Dosing ml/min Est GFR ( Amer) Est GFR (Non-Af Amer) BUN/Creatinine Ratio (10-20) Glucose (70-99) mg/dl POC Glucose 175 H 160 H (70-99) Calcium (8.5-10.1) mg/dl Phosphorus (2.5-4.9) mg/dl Magnesium (1.8-2.4) mg/dl Total Bilirubin (0.2-1) mg/dl AST (15-37) U/L ALT (12-78) U/L Alkaline Phosphatase (45-117) U/L Total Protein (6.4-8.2) gm/dl Albumin (3.4-5.0) gm/dl Globulin (2.5-4.0) gm/dl Albumin/Globulin Ratio (0.9-2) U Codeine Confrm GC/MS (CUTOFF=50) NG/ML Ur Morphine (GC/MS) (CUTOFF=50) NG/ML Ur Hydrocodone (GC/MS) (CUTOFF=50) NG/ML Ur Norhydrocodone (CUTOFF=50) NG/ML Ur Noroxycodone (CUTOFF=50) NG/ML Urine Oxycodone (GC/MS) (CUTOFF=50) NG/ML U Oxymorphone GC/MS (CUTOFF=50) NG/ML Ur Hydromorphone (GC/MS) (CUTOFF=50) NG/ML 04/20/19 04/20/19 04/20/19 Range/Units 20:22 16:29 15:29 WBC (4.8-10.8) K/uL RBC (4.2-5.4) M/uL Hgb (12.0-16.0) g/dL Hct (37-47) % MCV (80-100) fL MCH (25-34) pg MCHC (32-36) g/dL RDW Std Deviation (36.4-46.3) fL RDW Coeff of Juan (11.5-14.5) % Plt Count (130-400) K/uL MPV (7.4-10.4) fL Immature Gran % (Auto) % Neut % (Auto) % Lymph % (Auto) % Quay % (Auto) % Eos % (Auto) % Baso % (Auto) % Immature Gran # (Auto) (0.00-0.02) K/uL Neut # (Auto) (1.4-6.5) K/uL Lymph # (Auto) (1.2-3.4) K/uL Quay # (Auto) (0.11-0.59) K/uL Eos # (Auto) (0-0.5) K/uL Baso # (Auto) (0-0.2) K/uL VBG pH (7.36-7.41) VBG pCO2 (38-50) mmHg VBG pO2 mmHg VBG HCO3 mmol/L VBG O2 Saturation % VBG Base Excess mEq/L Barometric Pressure mm/Hg Sodium (136-145) mmol/L Potassium (3.5-5.1) mmol/L Chloride (98-107) mmol/L Carbon Dioxide (21-32) mmol/L Anion Gap (3-11) BUN (7-18) mg/dl Creatinine (0.6-1.2) mg/dl Est Cr Clr Drug Dosing ml/min Est GFR ( Amer) Est GFR (Non-Af Amer) BUN/Creatinine Ratio (10-20) Glucose (70-99) mg/dl POC Glucose 143 H 126 H 135 H (70-99) Calcium (8.5-10.1) mg/dl Phosphorus (2.5-4.9) mg/dl Magnesium (1.8-2.4) mg/dl Total Bilirubin (0.2-1) mg/dl AST (15-37) U/L ALT (12-78) U/L Alkaline Phosphatase (45-117) U/L Total Protein (6.4-8.2) gm/dl Albumin (3.4-5.0) gm/dl Globulin (2.5-4.0) gm/dl Albumin/Globulin Ratio (0.9-2) U Codeine Confrm GC/MS (CUTOFF=50) NG/ML Ur Morphine (GC/MS) (CUTOFF=50) NG/ML Ur Hydrocodone (GC/MS) (CUTOFF=50) NG/ML Ur Norhydrocodone (CUTOFF=50) NG/ML Ur Noroxycodone (CUTOFF=50) NG/ML Urine Oxycodone (GC/MS) (CUTOFF=50) NG/ML U Oxymorphone GC/MS (CUTOFF=50) NG/ML Ur Hydromorphone (GC/MS) (CUTOFF=50) NG/ML 04/20/19 04/20/19 04/20/19 Range/Units 14:26 13:28 12:34 WBC (4.8-10.8) K/uL RBC (4.2-5.4) M/uL Hgb (12.0-16.0) g/dL Hct (37-47) % MCV (80-100) fL MCH (25-34) pg MCHC (32-36) g/dL RDW Std Deviation (36.4-46.3) fL RDW Coeff of Juan (11.5-14.5) % Plt Count (130-400) K/uL MPV (7.4-10.4) fL Immature Gran % (Auto) % Neut % (Auto) % Lymph % (Auto) % Quay % (Auto) % Eos % (Auto) % Baso % (Auto) % Immature Gran # (Auto) (0.00-0.02) K/uL Neut # (Auto) (1.4-6.5) K/uL Lymph # (Auto) (1.2-3.4) K/uL Quay # (Auto) (0.11-0.59) K/uL Eos # (Auto) (0-0.5) K/uL Baso # (Auto) (0-0.2) K/uL VBG pH (7.36-7.41) VBG pCO2 (38-50) mmHg VBG pO2 mmHg VBG HCO3 mmol/L VBG O2 Saturation % VBG Base Excess mEq/L Barometric Pressure mm/Hg Sodium (136-145) mmol/L Potassium (3.5-5.1) mmol/L Chloride (98-107) mmol/L Carbon Dioxide (21-32) mmol/L Anion Gap (3-11) BUN (7-18) mg/dl Creatinine (0.6-1.2) mg/dl Est Cr Clr Drug Dosing ml/min Est GFR ( Amer) Est GFR (Non-Af Amer) BUN/Creatinine Ratio (10-20) Glucose (70-99) mg/dl POC Glucose 148 H 158 H 166 H (70-99) Calcium (8.5-10.1) mg/dl Phosphorus (2.5-4.9) mg/dl Magnesium (1.8-2.4) mg/dl Total Bilirubin (0.2-1) mg/dl AST (15-37) U/L ALT (12-78) U/L Alkaline Phosphatase (45-117) U/L Total Protein (6.4-8.2) gm/dl Albumin (3.4-5.0) gm/dl Globulin (2.5-4.0) gm/dl Albumin/Globulin Ratio (0.9-2) U Codeine Confrm GC/MS (CUTOFF=50) NG/ML Ur Morphine (GC/MS) (CUTOFF=50) NG/ML Ur Hydrocodone (GC/MS) (CUTOFF=50) NG/ML Ur Norhydrocodone (CUTOFF=50) NG/ML Ur Noroxycodone (CUTOFF=50) NG/ML Urine Oxycodone (GC/MS) (CUTOFF=50) NG/ML U Oxymorphone GC/MS (CUTOFF=50) NG/ML Ur Hydromorphone (GC/MS) (CUTOFF=50) NG/ML 04/20/19 04/19/19 Range/Units 11:20 08:50 WBC (4.8-10.8) K/uL RBC (4.2-5.4) M/uL Hgb (12.0-16.0) g/dL Hct (37-47) % MCV (80-100) fL MCH (25-34) pg MCHC (32-36) g/dL RDW Std Deviation (36.4-46.3) fL RDW Coeff of Juan (11.5-14.5) % Plt Count (130-400) K/uL MPV (7.4-10.4) fL Immature Gran % (Auto) % Neut % (Auto) % Lymph % (Auto) % Quay % (Auto) % Eos % (Auto) % Baso % (Auto) % Immature Gran # (Auto) (0.00-0.02) K/uL Neut # (Auto) (1.4-6.5) K/uL Lymph # (Auto) (1.2-3.4) K/uL Quay # (Auto) (0.11-0.59) K/uL Eos # (Auto) (0-0.5) K/uL Baso # (Auto) (0-0.2) K/uL VBG pH (7.36-7.41) VBG pCO2 (38-50) mmHg VBG pO2 mmHg VBG HCO3 mmol/L VBG O2 Saturation % VBG Base Excess mEq/L Barometric Pressure mm/Hg Sodium (136-145) mmol/L Potassium (3.5-5.1) mmol/L Chloride (98-107) mmol/L Carbon Dioxide (21-32) mmol/L Anion Gap (3-11) BUN (7-18) mg/dl Creatinine (0.6-1.2) mg/dl Est Cr Clr Drug Dosing ml/min Est GFR ( Amer) Est GFR (Non-Af Amer) BUN/Creatinine Ratio (10-20) Glucose (70-99) mg/dl POC Glucose 203 H (70-99) Calcium (8.5-10.1) mg/dl Phosphorus (2.5-4.9) mg/dl Magnesium (1.8-2.4) mg/dl Total Bilirubin (0.2-1) mg/dl AST (15-37) U/L ALT (12-78) U/L Alkaline Phosphatase (45-117) U/L Total Protein (6.4-8.2) gm/dl Albumin (3.4-5.0) gm/dl Globulin (2.5-4.0) gm/dl Albumin/Globulin Ratio (0.9-2) U Codeine Confrm GC/MS NEGATIVE (CUTOFF=50) NG/ML Ur Morphine (GC/MS) NEGATIVE (CUTOFF=50) NG/ML Ur Hydrocodone (GC/MS) NEGATIVE (CUTOFF=50) NG/ML Ur Norhydrocodone NEGATIVE (CUTOFF=50) NG/ML Ur Noroxycodone 334 A (CUTOFF=50) NG/ML Urine Oxycodone (GC/MS) 407 A (CUTOFF=50) NG/ML U Oxymorphone GC/MS 383 A (CUTOFF=50) NG/ML Ur Hydromorphone (GC/MS) NEGATIVE (CUTOFF=50) NG/ML Medications Administered Current Inpatient Medications Alprazolam (Xanax) 0.5 mg PO DAILY PRN PRN Reason: Anxiety Stop: 05/20/19 10:59 Last Admin: 04/20/19 12:06 Dose: 0.5 mg Documented by: Amitriptyline HCl (Elavil) 25 mg PO [facility] Stop: 05/19/19 20:59 Last Admin: 04/20/19 21:01 Dose: 25 mg Documented by: Amitriptyline HCl (Elavil) 100 mg PO [facility] Stop: 05/19/19 20:59 Last Admin: 04/20/19 20:26 Dose: 100 mg Documented by: Buspirone HCl (Buspar) 15 mg PO BID COUNTS INCLUDE 234 BEDS AT [facility] Stop: 05/19/19 08:59 Last Admin: 04/21/19 07:20 Dose: 15 mg Documented by: Dextrose (Dextrose 50%) 25 - 50 ml IV UD PRN; Protocol PRN Reason: Hypoglycemia Protocol Stop: 05/19/19 04:44 Enoxaparin Sodium (Lovenox) 40 mg SQ QAM MIGUEL ANGEL Stop: 05/19/19 10:59 Last Admin: 04/21/19 07:22 Dose: 40 mg Documented by: Escitalopram Oxalate (Lexapro Tab) 10 mg PO DAILY COUNTS INCLUDE 234 BEDS AT THE [facility] Stop: 05/20/19 10:59 Last Admin: 04/21/19 07:47 Dose: 10 mg Documented by: Gabapentin (Neurontin) 800 mg PO QID MIGUEL ANGEL Stop: 05/19/19 08:59 Last Admin: 04/21/19 07:21 Dose: 800 mg Documented by: Glucagon (Glucagen) 1 mg IM UD PRN; Protocol PRN Reason: Hypoglycemia Protocol Stop: 05/19/19 04:44 Glucose (Glucose 40%) 15 - 30 gm PO UD PRN; Protocol PRN Reason: Hypoglycemia Protocol Stop: 05/19/19 04:44 Glucose (Dex4 Glucose) 4 - 8 tabs PO UD PRN; Protocol PRN Reason: Hypoglycemia Protocol Stop: 05/19/19 04:44 Hydrocortisone (Cortef) 40 mg PO QAM COUNTS INCLUDE 234 BEDS AT THE [facility] Stop: 05/21/19 08:59 Last Admin: 04/21/19 07:20 Dose: 40 mg Documented by: Potassium Phosphate 21 mmol/ (Sodium Chloride) 507 mls @ 88 mls/hr IV ONE ONE Stop: 04/21/19 12:00 Last Admin: 04/21/19 06:25 Dose: 88 mls/hr Documented by: Insulin Aspart (Novolog Flexpen) 0 units SC ACHS COUNTS INCLUDE 234 BEDS AT THE [facility] Stop: 05/20/19 16:29 Last Admin: 04/21/19 07:19 Dose: 3 units Documented by: Insulin Glargine (Lantus Solostar Pen) 30 units SC DAILY COUNTS INCLUDE 234 BEDS AT THE [facility] Stop: 05/21/19 08:59 Last Admin: 04/21/19 07:21 Dose: 30 units Documented by: Levothyroxine Sodium (Synthroid) 100 mcg PO DAILYBB MIGUEL ANGEL Stop: 05/19/19 06:29 Last Admin: 04/21/19 05:40 Dose: 100 mcg Documented by: Miscellaneous (Carbohydrates For Hypoglycemia) 15 - 30 gm PO UD PRN PRN Reason: Hypoglycemia Treatment Stop: 05/19/19 04:44 Miscellaneous Information (Consult Glycemic Management Pharmacy) 1 ea N/A UD PRN PRN Reason: Consult Stop: 05/19/19 04:29 Oxycodone HCl (Roxicodone Immediate Rel) 10 mg PO Q8H PRN PRN Reason: Pain Stop: 05/04/19 10:59 Last Admin: 04/21/19 07:39 Dose: 10 mg Documented by: Spironolactone (Aldactone) 100 mg PO QAM MIGUEL ANGEL Stop: 05/20/19 11:14 Last Admin: 04/21/19 07:20 Dose: 100 mg Documented by: Zolpidem Tartrate (Ambien) 10 mg PO HS PRN PRN Reason: Sleep Stop: 05/19/19 03:52 Resident Activity Tracking Resident Involvement: Resident Care Provided Care Provided: Adult Hospital Medicine (ICU) (1) DKA (diabetic ketoacidoses) Diabetes mellitus complication detail: without coma Diabetes mellitus type: other specified (including VICKY) Qualified Code(s): E13.10 - Other specified diabetes mellitus with ketoacidosis without coma
--- NOTE | 2019-04-21 09:21 | Billing Data ---
Coding Level of Care Code 74661 Subseq Hosp Care Lvl 2
--- NOTE | 2019-04-21 10:52 | Medical Student Progress Note ---
Date of Service April 21, 2019 Assessment & Plan (1) DKA (diabetic ketoacidoses): Mai Briceño is a 54 y/o F w/ a PMHx of type 2 diabetes, hyperlipidemia, trigeminal neuralgia, anxiety and questionable adrenal insufficiency who was admitted due to AMS, coordination issues, SOB, and hyperglycemia. CT head unremarkable. CXR showed bilateral infiltrates. DKA (diabetic ketoacidoses) likley secondary to the exogenous steroid for ?adrenal insufficiency -AG closed yesterday, -today 04/21 given 30 units insulin glargine this morning and insulin aspart at meals -Phos 1.7 today. Phos .7 yesterday, replaced and continue monitoring -Given patient status, step down from ICU to PCU/Telemetry Community Acquired Pneumonia Acute hypoxic respiratory failure Patient continuing Azithromycin PO for CAP pneumonia. 04/21 WBC 14.6. Patient continues to be tachypneic. CXR today 04/21 shows hazy bilateral airspace opacities (same as yesterday) Per critical care team, not convinced this is CAP but continuing Abx. On room air, sat 94% -BCx negative -Sputum culture ordered, not yet obtained -Neg for Influ A & B -Finish Azithromycin 500 mg PO for 5 day course ? Adrenal Insufficiency -Reviewing patient's record -Unclear whether this diagnosis has been established -was put on dexamethasone for sometime to treat atypical facial pain and then for concern of adrenal insufficiency has been on hydrocortisone. No official evaluation has been done. -on 40mgs hydrocortisone at home. Patient given 80 mg stress dose in ICU. -Dropped dose back to home dose 40 mg today. Hypertension BP today 132/84. -Restarting spironolactone 100 mg PO daily Diabetes Mellitus Patient treated at home with metformin and recently empagliflozin for blood sugars in the 300s. Empagliflozin can cause DKA so was listed as allergy. Patient says that she was diagnosed only one month ago. -will go home on insulin Atypical facial pain/?Trigeminal Neuralgia/Headache -Holding oxycodone (reportedly 15 mg daily) -Restarted amitriptyline 125 mg daily -Restarted gabapentin 800 mg PO QID -Given dilaudid .4 mg q4h prn Hypothyroidism On admission, TSH .273. Free T4 1.18 -Continue home Synthroid 100 mcg PO Elevated LFTs -Hepatitis panel negative - Abdominal ultrasound showed fatty infiltration of the liver, otherwise ne gative ADA diet- Anxiety -Restarted buspirone 15 mg PO daily, prn alprazolam .5 mg, and escitalopram 10 mg daily Code status: Full code. PT/OT: Deferred on admit. DVT Prophylaxis: Lovenox 40 mg daily and SCDs Disposition: Transferred from ICU to PCU/Telemetry. Diabetes mellitus complication detail: without coma Diabetes mellitus type: other specified (including VICKY) Qualified Code(s): E13.10 - Other specified diabetes mellitus with ketoacidosis without coma Supervising Attestation Medical student Supervision Note: I independently interviewed and examined the patient and verified the franklin history and physical, reviewed labs and image studies, discussed the case with Rachel Ramos and agree with the findings and care plan. Tachypnea, HR, hypoxia improving. BSG better continue current meds. transferred to PCU. follow. Subjective Mai Briceño is a 54 y/o F with a PMHx significant for T2DM, hyperlipidemia, trigeminal neuralgia, anxiety, and possible gely insufficiency She was stepped down to PCU/telemetry and receiving ongoing treatment for diabetes and ?CAP. Today 04/21, AG is 14, BSG 141, This morning 04/21, patient reports that she is doing better but is still very tired. Since yesterday, patient mental status has improved with much more coherent speech and normal thought process. She understands that she is being treated for diabetes and possible bilateral pneumonia. She reports that she still has some headache. [place] for urination. BMs normal. Does not report fever, chills, SOB, CP, abdominal pain. Review of Systems Review of Systems: All systems reviewed & are unremarkable except as noted in HPI & below Physical Exam Constitutional: well developed and + ill appearing; no acute distress Patient lying in bed. Respiratory: normal respiratory effort, lungs clear to auscultation Cardiovascular: Rate/Rhythm: regular rhythm and + tachycardic Heart Sounds: normal S1 and normal S2 Extremities: no edema Gastrointestinal (Abdomen): Inspection/Auscultation: abdomen normal to inspection and normal bowel sounds Percussion/Palpation: abdomen soft; abdomen nontender Skin: Skin flushed and warm Psychiatric: Orientation: alert and oriented x 3 Speech: normal rate/rhythm/volume of speech Thought Process: linear/logical thought process Results & Data Vital Signs (Past 12 Hours) Vital Signs Temp Pulse Resp BP Pulse Ox Pulse Ox 04/21/19 10:01 104 H 31 H 94 04/21/19 10:00 107 H 23 127/82 93 04/21/19 09:01 107 H 28 H 96 04/21/19 09:00 107 H 38 H 116/81 95 04/21/19 08:01 103 H 37 H 96 04/21/19 08:00 36.5 C 102 H 38 H 132/82 96 04/21/19 07:01 102 H 39 H 96 04/21/19 07:00 102 H 40 H 126/84 96 04/21/19 06:01 106 H 25 H 91 04/21/19 06:00 107 H 27 H 108/68 91 04/21/19 05:01 99 H 47 H 94 04/21/19 05:00 100 H 44 H 128/81 94 04/21/19 04:01 102 H 35 H 93 04/21/19 04:00 37.1 C 102 H 34 H 130/82 93 04/21/19 03:01 105 H 35 H 93 04/21/19 03:00 102 H 42 H 123/73 94 95 04/21/19 02:01 99 H 32 H 93 04/21/19 02:00 91 H 31 H 124/73 93 04/21/19 01:01 97 H 42 H 94 04/21/19 01:00 85 28 H 106/72 94 04/21/19 00:01 98 H 33 H 93 04/21/19 00:00 37.1 C 97 H 31 H 123/80 93 04/20/19 23:01 99 H 27 H 93 04/20/19 23:00 99 H 27 H 113/75 93
--- NOTE | 2019-04-21 14:28 | Pharmacy Report ---
Pharmacy Glycemic Short Note 2 - Date of Service April 21, 2019 - Glycemic Short BSG Results (Last 24 hours): 04/20/19 04/20/19 04/20/19 14:26 15:29 16:29 Glucose POC Glucose 148 H 135 H 126 H 04/20/19 04/20/19 04/21/19 20:22 23:51 04:13 Glucose POC Glucose 143 H 160 H 175 H 04/21/19 04/21/19 04/21/19 04:29 07:15 11:33 Glucose 141 H POC Glucose 203 H 166 H OUTPATIENT ANTIDIABETIC REGIMEN: * Jardiance 10mg QD * Metformin 500mg BID * A1c:10.8% ASSESSMENT: 04/21: * Patient successfully transitioned off of the insulin drip yesterday * No lantus was given last evening due to concern for poor PO intake. However, fasting BSG elevated this morning * Will give 35 units once daily again today * Post prandial BSGs have been acceptable thus far * I suspect insulin requirements will significantly change once the patient starts eating again 04/20: * Patient anion gap closed this morning, CO2 improved. Discussed with provider and nurse, and we will attempt to transition off of the drip * Dextrose infusion discontinued this morning and insulin infusion goal range lowered to assist in drip transition * Patient is ordered a diet, but per nurse has not wanted to eat breakfast or lunch * Will give a little over a full weight based stress of 2 this morning and a lantus scale this evening based on BSG * Discussed with nurse to turn insulin infusion off @ 1630 if BSG remains < 180. If BSG > 180, RN should contact pharmacy to extend insulin infusion and adjust SQ orders. 04/19 * Patient presenting in DKA, continues to be acidotic. Discussed possible association of ketoacidosis with SGLT-2 with provider. IV fluids of D5W1/2NSS +20 kcl continue to run at 200mL/hr. Goal range remains 150-250, with insulin infusion currently stable at 3.6 units/hr. Patient ordered hydrocortisone 80mg QD (home medication at increased dose). Discussed with provider team and will plan to continue dextrose containing fluids and insulin drip at this time pending resolution of acidosis. PLAN FOR INPATIENT GLYCEMIC CONTROL: * Hold outpatient oral diabetes medications * Basal insulin * Lantus 35 units this morning (30 units +5 units) * Correctional Insulin: Novolog Correction per scale ACHS Goal Range: Low 110 mg/dL - High 140 mg/dL Correction Factor: 25 mg/dL/unit * Prandial insulin: Per carb ratio of 1 unit per 9 grams CHO consumed Thank you. PLAN FOR DISCHARGE: * Newly diagnosed T2DM with complicated endocrine picture. Insulin therapy would be indicated with current A1c, however, discharge plan depends on patient willingness and review of previous records pertinent to diabetes management. Provider coordination with outpatient providers is strongly recommended.
[2019-04-21] MEDS ORDERED: PROMETHAZINE HCL 6.25 MG in SODIUM CHLORIDE 0.9% 50 ML IV ONE (17:30)
[2019-04-21] MEDS: AMITRIPTYLINE HCL 25 MG TAB PO SCH (20:55)
[2019-04-21] MEDS: AMITRIPTYLINE HCL 100 MG TAB PO SCH (20:56)
[2019-04-22] MEDS: LEVOTHYROXINE SODIUM 100 MCG TABLET PO SCH (05:58)
[2019-04-22] MEDS: OXYCODONE HCL IR 5 MG TAB (IMMEDIATE RELEASE) PO PRN ×3 (05:58→22:43)
[2019-04-22 06:22] LABS: Hematocrit (blood only) 42.9 % (37-47); Mean Corpuscular Hemoglobin 36.4 pg (25-34); Mean Corpuscular Volume 104.1 fL (80-100); Platelet Count 177 K/uL (130-400); RDW Coefficient of Variation 14.1 % (11.5-14.5); RDW Standard Deviation 53.5 fL (36.4-46.3); Red Blood Count 4.12 M/uL (4.2-5.4); White Blood Count 9.81 K/uL (4.8-10.8)
[2019-04-22 06:30] LABS: Prothrombin Time 10.1 Seconds (9.0-12.0)
[2019-04-22 06:46] LABS: Basophils # (auto) 0.15 K/uL (0-0.2); Basophils % (auto) 1.5 %; Eosinophils # (auto) 0.22 K/uL (0-0.5); Eosinophils % (auto) 2.2 %; Immature Granulocytes % (auto) 9.2 %; Lymphocytes # (auto) 2.57 K/uL (1.2-3.4); Lymphocytes % (auto) 26.2 %; Monocytes # (auto) 0.65 K/uL (0.11-0.59); Monocytes % (auto) 6.6 %; Neutrophils # (auto) 5.32 K/uL (1.4-6.5); Neutrophils % (auto) 54.3 %
[2019-04-22 07:00] LABS: Albumin Level 2.1 gm/dl (3.4-5.0); BUN Creatinine Ratio 19.9 (10-20); Calcium 9.2 mg/dl (8.5-10.1); Creatinine Clr Calc Pharmacy 141.1 ml/min; Est GFR (African American) 121.8; Est GFR (Non-African American) 105.1; Potassium 2.8 mmol/L (3.5-5.1)
[2019-04-22 07:03] LABS: Albumin Globulin Ratio 0.5 (0.9-2); Bilirubin,Total 0.4 mg/dl (0.2-1); Globulin 4.1 gm/dl (2.5-4.0); Phosphorus 1.7 mg/dl (2.5-4.9); Total Protein 6.2 gm/dl (6.4-8.2)
[2019-04-22] MEDS: INSULIN ASPART 100 UNITS/ML 3 ML PEN SC SCH ×4 (08:09→21:37)
[2019-04-22] MEDS: GABAPENTIN 800 MG TAB PO SCH ×4 (08:16→21:35)
[2019-04-22] MEDS: SPIRONOLACTONE 100 MG TAB PO SCH (08:16)
[2019-04-22] MEDS: ESCITALOPRAM OXALATE 10 MG TAB PO SCH (08:16)
[2019-04-22] MEDS: HYDROCORTISONE 10 MG TAB PO SCH (08:17)
[2019-04-22] MEDS: BusPIRone 15 MG TAB PO SCH ×2 (08:18→21:35)
[2019-04-22] MEDS: ENOXAPARIN INJ 40 MG/0.4 ML SYR SQ SCH (08:18)
[2019-04-22] MEDS: AZITHROMYCIN 250 MG TAB PO SCH (08:18)
[2019-04-22] MEDS ORDERED: POTASSIUM PHOS 3 MMOL/1 ML INFUSION IV STA (08:34)
[2019-04-22] MEDS ORDERED: POTASSIUM PHOSPHATE 30 MMOL in SODIUM CHLORIDE 0.9% 500 ML IV STA (08:38)
[2019-04-22] MEDS ORDERED: INSULIN GLARGINE SOLOSTAR 100 UNITS/ML 3 ML PEN SC SCH (09:00)
--- NOTE | 2019-04-22 11:40 | Medical Student Progress Note ---
Date of Service April 22, 2019 Assessment & Plan (1) Diabetes: Mai Briceño is a 54 y/o F w/ a PMHx of type 2 diabetes, hyperlipidemia, trigeminal neuralgia, anxiety and questionable adrenal insufficiency who was admitted due to AMS, coordination issues, SOB, and hyperglycemia. CT head u nremarkable. CXR showed bilateral infiltrates. DKA (diabetic ketoacidoses) secondary to the exogenous steroid for ?adrenal insufficiency -Resolved -Continue 30 units insulin glargine daily and insulin aspart at meals -Continue IV potassium phosphate, Phos 1.7, monitor Community Acquired Pneumonia Acute hypoxic respiratory failure 04/22 WBC 9.81. Blood cultures x2 negative Tachypnea resolved. Sat 92% room air. -Have patient ambulate and monitor ox -To Finish Azithromycin 500 mg PO for 5 day course ? Adrenal Insufficiency -Reviewed outpatient records -Unclear whether this diagnosis has been established -was put on dexamethasone for sometime to treat atypical facial pain and then for concern of adrenal insufficiency has been on hydrocortisone. No official evaluation has been done. -Cont home dose 40 mg. -to f/u with endocrine for evaluation as already scheduled Polycystic Ovarian Syndrome (PCOS) -Cont spironolactone 100 mg PO daily Diabetes Mellitus -will go home on insulin, pt agrees Atypical facial pain/?Trigeminal Neuralgia/Headache -Continue oxycodone 10 mg PRN -Continue amitriptyline 125 mg daily -Continue gabapentin 800 mg PO QID Hypothyroidism On admission, TSH .273. Free T4 1.18 -Continue home Synthroid 100 mcg PO Elevated LFTs Elevated on admission -Hepatitis panel negative -04/22: AST-31, ALT-43 Anxiety -Restarted buspirone 15 mg PO daily, prn alprazolam .5 mg, and escitalopram 10 mg daily Code status: Full code. PT/OT: Deferred on admit. DVT Prophylaxis: Lovenox 40 mg daily and SCDs, encourage on admit Disposition: PCU/Telemetry Supervising Attestation Medical Student Supervision Note: I independently interviewed and examined the patient and verified the [place] history and physical, reviewed labs and image studies, discussed the case with Rachel Ramos and agree with the findings and care plan. Subjective Mai Briceño is a 54 y/o F with a PMHx significant for T2DM, hyperlipidemia, trigeminal neuralgia, anxiety, and possible gely insufficiency. Admitted for DKA which has resolved. Today in PCU/telemetry and receiving ongoing treatment for diabetes and ?CAP. This morning 04/22, patient reports symptom improvement but continued poor sleep quality. She reports low appetite. She is up out of bed. Does not report fever, chills, SOB, CP, abdominal pain. Review of Systems Review of Systems: All systems reviewed & are unremarkable except as noted in HPI & below Physical Exam Constitutional: well developed and comfortable; no acute distress Respiratory: normal respiratory effort, lungs clear to auscultation Cardiovascular: Rate/Rhythm: regular rhythm and + tachycardic Heart Sounds: normal S1 and normal S2; no murmur Extremities: no edema Gastrointestinal (Abdomen): Inspection/Auscultation: abdomen normal to inspection and normal bowel sounds Percussion/Palpation: abdomen soft; abdomen nontender Skin: no rashes, warm and dry Psychiatric: A+Ox3, euthymic affect Speech: normal rate/rhythm/volume of speech Thought Process: linear/logical thought process Results & Data Vital Signs (Past 12 Hours) Vital Signs Temp Pulse Pulse Resp BP BP Pulse Ox 04/22/19 11:19 36.9 C 94 H 18 121/77 92 04/22/19 07:45 93 H 04/22/19 07:16 36.8 C 95 H 18 102/66 91 04/22/19 03:04 36.9 C 90 18 116/80 92
[2019-04-22] MEDS: PROMETHAZINE HCL 6.25 MG in SODIUM CHLORIDE 0.9% 50 ML IV PRN ×2 (14:14→21:14)
--- NOTE | 2019-04-22 14:41 | Pharmacy Report ---
Pharmacy Glycemic Short Note 2 - Date of Service April 22, 2019 - Glycemic Short BSG Results (Last 24 hours): 04/21/19 04/21/19 04/22/19 16:06 20:02 05:44 Glucose 134 H POC Glucose 164 H 126 H 04/22/19 04/22/19 07:19 11:35 Glucose POC Glucose 171 H 196 H OUTPATIENT ANTIDIABETIC REGIMEN: * Jardiance 10mg QD * Metformin 500mg BID * A1c:10.8% ASSESSMENT: 04/22: * Patient's BSGs ranged from 126-203 yesterday with 35 units of basal and 6 units of prandial/correctional * Patient beginning to have better po intake, lunch BSG 196 today, may need to tighten carb ratio if continue to trend upwards * Fasting this morning 171- increased scheduled lantus back to 35 units, will trend and titrate up tomorrow if needed * Hydrocortisone changed to 40 mg QAM- continue to monitor 04/21: * Patient successfully transitioned off of the insulin drip yesterday * No lantus was given last evening due to concern for poor PO intake. However, fasting BSG elevated this morning * Will give 35 units once daily again today * Post prandial BSGs have been acceptable thus far * I suspect insulin requirements will significantly change once the patient starts eating again 04/20: * Patient anion gap closed this morning, CO2 improved. Discussed with provider and nurse, and we will attempt to transition off of the drip * Dextrose infusion discontinued this morning and insulin infusion goal range lowered to assist in drip transition * Patient is ordered a diet, but per nurse has not wanted to eat breakfast or lunch * Will give a little over a full weight based stress of 2 this morning and a lantus scale this evening based on BSG * Discussed with nurse to turn insulin infusion off @ 1630 if BSG remains < 180. If BSG > 180, RN should contact pharmacy to extend insulin infusion and adjust SQ orders. 04/19 * Patient presenting in DKA, continues to be acidotic. Discussed possible association of ketoacidosis with SGLT-2 with provider. IV fluids of D5W1/2NSS +20 kcl continue to run at 200mL/hr. Goal range remains 150-250, with insulin infusion currently stable at 3.6 units/hr. Patient ordered hydrocortisone 80mg QD (home medication at increased dose). Discussed with provider team and will plan to continue dextrose containing fluids and insulin drip at this time pending resolution of acidosis. PLAN FOR INPATIENT GLYCEMIC CONTROL: * Hold outpatient oral diabetes medications * Basal insulin * Lantus 35 units this morning (30 units +5 units) * Correctional Insulin: Novolog Correction per scale ACHS Goal Range: Low 110 mg/dL - High 140 mg/dL Correction Factor: 25 mg/dL/unit * Prandial insulin: Per carb ratio of 1 unit per 9 grams CHO consumed Thank you. PLAN FOR DISCHARGE: * Newly diagnosed T2DM with complicated endocrine picture. A1c 10.8% with goal <7%. Insulin therapy would be indicated with current A1c, however, discharge plan depends on patient willingness and review of previous records pertinent to diabetes management. Provider coordination with outpatient providers is strongly recommended.
[2019-04-22] MEDS ORDERED: DIPHENOXYLATE/ATROPINE 2.5/0.025MG TAB PO ONE (17:53)
[2019-04-22] MEDS ORDERED: PSYLLIUM 58.6% POWDER PACKET PO PRN (17:58)
[2019-04-22] MEDS ORDERED: LOPERAMIDE HCL 2 MG CAP PO STA (18:01)
[2019-04-22] MEDS: LOPERAMIDE HCL 2 MG CAP PO PRN (18:17)
[2019-04-22] MEDS: AMITRIPTYLINE HCL 25 MG TAB PO SCH (21:36)
[2019-04-22] MEDS: AMITRIPTYLINE HCL 100 MG TAB PO SCH (21:36)
[2019-04-23 06:15] LABS: Hematocrit (blood only) 40.4 % (37-47); Hemoglobin 14.2 g/dL (12.0-16.0); Mean Corpuscular Hemoglobin 36.2 pg (25-34); Mean Corpuscular Hgb Conc 35.1 g/dL (32-36); Mean Corpuscular Volume 103.1 fL (80-100); Mean Platelet Volume 10.4 fL (7.4-10.4); Platelet Count 192 K/uL (130-400); RDW Coefficient of Variation 13.8 % (11.5-14.5); RDW Standard Deviation 51.7 fL (36.4-46.3); Red Blood Count 3.92 M/uL (4.2-5.4); White Blood Count 11.61 K/uL (4.8-10.8)
[2019-04-23] MEDS: LEVOTHYROXINE SODIUM 100 MCG TABLET PO SCH (06:41)
[2019-04-23 06:48] LABS: ALC (manual) 3.67 K/uL (1.2-3.4); ANC (manual) 6.46 K/uL (1.4-6.5); Eosinophils # (manual) 0.39 K/uL (0-0.5); Eosinophils % (manual) 3.4 %; Lymphocytes # (manual) 3.67 K/uL (1.2-3.4); Lymphocytes % (manual) 31.6 %; Metamyelocytes % (manual) 1.7 %; Monocytes % (manual) 4.3 %; Myelocytes # (manual) 0.39 K/uL (0-0); Myelocytes % (manual) 3.4 %; Neutrophils # (manual) 6.46 K/uL (1.4-6.5); Neutrophils % (manual) 55.6 %; RBC Morphology Unremarkable
[2019-04-23 06:52] LABS: Albumin Globulin Ratio 0.5 (0.9-2); Albumin Level 1.9 gm/dl (3.4-5.0); BUN Creatinine Ratio 18.8 (10-20); Bilirubin,Total 0.3 mg/dl (0.2-1); Calcium 8.7 mg/dl (8.5-10.1); Creatinine Clr Calc Pharmacy 148.9 ml/min; Globulin 3.5 gm/dl (2.5-4.0); Magnesium 1.7 mg/dl (1.8-2.4); Phosphorus 3.1 mg/dl (2.5-4.9); Potassium 2.4 mmol/L (3.5-5.1); Total Protein 5.4 gm/dl (6.4-8.2)
[2019-04-23] MEDS: INSULIN ASPART 100 UNITS/ML 3 ML PEN SC SCH ×4 (07:36→21:30)
[2019-04-23] MEDS: OXYCODONE HCL IR 5 MG TAB (IMMEDIATE RELEASE) PO PRN ×2 (07:38→20:50)
[2019-04-23] MEDS: POTASSIUM CHLORIDE / WTR 10 MEQ/100 ML PLCT IV SCH ×3 (08:56→11:27)
[2019-04-23] MEDS ORDERED: INSULIN GLARGINE SOLOSTAR 100 UNITS/ML 3 ML PEN SC SCH (09:00)
[2019-04-23] MEDS: ENOXAPARIN INJ 40 MG/0.4 ML SYR SQ SCH (09:08)
[2019-04-23] MEDS: HYDROCORTISONE 10 MG TAB PO SCH (09:08)
[2019-04-23] MEDS: ESCITALOPRAM OXALATE 10 MG TAB PO SCH (09:08)
[2019-04-23] MEDS: BusPIRone 15 MG TAB PO SCH ×2 (09:09→20:48)
[2019-04-23] MEDS: AZITHROMYCIN 250 MG TAB PO SCH (09:09)
[2019-04-23] MEDS: SPIRONOLACTONE 100 MG TAB PO SCH (09:09)
[2019-04-23] MEDS: GABAPENTIN 800 MG TAB PO SCH ×4 (09:10→20:49)
--- NOTE | 2019-04-23 09:13 | Pharmacy Report ---
Pharmacy Glycemic Short Note 2 - Date of Service April 23, 2019 - Glycemic Short BSG Results (Last 24 hours): 04/22/19 04/22/19 04/22/19 11:35 16:16 20:34 Glucose POC Glucose 196 H 148 H 140 H 04/23/19 04/23/19 05:59 07:13 Glucose 90 POC Glucose 105 H OUTPATIENT ANTIDIABETIC REGIMEN: * Jardiance 10mg QD * Metformin 500mg BID * A1c:10.8% ASSESSMENT: 23: * Pt has received 47 units of insulin over the past 24hrs * 35 units basal {Lantus} * 12 units bolus {NovoLog} * BSGs ranging 140-196 mg/dl * Regimen appears skewed towards basal insulin - however, PO intake remains low * AM fasting BSG = 105 mg/dl --> this is slightly below goal for inpatient targets and trending downwards over the past 3 days (AM fasting BSG = 203 --> 171 --> 105 today). Will decrease basal insulin to prevent low tomorrow * Post-prandial BSGs all in goal range except for pre-lunch yesterday. No changes needed today. 04/22: * Patient's BSGs ranged from 126-203 yesterday with 35 units of basal and 6 unit s of prandial/correctional * Patient beginning to have better po intake, lunch BSG 196 today, may need to tighten carb ratio if continue to trend upwards * Fasting this morning 171- increased scheduled lantus back to 35 units, will trend and titrate up tomorrow if needed * Hydrocortisone changed to 40 mg QAM- continue to monitor 04/21: * Patient successfully transitioned off of the insulin drip yesterday * No lantus was given last evening due to concern for poor PO intake. However, fasting BSG elevated this morning * Will give 35 units once daily again today * Post prandial BSGs have been acceptable thus far * I suspect insulin requirements will significantly change once the patient starts eating again 04/20: * Patient anion gap closed this morning, CO2 improved. Discussed with provider and nurse, and we will attempt to transition off of the drip * Dextrose infusion discontinued this morning and insulin infusion goal range lowered to assist in drip transition * Patient is ordered a diet, but per nurse has not wanted to eat breakfast or lunch * Will give a little over a full weight based stress of 2 this morning and a lantus scale this evening based on BSG * Discussed with nurse to turn insulin infusion off @ 1630 if BSG remains < 180. If BSG > 180, RN should contact pharmacy to extend insulin infusion and adjust SQ orders. 04/19 * Patient presenting in DKA, continues to be acidotic. Discussed possible association of ketoacidosis with SGLT-2 with provider. IV fluids of D5W1/2NSS +20 kcl continue to run at 200mL/hr. Goal range remains 150-250, with insulin infusion currently stable at 3.6 units/hr. Patient ordered hydrocortisone 80mg QD (home medication at increased dose). Discussed with provider team and will plan to continue dextrose containing fluids and insulin drip at this time pending resolution of acidosis. PLAN FOR INPATIENT GLYCEMIC CONTROL: * Hold outpatient oral diabetes medications * Basal insulin: decrease dosing * Lantus 28 units SQ daily * Bolus insulin : no changes needed * Novolog Correction per scale ACHS Goal Range: Low 110 mg/dL - High 140 mg/dL Correction Factor: 25 mg/dL/unit Prandial insulin: Per carb ratio of 1 unit per 9 grams CHO consumed Thank you. PLAN FOR DISCHARGE: * Newly diagnosed T2DM with complicated endocrine picture. A1c 10.8% with goal <7%. Insulin therapy would be indicated with current A1c, however, discharge plan depends on patient willingness and review of previous records pertinent to diabetes management. Provider coordination with outpatient providers is strongly recommended. * If patient agrees to insulin therapy, recommend keeping the regimen as simple as possible. * Could consider premixed insulin with Novolin 70/30 insulin 30 units SQ daily in AM with breakfast + 10 units SQ daily in PM with dinner.
[2019-04-23] MEDS: POTASSIUM CHLORIDE 20 MEQ TABCR PO SCH ×3 (09:14→20:48)
[2019-04-23] MEDS: MAGNESIUM OXIDE 400 MG TAB PO SCH ×2 (09:14→20:48)
[2019-04-23] MEDS: LOPERAMIDE HCL 2 MG CAP PO PRN (11:32)
--- NOTE | 2019-04-23 13:27 | Hospitalist Progress Note ---
Date of Service April 23, 2019 Assessment & Plan (1) DKA (diabetic ketoacidoses): Mai Briceño is a 54 y/o F w/ a PMHx of type 2 diabetes, hyperlipidemia, trigeminal neuralgia, anxiety and questionable adrenal insufficiency who was admitted due to AMS, coordination issues, SOB, and hyperglycemia. CT head unremarkable. CXR showed bilateral infiltrates. DKA (diabetic ketoacidoses) secondary to the exogenous steroid for ?adrenal insufficiency -Resolved Starting patient on insulin Hypokalemia Patient with marked hypokalemia with potassium of 2.4 today despite IV potassium phophate administered yesterday. Possibly revealed secondary to potassium influx into cells as DKA improved Supplementing both PO and IV KCl today 90 mEQ in total Will recheck in morning ECG ordered this morning showing no abnormalities Community Acquired Pneumonia Acute hypoxic respiratory failure on presentation 04/22 WBC 9.81. Blood cultures x2 negative Sat 95% room air. Finished with Azithromycin 500 mg PO for 5 day course ? Adrenal Insufficiency -Reviewed outpatient records -Unclear whether this diagnosis has been established -was put on dexamethasone for sometime to treat atypical facial pain and then for concern of adrenal insufficiency has been on hydrocortisone. No official evaluation has been done. -Cont home dose 40 mg. -to f/u with endocrine for evaluation as already scheduled Diabetes Mellitus -will go home on insulin, pt agrees Atypical facial pain/?Trigeminal Neuralgia/Headache -Continue oxycodone 10 mg PRN -Continue amitriptyline 125 mg daily -Continue gabapentin 800 mg PO QID Hypothyroidism On admission, TSH .273. Free T4 1.18 -Continue home Synthroid 100 mcg PO Elevated LFTs Elevated on admission -Hepatitis panel negative -04/22: AST-31, ALT-43 Anxiety -Restarted buspirone 15 mg PO daily, prn alprazolam .5 mg, and escitalopram 10 mg daily Code status: Full code. DVT Prophylaxis: Lovenox 40 mg daily Disposition: PCU/Telemetry until hypokalemia resolves, then discharge to home (2) Anxiety: (3) Hypertension: (4) LAFB (left anterior fascicular block): (5) CAP (community acquired pneumonia): (6) Diabetes: (7) Adrenal insufficiency: (8) Trigeminal neuralgia: (9) Hypothyroidism: (10) Elevated LFTs: Supervising Physician Co-Signing Physician Notes Resident Physician Supervision Note: I independently interviewed and examined the patient and verified the [place] history and physical, reviewed labs and image studies, discussed the case with the resident Dr. Ambrose and agree with the findings and care plan. Physical Exam Constitutional: well developed and comfortable; no acute distress Respiratory: normal respiratory effort, lungs clear to auscultation Auscultation: lungs clear to auscultation bilaterally; no crackles, no rales, no rhonchi and no wheezes Cardiovascular: Rate/Rhythm: regular rhythm and + tachycardic Heart Sounds: normal S1 and normal S2; no murmur Extremities: no edema Gastrointestinal (Abdomen): Inspection/Auscultation: abdomen normal to inspection and normal bowel sounds Percussion/Palpation: abdomen soft; abdomen nontender Skin: no rashes, warm and dry Psychiatric: A+Ox3, euthymic affect Orientation: alert and oriented x 3 Speech: normal rate/rhythm/volume of speech Thought Process: linear/logical thought process Results & Data Vital Signs (Past 12 Hours) Vital Signs Temp Pulse Pulse Resp BP Pulse Ox 04/23/19 11:03 36.9 C 90 22 103/75 93 04/23/19 07:15 90 04/23/19 06:54 36.8 C 96 H 16 107/70 93 04/23/19 03:44 37.0 C 94 H 16 90/59 L 91 Resident Activity Tracking Resident Involvement: Resident Care Provided Care Provided: Adult Hospital Medicine (1) DKA (diabetic ketoacidoses) Diabetes mellitus complication detail: without coma Diabetes mellitus type: other specified (including VICKY) Qualified Code(s): E13.10 - Other specified diabetes mellitus with ketoacidosis without coma
[2019-04-23] MEDS: AMITRIPTYLINE HCL 100 MG TAB PO SCH (20:48)
[2019-04-23] MEDS: AMITRIPTYLINE HCL 25 MG TAB PO SCH (20:49)
[2019-04-23] MEDS: PROMETHAZINE HCL 6.25 MG in SODIUM CHLORIDE 0.9% 50 ML IV PRN (20:50)
[2019-04-24] MEDS: LEVOTHYROXINE SODIUM 100 MCG TABLET PO SCH (05:59)
[2019-04-24] MEDS: OXYCODONE HCL IR 5 MG TAB (IMMEDIATE RELEASE) PO PRN ×3 (06:00→22:18)
[2019-04-24 06:04] LABS: Hematocrit (blood only) 40.8 % (37-47); Hemoglobin 14.2 g/dL (12.0-16.0); Mean Corpuscular Hemoglobin 36.2 pg (25-34); Mean Corpuscular Hgb Conc 34.8 g/dL (32-36); Mean Corpuscular Volume 104.1 fL (80-100); Mean Platelet Volume 10.5 fL (7.4-10.4); Platelet Count 212 K/uL (130-400); RDW Coefficient of Variation 13.7 % (11.5-14.5); RDW Standard Deviation 51.7 fL (36.4-46.3); Red Blood Count 3.92 M/uL (4.2-5.4); White Blood Count 12.86 K/uL (4.8-10.8)
[2019-04-24 06:32] LABS: ALC (manual) 3.52 K/uL (1.2-3.4); ANC (manual) 7.16 K/uL (1.4-6.5); Basophils % (manual) 0.9 %; Eosinophils # (manual) 0.23 K/uL (0-0.5); Eosinophils % (manual) 1.8 %; Lymphocytes # (manual) 3.52 K/uL (1.2-3.4); Lymphocytes % (manual) 27.4 %; Monocytes # (manual) 1.03 K/uL (0.11-0.59); Myelocytes % (manual) 6.2 %; Neutrophils # (manual) 7.16 K/uL (1.4-6.5); Neutrophils % (manual) 55.7 %
[2019-04-24 06:33] LABS: Basophils # (manual) 0.12 K/uL (0-0.2)
[2019-04-24 06:45] LABS: Albumin Globulin Ratio 0.7 (0.9-2); Albumin Level 2.1 gm/dl (3.4-5.0); BUN Creatinine Ratio 12.6 (10-20); Bilirubin,Total 0.3 mg/dl (0.2-1); Creatinine Clr Calc Pharmacy 120.5 ml/min; Est GFR (African American) 116.1; Est GFR (Non-African American) 100.1; Globulin 3.2 gm/dl (2.5-4.0); Phosphorus 3.3 mg/dl (2.5-4.9); Potassium 3.2 mmol/L (3.5-5.1); Total Protein 5.3 gm/dl (6.4-8.2)
[2019-04-24] MEDS: INSULIN ASPART 100 UNITS/ML 3 ML PEN SC SCH ×4 (08:06→21:15)
[2019-04-24] MEDS: INSULIN GLARGINE SOLOSTAR 100 UNITS/ML 3 ML PEN SC SCH (08:07)
[2019-04-24] MEDS: HYDROCORTISONE 10 MG TAB PO SCH (08:09)
[2019-04-24] MEDS: ESCITALOPRAM OXALATE 10 MG TAB PO SCH (08:10)
[2019-04-24] MEDS: SPIRONOLACTONE 100 MG TAB PO SCH (08:10)
[2019-04-24] MEDS: GABAPENTIN 800 MG TAB PO SCH ×4 (08:10→22:00)
[2019-04-24] MEDS: ENOXAPARIN INJ 40 MG/0.4 ML SYR SQ SCH (08:11)
[2019-04-24] MEDS: MAGNESIUM OXIDE 400 MG TAB PO SCH ×2 (08:11→21:59)
[2019-04-24] MEDS: BusPIRone 15 MG TAB PO SCH ×2 (08:11→22:00)
[2019-04-24] MEDS: POTASSIUM CHLORIDE 20 MEQ TABCR PO SCH ×3 (08:11→22:01)
--- NOTE | 2019-04-24 10:44 | Pharmacy Report ---
Pharmacy Glycemic Short Note 2 - Date of Service April 24, 2019 - Glycemic Short BSG Results (Last 24 hours): 04/23/19 04/23/19 04/23/19 11:01 16:01 19:55 Glucose POC Glucose 149 H 251 H 118 H 04/24/19 04/24/19 05:42 07:14 Glucose 90 POC Glucose 110 H OUTPATIENT ANTIDIABETIC REGIMEN: * Jardiance 10mg QD * Metformin 500mg BID * A1c:10.8% ASSESSMENT: 04/24: * Pt has received 43 units of insulin over the past 24hrs * 28 units basal {Lantus} * 15 units bolus {NovoLog} * BSGs ranging 105-251 mg/dl * AM fasting BSG = remains slightly below goal for inpatient targets at 90, 110mg/dl. Same as yesterday but trending downwards over the past 4 days (AM fasting BSG = 203 --> 171 --> 105 --> 110 today). Will decrease basal insulin again today to prevent low tomorrow * Post-prandial BSGs all in goal range except for pre-dinner yesterday. Will tighten CR for more prandial coverage. Will loosen CF so that patient doesnt receive too much coverage when BSG is above goal range. 04/23: * Pt has received 47 units of insulin over the past 24hrs * 35 units basal {Lantus} * 12 units bolus {NovoLog} * BSGs ranging 140-196 mg/dl * Regimen appears skewed towards basal insulin - however, PO intake remains low * AM fasting BSG = 105 mg/dl --> this is slightly below goal for inpatient targets and trending downwards over the past 3 days (AM fasting BSG = 203 --> 171 --> 105 today). Will decrease basal insulin to prevent low tomorrow * Post-prandial BSGs all in goal range except for pre-lunch yesterday. No changes needed today. 04/22: * Patient's BSGs ranged from 126-203 yesterday with 35 units of basal and 6 units of prandial/correctional * Patient beginning to have better po intake, lunch BSG 196 today, may need to tighten carb ratio if continue to trend upwards * Fasting this morning 171- increased scheduled lantus back to 35 units, will trend and titrate up tomorrow if needed * Hydrocortisone changed to 40 mg QAM- continue to monitor 04/21: * Patient successfully transitioned off of the insulin drip yesterday * No lantus was given last evening due to concern for poor PO intake. However, fasting BSG elevated this morning * Will give 35 units once daily again today * Post prandial BSGs have been acceptable thus far * I suspect insulin requirements will significantly change once the patient starts eating again 04/20: * Patient anion gap closed this morning, CO2 improved. Discussed with provider and nurse, and we will attempt to transition off of the drip * Dextrose infusion discontinued this morning and insulin infusion goal range lowered to assist in drip transition * Patient is ordered a diet, but per nurse has not wanted to eat breakfast or lunch * Will give a little over a full weight based stress of 2 this morning and a lantus scale this evening based on BSG * Discussed with nurse to turn insulin infusion off @ 1630 if BSG remains < 180. If BSG > 180, RN should contact pharmacy to extend insulin infusion and adjust SQ orders. 04/19 * Patient presenting in DKA, continues to be acidotic. Discussed possible association of ketoacidosis with SGLT-2 with provider. IV fluids of D5W1/2NSS +20 kcl continue to run at 200mL/hr. Goal range remains 150-250, with insulin infusion currently stable at 3.6 units/hr. Patient ordered hydrocortisone 80mg QD (home medication at increased dose). Discussed with provider team and will plan to continue dextrose containing fluids and insulin drip at this time pending resolution of acidosis. PLAN FOR INPATIENT GLYCEMIC CONTROL: * Hold outpatient oral diabetes medications * Basal insulin: decrease dosing * Lantus 25 units SQ daily * Bolus insulin : loosen CF, tighten CR * Novolog Correction per scale ACHS Goal Range: Low 110 mg/dL - High 140 mg/dL Correction Factor: 30 mg/dL/unit Prandial insulin: Per carb ratio of 1 unit per 8 grams CHO consumed Thank you. PLAN FOR DISCHARGE: * A1c = 10.8 % on 04/18/19 * Goal A1c = <7 % based on age and comorbidities * A reasonable A1C goal for many non- adults is A1c less than 7% * Metformin should be continued. Metformin is effective and safe, is inexpensive, and may reduce risk of cardiovascular events and . 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 Patient to discuss with PCP/endo * If patient agrees to insulin therapy, recommend keeping the regimen as simple as possible. * Could consider premixed insulin with Novolin 70/30 insulin 30 units SQ daily in AM with breakfast + 10 units SQ daily in PM with dinner. * Or, could condier basal insulin with glargine 25 units SQ daily + GLP-1
[2019-04-24] MEDS: LACTOBACILLUS ACIDOPHILUS (FLORANEX) TAB PO SCH ×2 (13:22→16:59)
[2019-04-24] MEDS: LOPERAMIDE HCL 2 MG CAP PO PRN (13:22)
--- NOTE | 2019-04-24 15:28 | Hospitalist Progress Note ---
Date of Service April 24, 2019 Assessment & Plan (1) DKA (diabetic ketoacidoses): Mai Briceño is a 54 y/o F w/ a PMHx of type 2 diabetes, hyperlipidemia, trigeminal neuralgia, anxiety and questionable adrenal insufficiency who was admitted due to AMS, coordination issues, SOB, and hyperglycemia. CT head unremarkable. CXR showed bilateral infiltrates. DKA (diabetic ketoacidoses) secondary to the exogenous steroid for ?adrenal insufficiency -Resolved Starting patient on insulin Hypokalemia Patient with marked hypokalemia with potassium of 2.4 today despite IV potassium phophate administered yesterday. Possibly revealed secondary to potassium influx into cells as DKA improved Supplementing with PO KCl today 60 mEQ in total Will recheck in morning ECG ordered 04/23 am showing no abnormalities Community Acquired Pneumonia Acute hypoxic respiratory failure on presentation 04/22 WBC 9.81. Blood cultures x2 negative Sat 95% room air. Finished with Azithromycin 500 mg PO for 5 day course ? Adrenal Insufficiency -Reviewed outpatient records -Unclear whether this diagnosis has been established -was put on dexamethasone for sometime to treat atypical facial pain and then for concern of adrenal insufficiency has been on hydrocortisone. No official evaluation has been done. -Cont home dose 40 mg. -to f/u with endocrine for evaluation as already scheduled Diabetes Mellitus -will go home on insulin, pt agrees Atypical facial pain/?Trigeminal Neuralgia/Headache -Continue oxycodone 10 mg PRN -Continue amitriptyline 125 mg daily -Continue gabapentin 800 mg PO QID Diarrhea may be secondary to opiate withdrawal as she takes a significant amount of opiates at home. C. Diff negative on the Treating with imodium currently Hypothyroidism On admission, TSH .273. Free T4 1.18 -Continue home Synthroid 100 mcg PO Elevated LFTs Elevated on admission -Hepatitis panel negative -04/22: AST-31, ALT-43 Anxiety -Restarted buspirone 15 mg PO daily, prn alprazolam .5 mg, and escitalopram 10 mg daily Code status: Full code. DVT Prophylaxis: Lovenox 40 mg daily Disposition: PCU/Telemetry until hypokalemia and diarrhea resolves, then discharge to home (2) Anxiety: (3) Hypertension: (4) LAFB (left anterior fascicular block): (5) CAP (community acquired pneumonia): (6) Diabetes: (7) Adrenal insufficiency: (8) Trigeminal neuralgia: (9) Hypothyroidism: (10) Elevated LFTs: Supervising Physician Co-Signing Physician Notes Resident Physician Supervision Note: I independently interviewed and examined the patient and verified the franklin history and physical, reviewed labs and image studies, discussed the case with the resident Dr. Ambrose and agree with the findings and care plan. Subjective Mai Briceño is continuing to have diarrhea, she denies abdominal pain, vomiting, and endorses some mild nausea. Her appetite has not been great. She otherwise continues to be much improved Review of Systems Review of Systems: All systems reviewed & are unremarkable except as noted in HPI & below Physical Exam Constitutional: well developed and comfortable; no acute distress Respiratory: normal respiratory effort, lungs clear to auscultation Auscultation: lungs clear to auscultation bilaterally; no crackles, no rales, no rhonchi and no wheezes Cardiovascular: Rate/Rhythm: regular rhythm and + tachycardic Heart Sounds: normal S1 and normal S2; no murmur Extremities: no edema Gastrointestinal (Abdomen): Inspection/Auscultation: abdomen normal to inspection and normal bowel sounds Percussion/Palpation: abdomen soft; abdomen nontender Skin: no rashes, warm and dry Psychiatric: A+Ox3, euthymic affect Orientation: alert and oriented x 3 Speech: normal rate/rhythm/volume of speech Thought Process: linear/logical thought process Results & Data Vital Signs (Past 12 Hours) Vital Signs Temp Pulse Pulse Resp BP Pulse Ox 04/24/19 14:55 36.8 C 112 H 19 104/72 93 04/24/19 11:05 36.7 C 97 H 16 106/73 91 04/24/19 07:45 92 H 04/24/19 07:16 36.9 C 98 H 20 117/78 94 Resident Activity Tracking Resident Involvement: Resident Care Provided Care Provided: Adult Hospital Medicine (1) DKA (diabetic ketoacidoses) Diabetes mellitus complication detail: without coma Diabetes mellitus type: other specified (including VICKY) Qualified Code(s): E13.10 - Other specified diabetes mellitus with ketoacidosis without coma
[2019-04-24] MEDS: AMITRIPTYLINE HCL 25 MG TAB PO SCH (21:59)
[2019-04-24] MEDS: AMITRIPTYLINE HCL 100 MG TAB PO SCH (21:59)
[2019-04-25] MEDS: LEVOTHYROXINE SODIUM 100 MCG TABLET PO SCH (06:26)
[2019-04-25] MEDS: OXYCODONE HCL IR 5 MG TAB (IMMEDIATE RELEASE) PO PRN ×2 (06:26→14:29)
[2019-04-25 07:32] LABS: Hematocrit (blood only) 42.3 % (37-47); Hemoglobin 14.6 g/dL (12.0-16.0); Mean Corpuscular Hemoglobin 36.1 pg (25-34); Mean Corpuscular Hgb Conc 34.5 g/dL (32-36); Mean Corpuscular Volume 104.7 fL (80-100); Mean Platelet Volume 10.1 fL (7.4-10.4); Platelet Count 243 K/uL (130-400); RDW Coefficient of Variation 13.5 % (11.5-14.5); RDW Standard Deviation 51.7 fL (36.4-46.3); Red Blood Count 4.04 M/uL (4.2-5.4); White Blood Count 15.43 K/uL (4.8-10.8)
[2019-04-25 07:55] LABS: ALC (manual) 6.36 K/uL (1.2-3.4); ANC (manual) 6.09 K/uL (1.4-6.5); Lymphocytes # (manual) 6.36 K/uL (1.2-3.4); Lymphocytes % (manual) 41.2 %; Metamyelocytes # (manual) 0.82 K/uL (0-0); Metamyelocytes % (manual) 5.3 %; Monocytes # (manual) 1.08 K/uL (0.11-0.59); Myelocytes # (manual) 1.08 K/uL (0-0); Neutrophils # (manual) 6.09 K/uL (1.4-6.5); Neutrophils % (manual) 39.5 %
[2019-04-25 07:57] LABS: Albumin Level 2.4 gm/dl (3.4-5.0); BUN Creatinine Ratio 10.1 (10-20); Calcium 9.4 mg/dl (8.5-10.1); Est GFR (African American) 103.1; Est GFR (Non-African American) 88.9; Potassium 3.4 mmol/L (3.5-5.1)
[2019-04-25 07:59] LABS: Albumin Globulin Ratio 0.7 (0.9-2); Bilirubin,Total 0.3 mg/dl (0.2-1); Globulin 3.3 gm/dl (2.5-4.0); Phosphorus 3.7 mg/dl (2.5-4.9); Total Protein 5.7 gm/dl (6.4-8.2)
[2019-04-25] MEDS: LACTOBACILLUS ACIDOPHILUS (FLORANEX) TAB PO SCH ×2 (08:26→11:19)
[2019-04-25] MEDS: GABAPENTIN 800 MG TAB PO SCH ×2 (08:26→12:42)
[2019-04-25] MEDS: POTASSIUM CHLORIDE 20 MEQ TABCR PO SCH ×3 (08:26→15:33)
[2019-04-25] MEDS: SPIRONOLACTONE 100 MG TAB PO SCH (08:27)
[2019-04-25] MEDS: ENOXAPARIN INJ 40 MG/0.4 ML SYR SQ SCH (08:27)
[2019-04-25] MEDS: ESCITALOPRAM OXALATE 10 MG TAB PO SCH (08:27)
[2019-04-25] MEDS: BusPIRone 15 MG TAB PO SCH (08:27)
[2019-04-25] MEDS: MAGNESIUM OXIDE 400 MG TAB PO SCH (08:27)
[2019-04-25] MEDS: HYDROCORTISONE 10 MG TAB PO SCH (08:27)
[2019-04-25] MEDS: INSULIN ASPART 100 UNITS/ML 3 ML PEN SC SCH ×2 (08:40→12:40)
[2019-04-25] MEDS: INSULIN GLARGINE SOLOSTAR 100 UNITS/ML 3 ML PEN SC SCH (08:41)
[2019-04-25] MEDS ORDERED: POTASSIUM CHLORIDE 20 MEQ TABCR PO ONE (09:00)
[2019-04-25] MEDS: LOPERAMIDE HCL 2 MG CAP PO PRN (11:19)
--- NOTE | 2019-04-25 13:34 | Discharge Summary ---
Date of Service April 25, 2019 Admission HPI Per Admitting Provider 54-year-old female with history of adrenal insufficiency, DM 2, hyperlipidemia, trigeminal neuralgia, anxiety presents with altered mental status and shortness of breath x3 days. Per her children she was unable to make dinner on Thursday as she was not feeling well. She was complaining of having heartburn and nausea at the time in addition to being short of breath. Thursday she slept most of the day and today as well. She was noted to be tripping and uncoordinated. Her daughter says she slipped over pillow but did not hit her head. She reports being cold, having a headache and dry cough. She is not sure she has had a fever. Denies any lightheadedness, chest pain, abdominal pain, vomiting, diarrhea, constipation, hematochezia, melena, hematuria, dysuria. Patient reports taking her diabetic medications and all other medications. She also reports increasing her hydrocortisone dose from 40 mg to 50 mg on Thursday as she relates she was not feeling well. However she did not have much to eat or drink on Thursday and today. Admission Exam Per Admitting Provider General: In mild distress Neuro: A&O x 4 HEENT: dry oral mucosa Pulm: CTAB equal breath sounds bilaterally, tachypneic to 30s, ketotic breath CV: mildly tachycardic, regular rhythm no m/r/g Abdomen:+BS, no TTP in all quadrants, non-distended LE: no LE edema, no calf TTP Principal Diagnosis Diabetic ketoacidosis Community acquired pneumonia Discharge Exam General: Alert, oriented. No acute distress, sitting up in bed reading. Skin: No noted rashes or bruises Psych: Appropriate mood and affect Neuro: No gross deficits HEENT: NC/AT Chest: Nontender to palpation. CV: RRR, Normal s1, s2. No murmurs appreciated Resp: Breath sounds clear bilaterally, no increased effort of breathing. No crackles/rhonchi/rales. Abdomen: Soft, nontender. No guarding. No organomegaly appreciated. Extremities: No edema in lower extremities bilaterally. Discharge Data Allergies Allergy/AdvReac Type Severity Reaction Status Date / Time empagliflozin AdvReac Severe DKA Verified 04/20/19 00:01 Consultations 04/19/19 06:38 Consult Mercerizing Range Controller Routine Ordered Studies 04/18/19 23:58 CT angio chest PE protocol Urgent 04/19/19 00:46 CT head/brain wo con Urgent 04/19/19 10:40 US abdomen limited Stat Hospital Course (1) DKA (diabetic ketoacidoses): Mai Briceño is a 54 y/o F w/ a PMHx of type 2 diabetes, hyperlipidemia, trigeminal neuralgia/atypical facial pain, anxiety and questionable adrenal insufficiency who was admitted with diabetic ketoacidosis and community acquired pneumonia. She was admitted on Apr 19 and discharged on Apr 25 2019. DKA (diabetic ketoacidoses) secondary to the exogenous steroid for ?adrenal insufficiency -likely due to the exogenous use of steroids, further complicated by acute pneumonia (see below) -Home Jardiance (Empogliflozin) also a possible culprit (particularly since she is a type 2 diabetic but did appear to have DKA); discontinued on discharge -Resolved on discharge Diabetes Mellitus Type II -HgbA1c of 10.8 -Diabetic medication regimen changed to basal bolus insulin on discharge. -Pt started on 15U of basal Lantus every night (can titrate up or decrease based on how she feels (sweats, nausea, etc) in the evening. -Started on 5U of short acting Novolog with each meal or adjusting and carb counting by giving 1U of Novolog for every 12-15mg of carbs. -Given prescription for Diabetic glucometer, lancets and testing strips -Given 30 day supply -Followup with PCP recommended for continued monitoring Hypokalemia Essentially resolved on discharge- 3.4 level noted with 40mg PO of potassium chloride administered the day of discharge. Supplemented with IV potassium phosphate and PO potassium chloride Recheck recommended at PCP followup within the next week. Community Acquired Pneumonia Acute hypoxic respiratory failure on presentation 04/22 WBC 9.81. Blood cultures x2 negative Sat 95% room air. Finished with Azithromycin 500 mg PO for 5 day course ? Adrenal Insufficiency -Reviewed outpatient records -Unclear whether this diagnosis has been established -was put on dexamethasone for some time to treat atypical facial pain and then for concern of adrenal insufficiency has been on hydrocortisone. No official evaluation has been done. -Cont home dose 40 mg hydrocortisone. -to f/u with endocrine for evaluation as already scheduled Atypical facial pain/?Trigeminal Neuralgia/Headache -Continue oxycodone 10 mg PRN -Continue amitriptyline 125 mg daily -Continue gabapentin 800 mg PO QID -close PCP followup for review of medications strongly recommended. -can consider pain management referral. Diarrhea Diarrhea may be secondary to opiate withdrawal as she takes a significant amount of opiates at home. C. Diff negative on the Treating with imodium currently; can continue OTC Hypothyroidism On admission, TSH .273. Free T4 1.18 -Continue home Synthroid 100 mcg PO Elevated LFTs Elevated on admission -Hepatitis panel negative -04/22: AST-31, ALT-43 Anxiety -Restarted buspirone 15 mg PO daily, prn alprazolam .5 mg, and escitalopram 10 mg daily (2) Anxiety: (3) Hypertension: (4) LAFB (left anterior fascicular block): (5) CAP (community acquired pneumonia): (6) Diabetes: (7) Adrenal insufficiency: (8) Trigeminal neuralgia: (9) Hypothyroidism: (10) Elevated LFTs: Total Time Total Time Spent Total Time Spent (In Minutes): >30 Discharge Plan Discharge Items Patient Disposition: Home - Self-Care Reason For Visit: DKA, PNEUMONIA Discharge Diagnosis: Diabetic Ketoacidosis, Pneumonia Activity: Per Instructions section Non-emergency contact: Primary Care Provider Call non-emergency contact if: your symptoms worsen and you have a fever Follow-up/Referrals: Elissa Davis PA-C [Primary Care Provider] - 04/29/19 10:10 am (Please, follow up with Bianca Davis's associate, Mary Ellen RAMIREZ, on ThursdayApril 29 at 10:10 am. UNFORTUNATELY, THERE WERE NO OPENINGS AT THE [facility] OFFICE SO THIS APPOINTMENT WILL BE AT THE [facility] LOCATION. THE OFFICE IS LOCATED IN [address] OF THE [facility], NEXT TO THIS [facility]. *If you need to change this appointment, call the office at [phone].) Diet: Carb Consistent or DM2 Addtl Attending Provider Instructions: Ms. Briceño, you were admitted because your blood sugars were uncontrolled putting you into diabetic ketoacidosis likely secondary to the acute pneumonia you developed in combination with your use of chronic steroids. Diabetic Ketoacidosis -We treated you and your diabetic ketoacidosis resolved. -We also changed your diabetic medication regimen to as follows: -Continue taking your home metformin 500mg twice daily. -STOP taking your home empagliflozin (Jardiance). -START taking the long acting Insulin Glargine (Lantus 15 units ONCE daily at bedtime). As discussed, you can adjust the dose based on how you feel around evening time. -Take the short acting Insulin Aspart 5U before each meal and carb count as instructed. As we discussed, give 1 Unit of Aspart insulin for every 12-15mg of carbs ingested. Remember to check your blood glucose levels about 2hours after eating to ensure your blood sugar levels are between 100-150. Adjust your insulin by taking less if your blood sugar is less than 100 or taking more if your blood sugar level is greater than 150 two hours after eating. -continue to monitor your glucose levels daily -We recommend close followup with your primary care provider for continued monitoring and for your diabetic medication prescriptions as you are only being discharged with a 30 day supply. Acute Pneumonia -You were diagnosed with a pneumonia which improved after antibiotic treatment. -You completed the antibiotic course while hospitalized and your symptoms improved tremendously. -We recommend that you followup closely with your primary care provider for this. Hypokalemia -Your potassium was noted to be very low while hospitalized. -We repleted your levels before discharge. -We recommend followup with your primary doctor within the next 7 days for continued monitoring of your potassium and other electrolyte levels. Nausea -we prescribed Phenergan for your nausea. -Please take as directed and NEEDED Atypical Facial Pain/Anxiety/Hypothyroidism -Continue taking your other home medications as directed before hospitalization. -We recommend following up with a pain management physician. -However, close primary care provider followup is recommended to determine whether any changes need to be made and for close review of your medications. Please seek emergent medical care should your symptoms return, or you suddenly develop chest pain/SOB/palpitations. It was a pleasure taking care of you during your stay here! Pending Studies at Discharge: No Stand-Alone Forms: My [employer], Smoking Cessation Medications and DC Order Prescriptions: New Novolog Flexpen U-100 Insulin 100 unit/mL (3 mL) Insulin Pen 5 units SC TID 30 Days Qty: 4.5 RF: 0 Lantus Solostar U-100 Insulin 100 unit/mL (3 mL) Insulin Pen 15 units SC DAILY 30 Days Qty: 4.5 RF: 0 promethazine 12.5 mg tablet 12.5 mg PO QID PRN (Reason: nausea) 7 Days Qty: 24 RF: 0 Continued gabapentin 800 mg Tablet 800 mg PO QID RF: 0 amitriptyline 100 mg Tablet 100 mg PO HS RF: 0 amitriptyline 25 mg Tablet 25 mg PO HS RF: 0 spironolactone 100 mg Tablet 100 mg PO DAILY RF: 0 buspirone 15 mg Tablet 15 mg PO BID RF: 0 escitalopram oxalate 10 mg Tablet 10 mg PO DAILY RF: 0 levothyroxine [Synthroid] 100 mcg Tablet 100 mcg PO DAILY RF: 0 oxycodone 10 mg Tablet See Rx Instructions .ROUTE .COMPLEX PRN (Reason: Pain) RF: 0 alprazolam 0.5 mg Tablet 0.5 mg PO DAILY PRN (Reason: Anxiety) RF: 0 zolpidem [Ambien] 10 mg Tablet 10 mg PO HS PRN (Reason: Sleep) RF: 0 metformin 500 mg Tablet 500 mg PO BID RF: 0 hydrocortisone 10 mg Tablet 10 mg PO DIRECTED RF: 0 Discontinued Jardiance 10 mg Tablet 10 mg PO DAILY RF: 0 Discharge Orders: Discharge Order (Routine); Ordered 04/25/19 Ordered By: Ginny Weir Admission Data Admit Date/Time: 04/19/19 03:01 Attending Provider: Hair Shipley Admit Provider: Cherri Owusu Primary Care Provider: Elissa Davis Other Providers: Cherri Owusu ; Alfredo Grubbs ; Carolyn Barraza Other Interventions: Discharge Summary Assessment (RN) Last Done: 04/25/19 14:47 DC Date/Time DO NOT enter until pt leaves facility: 04/25/19 15:57 Supervising Physician Co-Signing Physician Notes I personally examined the patient and verified all franklin points of history and exam, discussed case, and agree with decision making with Dr Weir. Feeling better and breathing better. Feels up to going home. Does still have some diarrhea but nothing that is that bad. Extensive discussion about diabetes and ongoing management. She notes that her last A1c she recalls from sometime in the summer was in the high fives, and relates that her sugar control dramatically worsened when she was on steroids and she would like to get off. We have an extensive discussion about why to care about diabetes management, as well as the critical importance of diet in this, as well as reviewing basal bolus insulin dosing for home. She expresses a good understanding of all of the above. We discussed further thoughts about seeing pain management to try to intervene with her facial pain, but she notes she harbors grave concerns about being taken off of narcotics without any replacement therapy improving her pain. Vitals noted, in general she is awake and alert pleasant no distress. HEENT normal cephalic atraumatic mucous members moist. Breathing unlabored no accessory muscle use good effort. Skin shows no rashes no pallor or icterus. Neuro shows no focal deficits. DKAgiven that she is a type II diabetic but did have a very severe ketoacidosis, I suspect her Jardiance was a significant culprit, with high sugars being worsened by her steroid use. This is fortunately improved and she is now stable for home. Uncontrolled type 2 diabetesthis appears to have mostly been related to her steroid use, given that she relates a recent A1c about 5 points lower than her current one. We have an extensive discussion about "high sugars clog arteries" and about diet control, insulin management, and monitoring. For now while she still on steroids she does appear to have benefit from insulin, will utilize basal bolus dosing. For now we will have her on 15 of Lantus at bedtime, and either with "soft carb counting" 5 of log at each meal as a starting point, varying based on the carbohydrates she is going to eat; or with actual weighing and measuring a ratio of approximately 1 unit of insulin for every 12 g of carbohydrates. With either method we talked about the critical importance of monitoring postprandial glucoses to "grade her work" with postprandial goal of about 100-150. Given that she eats on more or less a dinner only intermittent fasting schedule, we discussed following sugars and symptoms to watch for throughout her workday that would be suggestive of hypoglycemia. Answered all questions the best my ability and to her satisfaction. Facial painshchristiano is currently on steroids for this, certainly the steroids appear to be culprit for her uncontrolled sugar, although the Jardiance was likely the culprit for the actual DKA. We discussed that pain management might have something more to offer, but she notes that she is very fearful of going because while she does not particularly want to be on narcotics indefinitely it does at least help with the pain some, and she is fearful that if she goes to pain management and they would like her to stop the narcotics then she could have uncontrolled pain with no management plan. I discussed that this would unlikely be the case, as her PCP could continue to "own" the overall situation with the pain simply asking pain management for further ability to intervene, and then wean the narcotics if other interventions or methods are successful. She notes she would consider this. Resident Activity Tracking Resident Involvement: Resident Care Provided Care Provided: Adult Hospital Medicine
--- NOTE | 2019-04-25 17:20 | Billing Data ---
Coding Level of Care Code D/C Day Management >30 mins
== END 2019-04-25 15:57 | disposition home or self-care (01) | DRG 637 ==
LOC: ED 23:09 → 1E 04-19 03:01 → SUATTDRO 04-19 03:01 → 1E 04-19 03:30 → 2S 04-21 10:25

== ENCOUNTER 2022-03-17 22:32 | Inpatient (IN) ==
[2022-03-18] MEDS: SODIUM CHLORIDE 0.9% 1000ML 1,000 ML IV SCH ×2 (00:49→11:43)
--- NOTE | 2022-03-18 00:53 | Emergency Department Note ---
History of Present Illness General Chief complaint: Fall Stated complaint: FALL,HIT HEAD,CONFUSION,LOSS OF BALANCE Time Seen by Provider: 03/18/22 00:32 Source: patient and family Mode of arrival: wheelchair Limitations: no limitations History of Present Illness Provider complaint: Fatigue, fall, head injury Maximum Pain Intensity: 6 This a 57-year-old female who presents after fall this evening in which she struck her head but does not lose consciousness. Patient states she falls frequently and was unable to catch her self this time. She states she has many balance issues. Patient states she has been more fatigued in recent days with a sore throat and a cough and thought she was ill. She denies any overt known sick contact. Patient states she has been started on medication to help with her balance issues. Patient denies any concern for injury given the fall this evening. She states the cough has been dry nonproductive. She states this evening she also felt more short of breath. She denies nasal congestion, rhinorrhea, fevers, chills, headaches, vision changes. Denies chest pain, palpitations, abdominal pain, back pain, vomiting or diarrhea. Patient states she did give herself a stress dose of steroids per her protocol this evening. Home Medications Medication Instructions Recorded Confirmed Type buspirone 15 mg tablet 15 mg PO BID 04/19/19 03/18/22 History gabapentin 800 mg tablet 800 mg PO QID 04/19/19 03/18/22 History zolpidem 10 mg tablet (Ambien) 10 mg PO HS PRN Sleep 04/19/19 03/18/22 History codeine sulfate 60 mg tablet 60 mg PO HS 02/02/20 03/18/22 History drospirenone 3 mg-ethinyl 1 tab PO DAILY 02/02/20 03/18/22 History estradiol 0.03 mg tablet (Alice (28)) hydrocortisone 20 mg tablet 20 mg PO QAM 02/02/20 03/18/22 History hydrocortisone 5 mg tablet 5 mg PO QPM 02/02/20 03/18/22 History insulin aspart U-100 100 unit/mL 1 sliding scale dose subcut UD 02/02/20 03/18/22 History (3 mL) subcutaneous pen (Novolog Flexpen U-100 Insulin aspart) insulin detemir U-100 100 unit/mL 38 unit subcut BID 02/02/20 03/18/22 History subcutaneous solution (Levemir U-100 Insulin) levothyroxine 100 mcg tablet 100 mcg PO QAM 02/02/20 03/18/22 History (Synthroid) oxycodone 15 mg tablet 15 mg PO Q4H PRN Pain 02/02/20 03/18/22 History spironolactone 100 mg tablet 100 mg PO QAM 02/02/20 03/18/22 History amitriptyline 50 mg tablet See Rx Instructions .Route .COMPLEX 03/18/22 03/18/22 History diazepam 5 mg tablet 5 mg PO QID 03/18/22 03/18/22 History somatropin 30 mg/3 mL (10 mg/mL) 1.8 mg subcut DAILY 03/18/22 03/18/22 History subcutaneous pen injector (Norditropin FlexPro) Allergies Allergy/AdvReac Type Severity Reaction Status Date / Time empagliflozin Allergy Severe DKA Verified 03/18/22 02:01 adhesive tape Allergy Mild SKIN Verified 03/18/22 02:01 SENSITIVITY Past Med/Surg History Medical History (Updated 03/19/22 @ 08:42 by Maris Olsen DO) Adrenal abnormality LOW ADRENAL FUNCTION Adrenal insufficiency Anxiety Diabetes mellitus, type 2 Environmental allergies MOLD Eye pressure ELEVATED Hx of gastric ulcer Hx of migraines Hypothyroidism Lumbar herniated disc PCOS (polycystic ovarian syndrome) Trigeminal neuralgia Surgical History History of colonoscopy History of esophagogastroduodenoscopy (EGD) History of right cataract surgery History of tonsillectomy Family History Father Family history of diabetes mellitus Other Cancer Hearing loss No family history of allergies No family history of bleeding disorder No significant family history Denies family history of Heart disease Hypertension Stroke Asthma Social History Smoking Status: Never smoker Second Hand Exposure: No; Do You Dip or Chew Tobacco: No; Tobacco Cessation Education Requested by Patient: No Hx Alcohol Use: No Hx Substance Use: No Preferred Language: Tunisian Communication Ability: Effective Cloth Doffer Required: No Beliefs That Will Affect Care: None marital status: Single Current Living Situation: Alone Current Living Situation Comment: DAUGHTER current occupational status: employed 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 How many Children do You have: 2 Other Information That Helps Us Care for You: No Feels Safe at Home: Yes Safety Concerns: Feels Safe At This Time Assistive Devices: None Review of Systems A total of 10 systems reviewed and were otherwise negative All systems reviewed & are unremarkable except as noted in HPI & below Physical Exam Vital Signs Vital Signs - 24 hr 03/17/22 22:41 03/18/22 00:45 03/18/22 00:45 Temperature 36.2 C L Temperature Source Temporal Artery Scan Pulse Rate 110 H Pulse Rate [Apical] 94 H Pulse Rhythm Regular Pulse Strength Normal Respiratory Rate 20 21 Respiratory Effort / Characteristics Non-Labored Spontaneous Non-Labored Respiratory Depth Normal Blood Pressure 113/64 Blood Pressure [Left Arm] 118/75 Blood Pressure Mean 80 Blood Pressure Mean [Left Arm] 89 Blood Pressure Position Sitting Pulse Oximetry 96 92 96 Oxygen Delivery Method Room Air Room Air Room Air Oxygen Flow Rate Sepsis Recent Fever Within 48 Hours No Sepsis New/Unexplained Change in Mental Status N/A Sepsis Action Taken by Nursing No Action Required 03/18/22 01:43 03/18/22 01:46 03/18/22 03:00 Temperature Temperature Source Pulse Rate Pulse Rate [Apical] 87 Pulse Rhythm Pulse Strength Respiratory Rate 17 Respiratory Effort / Characteristics Non-Labored Respiratory Depth Blood Pressure Blood Pressure [Left Arm] 132/79 Blood Pressure Mean Blood Pressure Mean [Left Arm] 96 Blood Pressure Position Pulse Oximetry 88 L 95 94 Oxygen Delivery Method Room Air Nasal Cannula Nasal Cannula Oxygen Flow Rate 2 2 Sepsis Recent Fever Within 48 Hours Sepsis New/Unexplained Change in Mental Status Sepsis Action Taken by Nursing 03/18/22 04:00 03/18/22 06:00 03/18/22 07:30 Temperature Temperature Source Pulse Rate Pulse Rate [Apical] 86 82 90 Pulse Rhythm Pulse Strength Respiratory Rate 16 16 18 Respiratory Effort / Characteristics Respiratory Depth Blood Pressure Blood Pressure [Left Arm] 121/72 122/74 112/74 Blood Pressure Mean Blood Pressure Mean [Left Arm] 88 90 86 Blood Pressure Position Pulse Oximetry 91 92 91 Oxygen Delivery Method Room Air Room Air Oxygen Flow Rate Sepsis Recent Fever Within 48 Hours Sepsis New/Unexplained Change in Mental Status Sepsis Action Taken by Nursing GENERAL: alert, ill appearing, well nourished, no distress, non-toxic, multiple piercings EYE EXAM: normal conjunctiva, PERRL and EOM's grossly intact OROPHARYNX: no exudate, no erythema, lips, buccal mucosa, and tongue normal and mucous membranes are moist NECK: supple, no nuchal rigidity, no adenopathy, non-tender LUNGS: Clear to auscultation. Normal chest wall mechanics, no w/r/r HEART: no murmurs, S1 normal and S2 normal ABDOMEN: abdomen soft, non-tender, normo-active bowel sounds, no masses, no rebound or guarding. BACK: Back is symmetrical on inspection and there is no deformity, no midline tenderness, no CVA tenderness. SKIN: no rashes and no bruising UPPER EXTREMITIES: upper extremities are grossly normal. FROM, nml pulses b/l. LOWER EXTREMITIES: No pitting edema. FROM, nml pulses b/l. NEURO EXAM: Normal sensorium, cranial nerves II-XII grossly intact, normal speech, no gross weakness of arms, no gross weakness of legs. Gross sensation intact. Course Course 0525: Patient updated on results. She has still required oxygen 1 lpm to maintain sats. Patient denies any history of tobacco abuse or obstructive sleep apnea. She does not wear home oxygen. Patient states she does otherwise feel improved, and is asking to eat something. 0740: Patient updated on additional results. She did attempt to stand at bedside and fell back onto the bed and slid down onto the floor. Patient states she feels worse. She states she does still does feel it is slightly hard to breathe although oxygen sats are reassuring at this time. I suspect some of the initial variability in her oxygen readings may have been from the acrylic nails on her fingers. Administered Medications Amitriptyline HCl (Amitriptyline Hcl 50 Mg Tab) 50 mg PO QAM [facility] Stop: 04/17/22 10:44 Last Admin: 03/18/22 19:57 Dose: 50 mg Documented By: Admin: 03/18/22 11:18 Dose: 50 mg Documented By: PARK Amitriptyline HCl (Amitriptyline Hcl 100 Mg Tab) 200 mg PO HS [facility] Stop: 04/17/22 20:59 Last Admin: 03/18/22 19:55 Dose: 200 mg Documented By: FH Buspirone HCl (Buspirone 15 Mg Tab) 15 mg PO BID [facility] Stop: 04/17/22 10:44 Last Admin: 03/18/22 19:56 Dose: 15 mg Documented By: Admin: 03/18/22 11:18 Dose: 15 mg Documented By: PARK Codeine Sulfate (Codeine Sulfate 30 Mg Tab) 60 mg PO HS PRN PRN Reason: Pain Stop: 04/01/22 11:25 Last Admin: 03/18/22 21:07 Dose: 60 mg Documented By: BHANU Diazepam (Diazepam 5 Mg Tablet) 5 mg PO QID [facility] Stop: 04/17/22 10:33 Last Admin: 03/18/22 21:31 Dose: 5 mg Documented By: Admin: 03/18/22 17:24 Dose: 5 mg Documented By: Admin: 03/18/22 15:54 Dose: Not Given Documented By: Admin: 03/18/22 11:18 Dose: 5 mg Documented By: PARK Enoxaparin Sodium (Enoxaparin Inj 40 Mg/0.4 Ml Syr) 40 mg SQ Q24H [facility] Stop: 04/17/22 10:44 Last Admin: 03/18/22 11:19 Dose: 40 mg Documented By: PARK Gabapentin (Gabapentin 800 Mg Tab) 800 mg PO QID [facility] Stop: 04/17/22 10:44 Last Admin: 03/18/22 19:56 Dose: 800 mg Documented By: Admin: 03/18/22 17:24 Dose: 800 mg Documented By: Admin: 03/18/22 15:54 Dose: Not Given Documented By: Admin: 03/18/22 11:18 Dose: 800 mg Documented By: PARK Ceftriaxone Sodium 2,000 mg/ (Dextrose) 70 mls @ 100 mls/hr IV Q24H [facility]; Protocol Stop: 03/24/22 05:59 Last Infusion: 03/19/22 07:08 Dose: 0 mls/hr Documented By: Admin: 03/19/22 06:26 Dose: 100 mls/hr Documented By: BHANU Insulin Aspart (Insulin Aspart Per Unit) 0 units SC ACHS [facility] Stop: 04/17/22 11:29 Last Admin: 03/18/22 21:07 Dose: 8 units Documented By: BHANU Co-signed By: TMD Admin: 03/18/22 17:30 Dose: 13 units Documented By: PARK Co-signed By: LISSETTE Admin: 03/18/22 11:36 Dose: 14 units Documented By: CA Co-signed By: LISSETTE Insulin Glargine (Lantus Per Unit Charge) 38 units SQ BID [facility] Stop: 04/17/22 10:59 Last Admin: 03/18/22 21:07 Dose: 38 units Documented By: BHANU Co-signed By: TMD Admin: 03/18/22 11:36 Dose: 38 units Documented By: PARK Co-signed By: LISSETTE Levothyroxine Sodium (Levothyroxine Sodium 100 Mcg Tablet) 100 mcg PO DAILYBB [facility] Stop: 04/17/22 10:59 Last Admin: 03/18/22 19:57 Dose: 100 mcg Documented By: Admin: 03/18/22 11:18 Dose: 100 mcg Documented By: PARK Miscellaneous (Oral Contraceptive-Order Awaiting Action) 1 each N/A QS [facility] Stop: 04/17/22 15:59 Last Admin: 03/18/22 23:50 Dose: Not Given Documented By: Admin: 03/18/22 15:54 Dose: Not Given Documented By: PARK Justincellaneous (Somatropin-Order Awaiting Action) 1 each N/A QS [facility] Stop: 04/17/22 15:59 Last Admin: 03/18/22 23:50 Dose: Not Given Documented By: Admin: 03/18/22 15:54 Dose: Not Given Documented By: PARK Oxycodone HCl (Oxycodone Hcl Ir 5 Mg Tab (Immediate Release)) 15 mg PO Q4H PRN PRN Reason: Pain Stop: 04/01/22 10:33 Last Admin: 03/19/22 05:56 Dose: 15 mg Documented By: Admin: 03/18/22 21:31 Dose: 15 mg Documented By: Admin: 03/18/22 18:19 Dose: 15 mg Documented By: PARK Potassium Chloride (Potassium Chloride Crtab 20 Meq Tabcr) 20 meq PO BID [facility] Stop: 03/19/22 09:01 Last Admin: 03/18/22 20:02 Dose: 20 meq Documented By: Admin: 03/18/22 13:05 Dose: 20 meq Documented By: PARK Discontinued Medications Hydrocortisone Sodium Succinate (Hydrocortisone Sod Succinate 100 Mg/2 Ml Vial) 100 mg IV NOW STA Stop: 03/18/22 07:58 Last Admin: 03/18/22 08:13 Dose: 100 mg Documented By: RADHA Sodium Chloride (Nss 1000ml) 1,000 mls @ 125 mls/hr IV .Q8H [facility] Stop: 04/17/22 00:44 Last Admin: 03/18/22 11:43 Dose: Not Given Documented By: Infusion: 03/18/22 10:09 Dose: 0 mls/hr Documented By: Admin: 03/18/22 00:49 Dose: 125 mls/hr Documented By: TIMOTHY Ceftriaxone Sodium (Rocephin) 2,000 mg in 70 mls @ 140 mls/hr IV NOW STA Stop: 03/18/22 03:42 Last Infusion: 03/18/22 04:05 Dose: 0 mls/hr Documented By: Admin: 03/18/22 03:35 Dose: 140 mls/hr Documented By: SYLVIA Sodium Chloride (Nss 1000ml) 1,000 mls @ 999 mls/hr IV .Q1H1M ONE Stop: 03/18/22 05:14 Last Infusion: 03/18/22 05:25 Dose: 0 mls/hr Documented By: Admin: 03/18/22 04:24 Dose: 999 mls/hr Documented By: SYLVIA Sodium Chloride (Nss 1000ml) 1,000 mls @ 125 mls/hr IV .Q8H [facility] Stop: 04/17/22 05:44 Last Infusion: 03/18/22 13:26 Dose: 0 mls/hr Documented By: Admin: 03/18/22 06:11 Dose: 125 mls/hr Documented By: SYLVIA Potassium Chloride/Sodium Chloride (Normal Saline W/20 Meq Kcl) 20 meq in 1,000 mls @ 100 mls/hr IV .Q10H [facility] Stop: 03/18/22 20:44 Last Infusion: 03/18/22 21:44 Dose: 0 mls/hr Documented By: Infusion: 03/18/22 20:57 Dose: 100 mls/hr Documented By: Admin: 03/18/22 11:18 Dose: 100 mls/hr Documented By: PARK Hydrocortisone Sodium (Succinate 50 mg/ Syringe) 1 mls @ 4 mls/min IV Q8H [facility] Stop: 03/19/22 03:01 Last Admin: 03/19/22 05:56 Dose: 4 mls/min Documented By: Admin: 03/18/22 19:55 Dose: 4 mls/min Documented By: Admin: 03/18/22 13:05 Dose: 4 mls/min Documented By: PARK Ioversol (Optiray 320 500ml) 120 ml IV ONCE ONE Stop: 03/18/22 05:59 Last Admin: 03/18/22 05:58 Dose: 120 ml Documented By: RACHANA Medical Decision Making Differential Diagnosis Differential Diagnosis includes but is not limited to dehydration, stroke, anemia, hypoglycemia, hyponatremia, hypernatremia, urinary tract infection, pneumonia, bronchitis, sepsis, gastroenteritis, additional abdominal pathology, metabolic abnormalities and infections. Medical Records Attestation: I reviewed the patient's medical records. Home Medications Current Medication List: was personally reviewed by me Laboratory Data Attestation: I reviewed the patient's lab results. Result diagrams: 03/19/22 07:18 03/19/22 07:18 Lab Results 03/18/22 03/18/22 03/18/22 Range/Units 00:45 00:45 00:59 WBC 16.54 H (4.8-10.8) K/ul RBC 4.65 (3.93-5.22) M/uL Hgb 16.4 H (12.0-16.0) g/dl Hct 45.9 H (34.1-44.9) % MCV 98.7 (80.0-100.0) fL MCH 35.3 H (25.0-34.0) pg MCHC 35.7 (32.0-36.0) g/dL RDW Std Deviation 42.7 (36.4-46.3) fL RDW Coeff of Juan 11.7 (11.5-14.5) % Plt Count 244 (130-400) K/uL MPV 10.8 (9.4-12.3) fL Immature Gran % (Auto) 0.5 % Neut % (Auto) 56.7 % Lymph % (Auto) 32.3 % [place] % (Auto) 8.4 % Eos % (Auto) 1.6 % Baso % (Auto) 0.5 % Neut # (Auto) 9.36 H (1.4-6.5) K/uL Lymph # (Auto) 5.35 H (1.2-3.4) K/uL [place] # (Auto) 1.39 H (0.24-0.82) K/uL Eos # (Auto) 0.26 (0-0.50) K/uL Baso # (Auto) 0.09 (0-0.2) K/uL Immature Gran # (Auto) 0.09 H (0.00-0.02) K/uL Sodium 135 L (136-145) mmol/L Potassium 3.2 L (3.5-5.1) mmol/L Chloride 94 L (98-107) mmol/L Carbon Dioxide 31 (21-32) mmol/L Anion Gap 10 (3-11) BUN 15 (6-23) mg/dl Creatinine 1.12 (0.6-1.2) mg/dl Est Cr Clr Drug Dosing 68.8 ml/min Est GFR ( Amer) 63.1 ml/min Est GFR (Non-Af Amer) 54.5 ml/min BUN/Creatinine Ratio 13.4 (10-20) Glucose 174 H (70-99(Fasting)) mg/dl Calcium 9.9 (8.5-10.1) mg/dl Total Bilirubin 0.4 (0.2-1.0) mg/dl AST 79 H (13-39) U/L ALT 59 H (7-52) U/L Alkaline Phosphatase 121 H (34-104) U/L Troponin I High Sens (0-14) pg/ml Total Protein 7.2 (6.0-8.3) gm/dl Albumin 4.2 (3.4-5.0) gm/dl Globulin 3.0 (2.5-4.0) gm/dl Albumin/Globulin Ratio 1.4 (0.9-2) Urine Color Urine Appearance (Clear) Urine pH (4.5-7.5) Ur Specific [place] (1.000-1.030) Urine Protein (Negative) Urine Glucose (UA) (Negative) Urine Ketones (Negative) Urine Blood (Negative) Urine Nitrite (Negative) Urine Bilirubin (Negative) Urine Urobilinogen (Negative) Ur Leukocyte Esterase (Negative) Urine WBC (Auto) (0-5) /hpf Urine RBC (Auto) (0-4) /hpf U Hyaline Cast (Auto) (0-5) /lpf U Epithel Cells (Auto) (0-5) /lpf Urine Bacteria (Auto) (Negative) SARS-CoV-2 (PCR) NEGATIVE (Negative) Influenza Type A (PCR) Negative (Neg) Influenza Type B (PCR) Negative (Neg) RSV (RT-PCR) Negative (Neg) 03/18/22 03/18/22 Range/Units 02:26 06:10 WBC (4.8-10.8) K/ul RBC (3.93-5.22) M/uL Hgb (12.0-16.0) g/dl Hct (34.1-44.9) % MCV (80.0-100.0) fL MCH (25.0-34.0) pg MCHC (32.0-36.0) g/dL RDW Std Deviation (36.4-46.3) fL RDW Coeff of Juan (11.5-14.5) % Plt Count (130-400) K/uL MPV (9.4-12.3) fL Immature Gran % (Auto) % Neut % (Auto) % Lymph % (Auto) % [place] % (Auto) % Eos % (Auto) % Baso % (Auto) % Neut # (Auto) (1.4-6.5) K/uL Lymph # (Auto) (1.2-3.4) K/uL [place] # (Auto) (0.24-0.82) K/uL Eos # (Auto) (0-0.50) K/uL Baso # (Auto) (0-0.2) K/uL Immature Gran # (Auto) (0.00-0.02) K/uL Sodium (136-145) mmol/L Potassium (3.5-5.1) mmol/L Chloride (98-107) mmol/L Carbon Dioxide (21-32) mmol/L Anion Gap (3-11) BUN (6-23) mg/dl Creatinine (0.6-1.2) mg/dl Est Cr Clr Drug Dosing ml/min Est GFR ( Amer) ml/min Est GFR (Non-Af Amer) ml/min BUN/Creatinine Ratio (10-20) Glucose (70-99(Fasting)) mg/dl Calcium (8.5-10.1) mg/dl Total Bilirubin (0.2-1.0) mg/dl AST (13-39) U/L ALT (7-52) U/L Alkaline Phosphatase (34-104) U/L Troponin I High Sens 5.5 (0-14) pg/ml Total Protein (6.0-8.3) gm/dl Albumin (3.4-5.0) gm/dl Globulin (2.5-4.0) gm/dl Albumin/Globulin Ratio (0.9-2) Urine Color Yellow Urine Appearance Clear (Clear) Urine pH 5.5 (4.5-7.5) Ur Specific Dex[place] 1.013 (1.000-1.030) Urine Protein Negative (Negative) Urine Glucose (UA) Negative (Negative) Urine Ketones Negative (Negative) Urine Blood Negative (Negative) Urine Nitrite Positive A (Negative) Urine Bilirubin Negative (Negative) Urine Urobilinogen Negative (Negative) Ur Leukocyte Esterase Trace H (Negative) Urine WBC (Auto) 5-10 H (0-5) /hpf Urine RBC (Auto) 0-4 (0-4) /hpf U Hyaline Cast (Auto) 1-5 (0-5) /lpf U Epithel Cells (Auto) >30 H (0-5) /lpf Urine Bacteria (Auto) 4+ H (Negative) SARS-CoV-2 (PCR) (Negative) Influenza Type A (PCR) (Neg) Influenza Type B (PCR) (Neg) RSV (RT-PCR) (Neg) Imaging Data Radiologist's Impression: Head CT 03/18/22 01:03 CT head/brain wo con CLINICAL HISTORY: 57 years-old Female with trauma. Acute head trauma status post fall TECHNIQUE: Multiple axial CT images of the head were obtained without contrast. A dose lowering technique was utilized adhering to the principles of ALARA. CT DOSE: 614.27 mGy.cm COMPARISON: 03/24/2021 FINDINGS: No acute intracranial hemorrhage, midline shift, intracranial mass, hydrocephalus, territorial ischemia or abnormal extra-axial collection. Streak artifact from the patient's earrings limits the study. Mild involutional changes. Mild white matter hypodensities may represent a component of chronic microvascular ischemic disease. The calvarium is intact. The paranasal sinuses, mastoid air cells, and middle ear cavities are clear. IMPRESSION: No acute intracranial abnormality or calvarial fracture. ACT 112: Negative or not required by law. The above report was generated using voice recognition software. It may contain grammatical, syntax or spelling errors. Electronically signed by: Tyler Pinon M.D. 03/18/2022 6:50 AM Chest CTA 03/18/22 05:33 CT angio chest PE protocol CT DOSE: 701.36 mGy.cm HISTORY: 57 years-old Female with PE. Acute shortness of breath TECHNIQUE: Multiple CTA images of the chest were obtained after the intravenous administration of 120 ml Optiray. Coronal and sagittal MIPS were obtained from the axial data set and were submitted for review. All measurements were obtained according to NASCET criteria. A dose lowering technique was utilized adhering to the principles of ALARA. COMPARISON: CTA chest 04/09/2019 FINDINGS: CTA: The heart is normal in size. There is no pericardial effusion. No thoracic aortic aneurysm or dissection. There is patency of the imaged great vessels. Streak artifact from the patient's neck less. Satisfactory opacification of the pulmonary arterial tree. No filling defects are identified to suggest thromboembolic disease. CT CHEST: Unremarkable thyroid. No pathologically enlarged lymph nodes are identified. There is no pneumothorax, pleural effusion, airspace consolidation or overt pulmonary edema. Minimal subsegmental bibasilar atelectasis. No airspace consolidation typical for pneumonia. There are no suspicious pulmonary nodules or masses identified. Hepatic steatosis. No acute process of the imaged upper abdomen. Unremarkable soft tissues. Healing subacute nondisplaced fracture of the anterolateral right sixth rib. No acute fracture or destructive bone lesion. IMPRESSION: 1. Unremarkable CTA of the chest. No pulmonary emboli identified. 2. Hepatic steatosis. 3. Healing subacute nondisplaced fracture of the anterolateral aspect of the rig ht sixth rib. ACT 112: Negative or not required by law. The above report was generated using voice recognition software. It may contain grammatical, syntax or spelling errors. Electronically signed by: Tyler Pinon M.D. 03/18/2022 7:[address] head: Comparison: 03/24/2021. No ICH, mass-effect or edema. No evidence of acute cortical stroke. Mild periventricular small vessel ischemic change. Mild generalized brain atrophy. Visualized sinuses and mastoid air cells are clear. Radiologist: Ines Simms MD ECG Data Attestation: I personally reviewed and interpreted this ECG as follows: Indication: + weakness Rate (beats per minute): 97 Rhythm: + normal sinus ECG Intervals/blocks: + Normal QRS and + Normal QT ECG [place]: + Normal ECG ST segments: + Normal ST segments MDM Narrative An order was placed for continuous cardiac monitoring. The monitor shows a rate of _80_ with _normal sinus__ rhythm. Patient has no contributory family history. Patient was first seen and observation began at 0032 and was necessary in order to determine evaluate symptoms, provide IV fluids, treat infection, and monitor for changes. Upon re- evaluation, 7 hours of observation revealed that the patient should be admitted. Discharge from observation at 0730. This is a 57-year-old female presents emergency department due to concern for dehydration, head injury, recent illness. Patient did appear clinically dehydrated although she was hemodynamically stable. Patient does have a history of dizziness and frequent falls although this evening was unable to catch her self and did hit her head. Patient had no other concern for trauma or injury following the fall. Patient started on IV fluid rehydration, labs been drawn and sent prior to my evaluation, and she was sent for imaging. CT of the head was reassuring. Chest x-ray reassuring. Patient did complain of persistent dyspnea and concern for evolving URI. Patient's nasal swab was negative. Patient was given several liters of IV fluids and eventually was able to urinate. Urine suggestive of UTI. Due to persistent systemic symptoms patient covered with IV antibiotics. Culture pending. Patient did have a leukocytosis of 16, no evidence of significant PAMELLA. Patient was unable to even stand at bedside due to significant weakness and dizziness. Patient had last night given herself stress dose steroids. I did discuss the case with hospitalist for additional inpatient evaluation and management. Impression & Plan Weakness, Adrenal insufficiency, UTI (urinary tract infection), CHI (closed head injury), Acute dehydration Discharge Plan Visit Data Chief Complaint: Fall Stated Complaint: FALL,HIT HEAD,CONFUSION,LOSS OF BALANCE ED Provider: Maris Olsen Discharge Problem: Weakness, Adrenal insufficiency, UTI (urinary tract infection), CHI (closed head injury), Acute dehydration Patient Disposition: Admitted As Inpatient Discharge Instructions Interventions: ED Discharge Assessment Last Done: 03/18/22 10:15
[2022-03-18 01:11] LABS: Hematocrit (blood only) 45.9 % (34.1-44.9); Hemoglobin 16.4 g/dl (12.0-16.0); Mean Corpuscular Hemoglobin 35.3 pg (25.0-34.0); Mean Corpuscular Hgb Conc 35.7 g/dL (32.0-36.0); Mean Corpuscular Volume 98.7 fL (80.0-100.0); Mean Platelet Volume 10.8 fL (9.4-12.3); Platelet Count 244 K/uL (130-400); RDW Coefficient of Variation 11.7 % (11.5-14.5); RDW Standard Deviation 42.7 fL (36.4-46.3); Red Blood Count 4.65 M/uL (3.93-5.22); White Blood Count 16.54 K/ul (4.8-10.8)
[2022-03-18 01:31] LABS: Basophils # (auto) 0.09 K/uL (0-0.2); Basophils % (auto) 0.5 %; Eosinophils # (auto) 0.26 K/uL (0-0.50); Eosinophils % (auto) 1.6 %; Immature Granulocytes # (auto) 0.09 K/uL (0.00-0.02); Immature Granulocytes % (auto) 0.5 %; Lymphocytes # (auto) 5.35 K/uL (1.2-3.4); Lymphocytes % (auto) 32.3 %; Monocytes # (auto) 1.39 K/uL (0.24-0.82); Monocytes % (auto) 8.4 %; Neutrophils # (auto) 9.36 K/uL (1.4-6.5); Neutrophils % (auto) 56.7 %
[2022-03-18 01:33] LABS: Albumin Globulin Ratio 1.4 (0.9-2); Albumin Level 4.2 gm/dl (3.4-5.0); BUN Creatinine Ratio 13.4 (10-20); Bilirubin,Total 0.4 mg/dl (0.2-1.0); Calcium 9.9 mg/dl (8.5-10.1); Creatinine Clr Calc Pharmacy 68.8 ml/min; Est GFR (African American) 63.1 ml/min; Est GFR (Non-African American) 54.5 ml/min; Potassium 3.2 mmol/L (3.5-5.1); Total Protein 7.2 gm/dl (6.0-8.3)
[2022-03-18 02:20] LABS: Influenza A virus by PCR Negative (Neg); Influenza B virus by PCR Negative (Neg); RSV by PCR Negative (Neg); SARS CoV2 RNA(COVID-19) InHosp NEGATIVE (Negative)
[2022-03-18 02:48] LABS: Appearance Urine Clear (Clear); Bacteria Urine Automated 4+ (Negative); Bilirubin Urine Negative (Negative); Blood Urine Negative (Negative); Color Urine Yellow; Epithelial Cell Urine Auto >30 /lpf (0-5); Glucose Urine UA Negative (Negative); Ketones Urine Negative (Negative); Leukocyte Esterase Urine Trace (Negative); Nitrite Urine Positive (Negative); Protein Urine Negative (Negative); RBC Urine Automated 0-4 /hpf (0-4); Specific Gravity Urine 1.013 (1.000-1.030); Urobilinogen Urine Negative (Negative); pH Urine 5.5 (4.5-7.5)
[2022-03-18] MEDS ORDERED: cefTRIAXone SODIUM 2,000 MG/70 ML BAG IV STA (03:13)
[2022-03-18] MEDS ORDERED: SODIUM CHLORIDE 0.9% 1000ML 1,000 ML IV ONE (04:14)
[2022-03-18] MEDS ORDERED: SODIUM CHLORIDE 0.9% 1000ML 1,000 ML IV SCH (05:45)
[2022-03-18] MEDS ORDERED: OPTIRAY 320 500ml IV ONE (05:58)
--- NOTE | 2022-03-18 06:51 | CT Scan Report ---
CT head/brain wo con CLINICAL HISTORY: 57 years-old Female with trauma. Acute head trauma status post fall TECHNIQUE: Multiple axial CT images of the head were obtained without contrast. A dose lowering tech nique was utilized adhering to the principles of ALARA. CT DOSE: 614.27 mGy.cm COMPARISON: 03/24/2021 FINDINGS: No acute intracranial hemorrhage, midline shift, intracranial mass, hydrocephalus, territorial ischem ia or abnormal extra-axial collection. Streak artifact from the patient's earrings limits the study. Mild involutional changes. Mild white matter hypodensities may represent a component of chronic micro vascular ischemic disease. The calvarium is intact. The paranasal sinuses, mastoid air cells, and middle ear cavities are clear . IMPRESSION: No acute intracranial abnormality or calvarial fracture. ACT 112: Negative or not required by law. The above report was generated using voice recognition software. It may contain grammatical, syntax o r spelling errors. Electronically signed by: Tyler Pinon M.D. 03/18/2022 6:50 AM
--- NOTE | 2022-03-18 07:28 | CT Scan Report ---
CT angio chest PE protocol CT DOSE: 701.36 mGy.cm HISTORY: 57 years-old Female with PE. Acute shortness of breath TECHNIQUE: Multiple CTA images of the chest were obtained after the intravenous administration of 120 ml Optiray. Coronal and sagittal MIPS were obtained from the axial data set and were submitted for review. All measurements were obtained according to NASCET criteria. A dose lowering technique was u tilized adhering to the principles of ALARA. COMPARISON: CTA chest 04/09/2019 FINDINGS: CTA: The heart is normal in size. There is no pericardial effusion. No thoracic aortic aneurysm or dissect ion. There is patency of the imaged great vessels. Streak artifact from the patient's neck less. Sati sfactory opacification of the pulmonary arterial tree. No filling defects are identified to suggest t hromboembolic disease. CT CHEST: Unremarkable thyroid. No pathologically enlarged lymph nodes are identified. There is no pneumothorax , pleural effusion, airspace consolidation or overt pulmonary edema. Minimal subsegmental bibasilar a telectasis. No airspace consolidation typical for pneumonia. There are no suspicious pulmonary nodule s or masses identified. Hepatic steatosis. No acute process of the imaged upper abdomen. Unremarkable soft tissues. Healing s ubacute nondisplaced fracture of the anterolateral right sixth rib. No acute fracture or destructive bone lesion. IMPRESSION: 1. Unremarkable CTA of the chest. No pulmonary emboli identified. 2. Hepatic steatosis. 3. Healing subacute nondisplaced fracture of the anterolateral aspect of the right sixth rib. ACT 112: Negative or not required by law. The above report was generated using voice recognition software. It may contain grammatical, syntax o r spelling errors. Electronically signed by: Tyler Pinon M.D. 03/18/2022 7:26 AM
[2022-03-18] MEDS ORDERED: HYDROCORTISONE SOD SUCCINATE 100 MG/2 ML VIAL IV STA (07:57)
--- NOTE | 2022-03-18 08:46 | History & Physical Report ---
Date of Service March 18, 2022 Assessment & Plan (1) Encephalopathy: Plan: Patient presents with some encephalopathy unclear whether metabolic or toxic. 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 Patient states that many of her medications are used to treat trigeminal neuralgia. These medications are listed under primary care notes in the outpatient office. Patient is evidence of a subacute right rib fracture which is concerning given her gait instability. This area is nontender or bruise at this time Regarding her encephalopathy will have her on ceftriaxone for abnormal urinalysis on presentation in case this is metabolic encephalopathy. We will employ pain management's expertise to try to streamline and convert her medications to a more favorable collection of medications to treat any chronic pain issues that she may have. (2) Diabetes: Plan: With regard to her diabetes the patient will be kept on her basal insulin she typically uses a sliding scale to cover herself at home this will be continued. Is unclear whether she has been tested in the past for diabetic nephropathy but she is not on an RASHAD or ARB at this time Certainly her steroids for adrenal insufficiency does influence her diabetic glucose control she is given stress dose at this time and will likely need more coverage in the interim (3) Adrenal insufficiency: Plan: Patient states her med reconciliation is incorrect she typically takes 20 mg of hydrocortisone in the morning and 50 mg in the late afternoon she is currently on stress dose (4) Trigeminal neuralgia: Plan: Patient has this listed on her problem list that her medical primary care office. Patient claims many of her pain medications are related to this issue. She typically takes Amitriptyline 50 in the morning 200 at night Diazepam 5 mg 4 times daily Oxycodone 15 mg 4 times daily as needed Codeine 60 mg at bedtime as needed Gabapentin 800 mg 4 times daily BuSpar 15 twice daily Will ask toy painter to help us streamline these today DC redundant and probably not a most favorable regiment to help with this patient's possible toxic encephalopathy (5) Hypothyroidism: Plan: Continues on Synthroid 100 mcg a day TSH will be checked in the morning (6) Elevated LFTs: Plan: Very mildly elevated LFTs likely due to steatohepatitis as seen on CT of the chest Plan Enoxaparin for DVT prevention Hypokalemia will be augmented both orally and with IV fluid containing potassium Patient is a full code History of Present Illness Primary Care Provider: John Mei MD 57-year-old female who presents after fall in which she struck her head but does not lose consciousness. Patient states she falls frequently and was unable to catch her self this time. She has evidence of a rib fracture on CT scan, she is with Polypharmacy on intake. She states she has many balance issues. Patient states she has been more fatigued in recent days with a sore throat and a cough and thought she was ill. She denies any overt known sick contact.This pt recently had her amitriptyline adjust to a higher dose. Patient states she did give herself a stress dose of steroids per her protocol one day prior too presenting to the ER IN the Er she is with gait instability, has evidence of a abnormal UA, she has encephalopathy weather metabolic from uti or toxic from medications Allergies Allergy/AdvReac Type Severity Reaction Status Date / Time empagliflozin Allergy Severe DKA Verified 03/18/22 02:01 adhesive tape Allergy Mild SKIN Verified 03/18/22 02:01 SENSITIVITY Home Medications Medication Instructions Recorded Confirmed Type buspirone 15 mg tablet 15 mg PO BID 04/19/19 03/18/22 History gabapentin 800 mg tablet 800 mg PO QID 04/19/19 03/18/22 History zolpidem 10 mg tablet (Ambien) 10 mg PO HS PRN Sleep 04/19/19 03/18/22 History codeine sulfate 60 mg tablet 60 mg PO HS 02/02/20 03/18/22 History drospirenone 3 mg-ethinyl 1 tab PO DAILY 02/02/20 03/18/22 History estradiol 0.03 mg tablet (Alice (28)) hydrocortisone 20 mg tablet 20 mg PO QAM 02/02/20 03/18/22 History hydrocortisone 5 mg tablet 5 mg PO QPM 02/02/20 03/18/22 History insulin aspart U-100 100 unit/mL 1 sliding scale dose subcut UD 02/02/20 03/18/22 History (3 mL) subcutaneous pen (Novolog Flexpen U-100 Insulin aspart) insulin detemir U-100 100 unit/mL 38 unit subcut BID 02/02/20 03/18/22 History subcutaneous solution (Levemir U-100 Insulin) levothyroxine 100 mcg tablet 100 mcg PO QAM 02/02/20 03/18/22 History (Synthroid) oxycodone 15 mg tablet 15 mg PO Q4H PRN Pain 02/02/20 03/18/22 History spironolactone 100 mg tablet 100 mg PO QAM 02/02/20 03/18/22 History amitriptyline 50 mg tablet See Rx Instructions .Route .COMPLEX 03/18/22 03/18/22 History diazepam 5 mg tablet 5 mg PO QID 03/18/22 03/18/22 History somatropin 30 mg/3 mL (10 mg/mL) 1.8 mg subcut DAILY 03/18/22 03/18/22 History subcutaneous pen injector (Norditropin FlexPro) Past Med/Surg History Medical History (Updated 03/18/22 @ 15:01 by Gene Montez MD) Adrenal abnormality LOW ADRENAL FUNCTION Adrenal insufficiency Anxiety Diabetes mellitus, type 2 Environmental allergies MOLD Eye pressure ELEVATED Hx of gastric ulcer Hx of migraines Hypothyroidism Lumbar herniated disc PCOS (polycystic ovarian syndrome) Trigeminal neuralgia Surgical History History of colonoscopy History of esophagogastroduodenoscopy (EGD) History of right cataract surgery History of tonsillectomy Family History Father Family history of diabetes mellitus Other Cancer Hearing loss No family history of allergies No family history of bleeding disorder No significant family history Denies family history of Heart disease Hypertension Stroke Asthma Social History Smoking Status: Never smoker Second Hand Exposure: No; Do You Dip or Chew Tobacco: No; Tobacco Cessation Education Requested by Patient: No Hx Alcohol Use: No Hx Substance Use: No Preferred Language: Mozambican Communication Ability: Effective Toucher Up Required: No Beliefs That Will Affect Care: None marital status: Single Current Living Situation: Alone Current Living Situation Comment: DAUGHTER current occupational status: employed 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 How many Children do You have: 2 Other Information That Helps Us Care for You: No Feels Safe at Home: Yes Safety Concerns: Feels Safe At This Time Assistive Devices: None Review of Systems Review of Systems: Mild distress and fatigue no headache, no visual changes no speech or swallowing issues no chest pain, pressure or palpitations, no tenderness from fracture rib no shortness of breath, cough or wheezes no abdominal pain, nausea or vomiting, does have abdominal distention no dysuria, hematuria or frequency no focal joint pain or swelling no back pain, CVA tenderness or radicular pain bruising on left anterior mills no focal signs of weakness or numbness or altered sensation no complaints of anxiety or depression.. Physical Exam Physical Exam: The patient appeared well nourished and normally developed. Vital signs as documented. Head exam is normocephalic atraumatic Neck is without JVD, thyromegaly, or carotid bruits. Lungs are clear to auscultation, no focal loss of breath sounds Cardiac exam, Rhythm is regular.. No murmurs, rubs or gallops. ribs are not tender Abdominal exam reveals normal bowel sounds, soft non tender, no masses, protuberant abdomen but not with hepatomegaly of fluid wave Extremities are nonedematous and both pedal pulses are present Neurologic exam is alert and orientedx3 she seems sedate, unstable balance, no focal loss of strength or sensation, no asterixis Skin is without bruises or rashes Results & Data Results & Data ([facility]) Vital Signs (Past 12 Hours) Vital Signs Temp Pulse Pulse Resp BP BP Pulse Ox 03/18/22 08:22 80 14 123/67 93 03/18/22 08:05 88 L 03/18/22 07:30 90 18 112/74 91 03/18/22 06:00 82 16 122/74 92 03/18/22 04:00 86 16 121/72 91 03/18/22 03:00 87 17 132/79 94 03/18/22 01:46 95 03/18/22 01:43 88 L 03/18/22 00:45 96 03/18/22 00:45 94 H 21 118/75 92 03/17/22 22:41 97.2 F L 110 H 20 113/64 96 O2 Del Method O2 Flow Rate 03/18/22 08:22 Nasal Cannula 2 03/18/22 08:05 Room Air 03/18/22 07:30 03/18/22 06:00 Room Air 03/18/22 04:00 Room Air 03/18/22 03:00 Nasal Cannula 2 03/18/22 01:46 Nasal Cannula 2 03/18/22 01:43 Room Air 03/18/22 00:45 Room Air 03/18/22 00:45 Room Air 03/17/22 22:41 Room Air Diagnostic Findings Chest X-Ray 03/17/22 22:50 XR chest 1V portable HISTORY: 57 years-old Female weakness acute weakness COMPARISON: CTA chest 03/18/2022 TECHNIQUE: AP view of the chest FINDINGS: Cardiomediastinal and hilar silhouettes are within normal limits. There is no pneumothorax, pleural effusion, airspace consolidation or overt pulmonary edema. Mild right hemidiaphragmatic elevation. Bones appear grossly intact. IMPRESSION: No acute process. ACT 112: Negative or not required by law. The above report was generated using voice recognition software. It may contain grammatical, syntax or spelling errors. Electronically signed by: Tyler Pinon M.D. 03/18/2022 9:[address] 03/18/22 01:03 CT head/brain wo con CLINICAL HISTORY: 57 years-old Female with trauma. Acute head trauma status post fall TECHNIQUE: Multiple axial CT images of the head were obtained without contrast. A dose lowering technique was utilized adhering to the principles of ALARA. CT DOSE: 614.27 mGy.cm COMPARISON: 03/24/2021 FINDINGS: No acute intracranial hemorrhage, midline shift, intracranial mass, hydrocephalus, territorial ischemia or abnormal extra-axial collection. Streak artifact from the patient's earrings limits the study. Mild involutional changes. Mild white matter hypodensities may represent a component of chronic microvascular ischemic disease. The calvarium is intact. The paranasal sinuses, mastoid air cells, and middle ear cavities are clear. IMPRESSION: No acute intracranial abnormality or calvarial fracture. ACT 112: Negative or not required by law. The above report was generated using voice recognition software. It may contain grammatical, syntax or spelling errors. Electronically signed by: Tyler Pinon M.D. 03/18/2022 6:50 AM Chest CTA 03/18/22 05:33 CT angio chest PE protocol CT DOSE: 701.36 mGy.cm HISTORY: 57 years-old Female with PE. Acute shortness of breath TECHNIQUE: Multiple CTA images of the chest were obtained after the intravenous administration of 120 ml Optiray. Coronal and sagittal MIPS were obtained from the axial data set and were submitted for review. All measurements were obtained according to NASCET criteria. A dose lowering technique was utilized adhering to the principles of ALARA. COMPARISON: CTA chest 04/09/2019 FINDINGS: CTA: The heart is normal in size. There is no pericardial effusion. No thoracic aortic aneurysm or dissection. There is patency of the imaged great vessels. Streak artifact from the patient's neck less. Satisfactory opacification of the pulmonary arterial tree. No filling defects are identified to suggest thromboembolic disease. CT CHEST: Unremarkable thyroid. No pathologically enlarged lymph nodes are identified. There is no pneumothorax, pleural effusion, airspace consolidation or overt pulmonary edema. Minimal subsegmental bibasilar atelectasis. No airspace consolidation typical for pneumonia. There are no suspicious pulmonary nodules or masses identified. Hepatic steatosis. No acute process of the imaged upper abdomen. Unremarkable soft tissues. Healing subacute nondisplaced fracture of the anterolateral right sixth rib. No acute fracture or destructive bone lesion. IMPRESSION: 1. Unremarkable CTA of the chest. No pulmonary emboli identified. 2. Hepatic steatosis. 3. Healing subacute nondisplaced fracture of the anterolateral aspect of the right sixth rib. ACT 112: Negative or not required by law. The above report was generated using voice recognition software. It may contain grammatical, syntax or spelling errors. Electronically signed by: Tyler Pinon M.D. 03/18/2022 7:26 AM PG Care Time/CCT Total # of Minutes Spent Total Time Spent with Patient: Total time spent is greater than 50% in coordination of care (as documented) at patient's floor/unit and/or counseling patient: Coding Level of Care Code 76179 Initial Inpt Care Lvl 3 Diagnoses Encephalopathy G93.40 Diabetes E11.9 Adrenal insufficiency E27.40 Trigeminal neuralgia G50.0 Hypothyroidism E03.9 Elevated LFTs R94.5
--- NOTE | 2022-03-18 09:05 | XRay Report ---
XR chest 1V portable HISTORY: 57 years-old Female weakness acute weakness COMPARISON: CTA chest 03/18/2022 TECHNIQUE: AP view of the chest FINDINGS: Cardiomediastinal and hilar silhouettes are within normal limits. There is no pneumothorax, pleural e ffusion, airspace consolidation or overt pulmonary edema. Mild right hemidiaphragmatic elevation. Bon es appear grossly intact. IMPRESSION: No acute process. ACT 112: Negative or not required by law. The above report was generated using voice recognition software. It may contain grammatical, syntax o r spelling errors. Electronically signed by: Tyler Pinon M.D. 03/18/2022 9:03 AM
[2022-03-18] MEDS ORDERED: AMITRIPTYLINE HCL 50 MG TAB PO SCH (10:34)
[2022-03-18] MEDS ORDERED: DEXTROSE 50% 50 ML SYRINGE IV PRN (10:34)
[2022-03-18] MEDS ORDERED: GLUCAGON FOR INJ 1 MG VIAL SQ PRN (10:34)
[2022-03-18] MEDS ORDERED: ALUMINUM/MAGNESIUM SUSP 30 ML UDC PO PRN (10:34)
[2022-03-18] MEDS ORDERED: CARBOHYDRATES FOR HYPOGLYCEMIA PO PRN (10:34)
[2022-03-18] MEDS ORDERED: HYDROCORTISONE SOD SUCCINATE 100 MG/2 ML VIAL IV SCH (10:34)
[2022-03-18] MEDS ORDERED: ACETAMINOPHEN 325 MG TAB PO PRN (10:34)
[2022-03-18] MEDS ORDERED: GLUCOSE 10 TAB/TUBE PO PRN (10:34)
[2022-03-18] MEDS ORDERED: GLUCOSE 40% GEL 15 GM TUBE PO PRN (10:34)
[2022-03-18] MEDS ORDERED: NSS + 20MEQ KCL 20 MEQ/1,000 ML BAG IV SCH (10:45)
[2022-03-18] MEDS: AMITRIPTYLINE HCL 50 MG TAB PO SCH ×2 (11:18→19:57)
[2022-03-18] MEDS: diazePAM 5 MG TABLET PO SCH ×4 (11:18→21:31)
[2022-03-18] MEDS: GABAPENTIN 800 MG TAB PO SCH ×4 (11:18→19:56)
[2022-03-18] MEDS: busPIRone 15 MG TAB PO SCH ×2 (11:18→19:56)
[2022-03-18] MEDS: LEVOTHYROXINE SODIUM 100 MCG TABLET PO SCH ×2 (11:18→19:57)
[2022-03-18] MEDS: ENOXAPARIN INJ 40 MG/0.4 ML SYR SQ SCH (11:19)
[2022-03-18] MEDS ORDERED: CODEINE SULFATE 30 MG TAB PO PRN (11:26)
[2022-03-18] MEDS: INSULIN ASPART PER UNIT SC SCH ×3 (11:36→21:07)
[2022-03-18] MEDS: LANTUS PER UNIT CHARGE SQ SCH ×2 (11:36→21:07)
[2022-03-18] MEDS: HYDROCORTISONE SOD 50 MG in SYRINGE 0 ML IV SCH ×2 (13:05→19:55)
[2022-03-18] MEDS: POTASSIUM CHLORIDE CRTAB 20 MEQ TABCR PO SCH ×2 (13:05→20:02)
--- NOTE | 2022-03-18 14:35 | Electrocardiogram Report ---
Test Reason : Blood Pressure : / mmHG Vent. Rate : 097 BPM Atrial Rate : 097 BPM P-R Int : 164 ms QRS Dur : 104 ms QT Int : 360 ms P-R-T Axes : 050 -74 054 degrees QTc Int : 457 ms Normal sinus rhythm Left axis deviation Pulmonary disease pattern Abnormal ECG When compared with ECG of 23-APR-2019 08:07, No significant change was found Confirmed by Holden Miles ([id number]) on 03/18/2022 2:35:14 PM Referred By: REFERRED SELF Confirmed By:Holden Miles
[2022-03-18] MEDS: oxyCODONE HCL IR 5 MG TAB (IMMEDIATE RELEASE) PO PRN ×2 (18:19→21:31)
[2022-03-18] MEDS ORDERED: AMITRIPTYLINE HCL 100 MG TAB PO SCH (21:00)
[2022-03-19] MEDS: oxyCODONE HCL IR 5 MG TAB (IMMEDIATE RELEASE) PO PRN ×2 (05:56→10:12)
[2022-03-19] MEDS: HYDROCORTISONE SOD 50 MG in SYRINGE 0 ML IV SCH (05:56)
[2022-03-19] MEDS ORDERED: cefTRIAXone SODIUM 2,000 MG in DEXTROSE 5% 50 ML IV SCH (06:00)
[2022-03-19 07:38] LABS: Hematocrit (blood only) 43.2 % (34.1-44.9); Hemoglobin 15.2 g/dl (12.0-16.0); Mean Corpuscular Hemoglobin 35.4 pg (25.0-34.0); Mean Corpuscular Hgb Conc 35.2 g/dL (32.0-36.0); Mean Corpuscular Volume 100.7 fL (80.0-100.0); Mean Platelet Volume 10.5 fL (9.4-12.3); Platelet Count 215 K/uL (130-400); RDW Coefficient of Variation 11.7 % (11.5-14.5); RDW Standard Deviation 43.3 fL (36.4-46.3); Red Blood Count 4.29 M/uL (3.93-5.22); White Blood Count 9.95 K/ul (4.8-10.8)
[2022-03-19 08:04] LABS: Albumin Level 3.5 gm/dl (3.4-5.0); BUN Creatinine Ratio 14.6 (10-20); Bilirubin Direct 0.1 mg/dl (0-0.2); Bilirubin,Total 0.3 mg/dl (0.2-1.0); Calcium 9.3 mg/dl (8.5-10.1); Creatinine Clr Calc Pharmacy 89.4 ml/min; Est GFR (African American) 83.4 ml/min; Est GFR (Non-African American) 71.9 ml/min; Total Protein 6.1 gm/dl (6.0-8.3)
[2022-03-19] MEDS ORDERED: HYDROCORTISONE 10 MG TAB PO SCH ×2 (09:00→21:00)
[2022-03-19] MEDS: INSULIN ASPART PER UNIT SC SCH ×2 (09:36→13:07)
[2022-03-19] MEDS: diazePAM 5 MG TABLET PO SCH ×2 (09:37→13:07)
[2022-03-19] MEDS: busPIRone 15 MG TAB PO SCH (09:38)
[2022-03-19] MEDS: GABAPENTIN 800 MG TAB PO SCH ×2 (09:38→13:08)
[2022-03-19] MEDS: LANTUS PER UNIT CHARGE SQ SCH (10:00)
[2022-03-19] MEDS: ENOXAPARIN INJ 40 MG/0.4 ML SYR SQ SCH (10:01)
[2022-03-19] MEDS: POTASSIUM CHLORIDE CRTAB 20 MEQ TABCR PO SCH (10:03)
--- NOTE | 2022-03-19 12:42 | Discharge Summary ---
Date of Service March 19, 2022 Admission HPI Per Admitting Provider 57-year-old female who presents after fall in which she struck her head but does not lose consciousness. Patient states she falls frequently and was unable to catch her self this time. She has evidence of a rib fracture on CT scan, she is with Polypharmacy on intake. She states she has many balance issues. Patient states she has been more fatigued in recent days with a sore throat and a cough and thought she was ill. She denies any overt known sick contact.This pt recently had her amitriptyline adjust to a higher dose. Patient states she did give herself a stress dose of steroids per her protocol one day prior too presenting to the ER IN the Er she is with gait instability, has evidence of a abnormal UA, she has encephalopathy weather metabolic from uti or toxic from medications Admission Exam Per Admitting Provider The patient appeared well nourished and normally developed. Vital signs as documented. Head exam is normocephalic atraumatic Neck is without JVD, thyromegaly, or carotid bruits. Lungs are clear to auscultation, no focal loss of breath sounds Cardiac exam, Rhythm is regular.. No murmurs, rubs or gallops. ribs are not tender Abdominal exam reveals normal bowel sounds, soft non tender, no masses, protuberant abdomen but not with hepatomegaly of fluid wave Extremities are nonedematous and both pedal pulses are present Neurologic exam is alert and orientedx3 she seems sedate, unstable balance, no focal loss of strength or sensation, no asterixis Skin is without bruises or rashes Principal Diagnosis ENCEPHALOPATHY, UTI Discharge Exam Constitutional WD/WN, vitals as above Eyes PERRL, conjunctivae normal, anicteric sclerae Respiratory normal respiratory effort, lungs clear to auscultation Cardiovascular RRR, no murmur, no edema Musculoskeletal no cyanosis or clubbing, extremities motor strength 5/5 Skin no rashes, warm and dry Psychiatric Orientation: oriented x 3 Affect: + irritable affect Mood: + irritable mood Discharge Data Allergies Allergy/AdvReac Type Severity Reaction Status Date / Time empagliflozin Allergy Severe DKA Verified 03/18/22 02:01 adhesive tape Allergy Mild SKIN Verified 03/18/22 02:01 SENSITIVITY Consultations 03/18/22 07:57 ED Decision to Admit Stat 03/18/22 10:34 Consult Pain Management Routine Ordered Studies 03/18/22 01:03 CT head/brain wo con Urgent 03/18/22 05:33 CT angio chest PE protocol Urgent Hospital Course (1) Weakness: (2) Adrenal insufficiency: Metabolic encephalopathy - Unclear etiology/multifactorial. Adrenal insufficiency/Hypo glycemia/infection/polypharmacy leading to oversedation and poor self-care. Mentation clear at on day of discharge Possible UTI UA with sign of infection. Started on IV ceftriaxone for concern of UTI. Urine cx growing gram neg bacilli at the time of discharge. Sent home on keflex to complete course. Gait disturbance with possible recent Fall Subacute right rib fracture which is concerning given her gait instability. Area nontender. Offered PT/OT services during hospital - declined. Uses cane at home. Adrenal insufficiency: Will need continued emphasis of Role of stress dosing steroids. 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 Amitriptyline 50 in the morning 200 at night Diazepam 5 mg 4 times daily Oxycodone 15 mg 4 times daily as needed Codeine 60 mg at bedtime as needed Gabapentin 800 mg 4 times daily BuSpar 15 twice daily DM Last A1c in chart from 2019 - 10.8 No hypoglycemic events while in the hospital. Hypothyroidism: Continues on Synthroid 100 mcg a day Elevated LFTs: Very mildly elevated LFTs likely due to steatohepatitis as seen on CT of the chest Total Time Total Time Spent Total Time Spent (In Minutes): 30 Discharge Plan Discharge Items Patient Disposition: Home - Self-Care Reason For Visit: ENCEPHALOPATHY, UTI POA Discharge Diagnosis: Encephalopathy Activity: Resume your previous activity Non-emergency contact: Primary Care Provider Call non-emergency contact if: you have any medication questions, your pain is unusual for you and your temperature is above 101.5 Follow-up/Referrals: John Mei MD [Primary Care Provider] - 04/04/22 3:40 pm (follow up with Dr Mei: Monday April 04, 2022 @ 3:40pm) Diet: Regular Addtl Attending Provider Instructions: You were admitted to the hospital for encephalology and UTI. You were treated with IV fluids and food got better. You will be treated for your UTI with a short course of antibiotics. You had some imbalance issues but decline PT/OT at this time. Please follow up with your PCP about issues with your imbalance. A discharge summary will be sent to your primary care physician to ensure continuity of care. Please bring this discharge summary with you to your next office appointment so that your provider can review it at that time. Follow-up appointments: * Make a follow-up appointment with your PCP within the next week. It is very important that you follow up with them shortly after discharge from the hospital. Medications: Your medication list has been reviewed and reconciled upon discharge to ensure accuracy and continuity of care. An updated list of all your medications is included with your hospital discharge paperwork. Please review this list closely, and make note of any changes. * We sent a new medication called Cephalexin to your pharmacy. Take Cephalexin (500mg) 1 tabs 4 times a day for 7 days. * If you have any issues filling these prescriptions, please call [phone] and ask to leave a message for Dr. Quezada. Take your medications as instructed; do not skip a dose of your medicines. Make sure all of your doctors know every medicine you are taking (including [id number]-vovfytn medicines, vitamins, and supplements). Call your primary care provider before taking any new medicines (including over- the-counter medicines, vitamins, and supplements), because some of these may interact with your current medications, or may make your symptoms worse. Tell your primary care provider if you cannot afford your medications. CONTACT YOUR PRIMARY CARE PROVIDER if you experience any of the following: medication issues Increase in imbalance Difficulty following your treatment plan, or difficulty taking medications CALL 911 OR GO TO THE EMERGENCY DEPARTMENT if you experience any of the following: Sudden, severe abdominal pain or nausea/vomiting Severe chest pain, or chest pain that radiates (moves) to your jaw or arm Sudden, severe shortness of breath or difficulty breathing Thank you for allowing us to participate in your care. Pending Studies at Discharge: No Stand-Alone Forms: [facility] Medications and DC Order Prescriptions: New cephalexin 500 mg capsule 500 mg PO QID 7 Days Qty: 28 0RF Continued gabapentin 800 mg Tablet 800 mg PO QID buspirone 15 mg Tablet 15 mg PO BID zolpidem [Ambien] 10 mg Tablet 10 mg PO HS PRN (Reason: Sleep) hydrocortisone 5 mg Tablet 5 mg PO QPM spironolactone 100 mg Tablet 100 mg PO QAM oxycodone 15 mg Tablet 15 mg PO Q4H PRN (Reason: Pain) Label Comments: TAKES 4-6X PER DAY levothyroxine [Synthroid] 100 mcg Tablet 100 mcg PO QAM codeine sulfate 60 mg Tablet 60 mg PO HS hydrocortisone 20 mg Tablet 20 mg PO QAM Rx Instructions: PER PT "DR SAID I SHOULD DOUBLE DOSE WHEN NOT FEELING WELL". drospirenone-ethinyl estradiol [Alice (28)] 3-0.03 mg Tablet 1 tab PO DAILY insulin aspart U-100 [Novolog Flexpen U-100 Insulin] 100 unit/mL (3 mL) Insulin Pen 1 sliding scale dose SUBCUT UD Label Comments: "30 UNITS DAILY BASED ON FOOD INTAKE" Levemir U-100 Insulin 100 unit/mL Solution 38 unit SUBCUT BID Label Comments: TAKES DAILY AT 1200 amitriptyline 50 mg tablet See Rx Instructions .ROUTE .COMPLEX Rx Instructions: 50 mg; TAKES 50 MG QAM, THEN 200 MG QHS. diazepam 5 mg tablet 5 mg PO QID Norditropin FlexPro 30 mg/3 mL (10 mg/mL) pen injector 1.8 mg SUBCUT DAILY Discharge Orders: Discharge Order (Routine); Ordered 03/19/22 Ordered By: Boni Hernandez/Other Patient Handouts: Managing Type 2 Diabetes Admission Data Admit Date/Time: 03/18/22 08:56 Attending Provider: Carolyn Barraza Admit Provider: Gene Montez Primary Care Provider: John Mei Other Providers: Bebo Akhtar ; Jack Strong ; Gene Montez Other Interventions: Discharge Summary Assessment (RN) Last Done: 03/19/22 15:00 Supervising Physician Co-Signing Physician Notes Resident Physician Supervision Note: I independently interviewed and examined the patient and verified the franklin history and physical, reviewed labs and image studies and agree with resident findings and care plan. Resident Activity Tracking Resident Involvement: Resident Care Provided Care Provided: Adult Hospital Medicine
--- NOTE | 2022-03-19 13:16 | Pain Management Consultation ---
Date of Consultation March 19, 2022 History of Present Illness Attending Physician: Carolyn Barraza MD History of Present Illness Patient refused pain management consultation. Dr. Montez notified. Allergies Allergy/AdvReac Type Severity Reaction Status Date / Time empagliflozin Allergy Severe DKA Verified 03/18/22 02:01 adhesive tape Allergy Mild SKIN Verified 03/18/22 02:01 SENSITIVITY Home Medications Medication Instructions Recorded Confirmed Type buspirone 15 mg tablet 15 mg PO BID 04/19/19 03/18/22 History gabapentin 800 mg tablet 800 mg PO QID 04/19/19 03/18/22 History zolpidem 10 mg tablet (Ambien) 10 mg PO HS PRN Sleep 04/19/19 03/18/22 History codeine sulfate 60 mg tablet 60 mg PO HS 02/02/20 03/18/22 History drospirenone 3 mg-ethinyl 1 tab PO DAILY 02/02/20 03/18/22 History estradiol 0.03 mg tablet (Alice (28)) hydrocortisone 20 mg tablet 20 mg PO QAM 02/02/20 03/18/22 History hydrocortisone 5 mg tablet 5 mg PO QPM 02/02/20 03/18/22 History insulin aspart U-100 100 unit/mL 1 sliding scale dose subcut UD 02/02/20 03/18/22 History (3 mL) subcutaneous pen (Novolog Flexpen U-100 Insulin aspart) insulin detemir U-100 100 unit/mL 38 unit subcut BID 02/02/20 03/18/22 History subcutaneous solution (Levemir U-100 Insulin) levothyroxine 100 mcg tablet 100 mcg PO QAM 02/02/20 03/18/22 History (Synthroid) oxycodone 15 mg tablet 15 mg PO Q4H PRN Pain 02/02/20 03/18/22 History spironolactone 100 mg tablet 100 mg PO QAM 02/02/20 03/18/22 History amitriptyline 50 mg tablet See Rx Instructions .Route .COMPLEX 03/18/22 03/18/22 History diazepam 5 mg tablet 5 mg PO QID 03/18/22 03/18/22 History somatropin 30 mg/3 mL (10 mg/mL) 1.8 mg subcut DAILY 03/18/22 03/18/22 History subcutaneous pen injector (Norditropin FlexPro) cephalexin 500 mg capsule 500 mg PO QID 7 days #28 caps 03/19/22 Rx Patient History Medical History (Updated 03/19/22 @ 08:42 by Maris Olsen DO) Adrenal abnormality LOW ADRENAL FUNCTION Adrenal insufficiency Anxiety Diabetes mellitus, type 2 Environmental allergies MOLD Eye pressure ELEVATED Hx of gastric ulcer Hx of migraines Hypothyroidism Lumbar herniated disc PCOS (polycystic ovarian syndrome) Trigeminal neuralgia Surgical History History of colonoscopy History of esophagogastroduodenoscopy (EGD) History of right cataract surgery History of tonsillectomy Family History Father Family history of diabetes mellitus Other Cancer Hearing loss No family history of allergies No family history of bleeding disorder No significant family history Denies family history of Heart disease Hypertension Stroke Asthma Social History Smoking Status: Never smoker Second Hand Exposure: No; Do You Dip or Chew Tobacco: No; Tobacco Cessation Education Requested by Patient: No Hx Alcohol Use: No Hx Substance Use: No Preferred Language: Greek Communication Ability: Effective Structures Engineer Required: No Beliefs That Will Affect Care: None marital status: Single Current Living Situation: Alone Current Living Situation Comment: DAUGHTER current occupational status: employed 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
== END 2022-03-19 15:34 | disposition home or self-care (01) | DRG 689 ==
LOC: ED 22:32 → SUATTDRO 03-18 08:56 → 4W 03-18 08:56